=== PATIENT | male | born 1960 | race Caucasian/White ===

== ENCOUNTER 2016-11-08 22:25 | Inpatient (IN) | payer MEDICARE ==
[2016-11-08] MEDS ORDERED: ASPIRIN 81 MG CHEW PO STA (22:27)
[2016-11-08] MEDS ORDERED: SODIUM CHLORIDE 0.9% 1,000 ML IV STA ×2 (22:27)
--- NOTE | 2016-11-08 22:40 | ED ---
Syncope HPI - General Stated Complaint: Low Heart Rate Time Seen by Provider: 11/08/16 22:25 Source: patient, EMS, RN notes reviewed Mode of arrival: EMS - History of Present Illness Initial Comments: This is a 55-year-old male with a history of newly diagnosed diabetes history of COPD who still smokes also history of hypertension who had 2 brief syncopal episodes tonight prior to admission by EMS. He states it lasted no more than a minute each he was not really doing much at this time. He has had a recent cardiac workup at [facility]. He did not follow-up after this. He complains some chest tightness that he relates to his stress levels he is mother a lot recently did he was just diagnosed as being diabetic. He was brought in by EMS they did do 2 EKGs which did indicate third-degree heart block. He did attempt atropine which did not help the heart rate. Patient states she has of a history of alcoholic liver disease he has not drank in 5 years. MD Complaint: loss of consciousness - Related Data Home Medications Medication Instructions Recorded Confirmed ALPRAZolam [Xanax] 0.5 mg PO DAILY PRN 10/23/14 06/23/16 Bumetanide [BUMEX] 2 mg PO DAILY PRN 10/23/14 06/23/16 Ergocalciferol [Vitamin D2 50,000 unit PO QMONTH 10/23/14 06/23/16 (DRISDOL)] Gabapentin [Neurontin] 300 - 600 mg PO BID PRN 10/23/14 06/23/16 Lactulose 20 gm PO BID 10/23/14 06/23/16 Lisinopril-Hctz 10-12.5 mg 1 tab PO DAILY 10/23/14 06/23/16 [Zestoretic 10-12.5] Omeprazole [PriLOSEC] 20 mg PO AC-BRKFST 10/23/14 06/23/16 Potassium Chloride [Potassium 20 meq PO DAILY 10/23/14 06/23/16 Chloride ER] Promethazine [Phenergan] 25 mg PO DAILY PRN 10/23/14 06/23/16 Cetirizine HCl [Zyrtec] 10 mg PO DAILY 06/23/16 06/23/16 Dicyclomine [Bentyl] 10 mg PO DAILY 06/23/16 06/23/16 Meloxicam [Meloxicam] 15 mg PO DAILY 06/23/16 06/23/16 Multivitamins, Thera [Multivitamin] 1 tab PO DAILY 06/23/16 06/23/16 Simethicone [Gas-X] 125 mg PO DAILY 06/23/16 06/23/16 Thiamine [Vitamin B-1] 100 mg PO DAILY 06/23/16 06/23/16 Previous Rx's Medication Instructions Recorded Meclizine [Antivert] 25 mg PO TID #20 tab 06/23/16 Allergies Allergy/AdvReac Type Severity Reaction Status Date / Time No Known Allergies Allergy Verified 11/08/16 22:28 Review of Systems ROS Statement: Those systems with pertinent positive or pertinent negative responses have been documented in the HPI. ROS Other: All systems not noted in ROS Statement are negative. Past Medical History Past Medical History: COPD, GERD/Reflux, Hypertension Additional Past Medical History / Comment(s): Liver cirrhosis, IBS, Sciatica ddd neuropathy History of Any Multi-Drug Resistant Organisms: None Reported Past Surgical History: Orthopedic Surgery Additional Past Surgical History / Comment(s): left foot surgery Past Psychological History: No Psychological Hx Reported, Anxiety Smoking Status: Current every day smoker Past Alcohol Use History: Occasional Past Drug Use History: None Reported General Exam - General Exam Comments Initial Comments: This is a well-developed well-nourished awake alert oriented 3 male General appearance: alert, anxious Head exam: Present: atraumatic, normocephalic, normal inspection Eye exam: Present: normal appearance, PERRL, EOMI. Absent: scleral icterus, conjunctival injection, periorbital swelling ENT exam: Present: normal exam, mucous membranes moist Neck exam: Present: normal inspection. Absent: tenderness, meningismus, lymphadenopathy Respiratory exam: Present: normal lung sounds bilaterally. Absent: respiratory distress, wheezes, rales, rhonchi, stridor Cardiovascular Exam: Present: bradycardia. Absent: systolic murmur, diastolic murmur, rubs, gallop, clicks GI/Abdominal exam: Present: soft, normal bowel sounds. Absent: distended, tenderness, guarding, rebound, rigid Rectal exam: Present: deferred Extremities exam: Present: normal inspection, full ROM, normal capillary refill. Absent: tenderness, pedal edema, joint swelling, calf tenderness Back exam: Present: normal inspection Neurological exam: Present: alert, oriented X3, CN II-XII intact Psychiatric exam: Present: anxious Skin exam: Present: warm, dry, intact, normal color. Absent: rash Course Vital Signs 11/08/16 11/08/16 11/08/16 22:28 22:52 22:59 Temperature 97.2 F L Pulse Rate 26 L 28 L 35 L Respiratory 18 16 16 Rate Blood Pressure 124/59 116/58 O2 Sat by Pulse 100 94 L 94 L Oximetry - Reevaluation(s) Reevaluation #1: 11/08/16 22:40 I did discuss the case with Dr. Max from cardiology. Patient be started on dopamine the State Tested Nursing Assistant has been activated. Reevaluation #2: 11/08/16 23:12 Patient was started on dopamine minimal response to his heart rate. Reevaluation #3: 11/08/16 23:12 Dr. Stallings did come to the emergency department and did see the patient. Patient potassium was noted to be 4.3 is magnesium was 1.3 magnesium was ordered the State Tested Nursing Assistant is rated the patient will go to the State Tested Nursing Assistant. EKG Findings - EKG Results: EKG: interpreted by ERMD (Bradycardia with third-degree AV block rate was 31 QRS 192 QT/QTC of 620/445 evidence of septal infarct right bundle-branch block pattern.) Medical Decision Making - Medical Decision Making the patient will be transferred to the State Tested Nursing Assistant for pacemaker placement. I did discuss patient's stay with him as well as with his daughter who is a wheel blocker. - Lab Data Result diagrams: 11/08/16 22:33 11/08/16 22:33 Lab Results 11/08/16 11/08/16 11/08/16 Range/Units 22:33 22:33 22:33 WBC 10.0 (3.8-10.6) k/uL RBC 4.40 (4.30-5.90) m/uL Hgb 14.4 (13.0-17.5) gm/dL Hct 41.5 (39.0-53.0) % MCV 94.2 (80.0-100.0) fL MCH 32.7 (25.0-35.0) pg MCHC 34.8 (31.0-37.0) g/dL RDW 14.1 (11.5-15.5) % Plt Count 180 (150-450) k/uL Neutrophils % 67 % Lymphocytes % 21 % Monocytes % 6 % Eosinophils % 4 % Basophils % 1 % Neutrophils # 6.7 (1.3-7.7) k/uL Lymphocytes # 2.1 (1.0-4.8) k/uL Monocytes # 0.6 (0-1.0) k/uL Eosinophils # 0.4 (0-0.7) k/uL Basophils # 0.1 (0-0.2) k/uL PT (9.0-12.0) sec INR (<1.1) APTT (22.0-30.0) sec Sodium 141 (137-145) mmol/L Potassium 4.3 (3.5-5.1) mmol/L Chloride 104 (98-107) mmol/L Carbon Dioxide 26 (22-30) mmol/L Anion Gap 11 mmol/L BUN 17 (9-20) mg/dL Creatinine 1.27 H (0.66-1.25) mg/dL Est GFR (MDRD) Af Amer >60 (>60 ml/min/1.73 sqM) Est GFR (MDRD) Non-Af 59 (>60 ml/min/1.73 sqM) Glucose 145 H (74-99) mg/dL Calcium 9.1 (8.4-10.2) mg/dL Magnesium 1.3 L (1.6-2.3) mg/dL Total Bilirubin 0.9 (0.2-1.3) mg/dL AST 35 (17-59) U/L ALT 31 (21-72) U/L Alkaline Phosphatase 107 (38-126) U/L Total Creatine Kinase 65 (55-170) U/L CK-MB (CK-2) 0.6 (0.0-2.4) ng/mL CK-MB (CK-2) Rel Index 0.9 Troponin I 0.020 (0.000-0.034) ng/mL Total Protein 7.2 (6.3-8.2) g/dL Albumin 4.1 (3.5-5.0) g/dL 11/08/16 Range/Units 22:33 WBC (3.8-10.6) k/uL RBC (4.30-5.90) m/uL Hgb (13.0-17.5) gm/dL Hct (39.0-53.0) % MCV (80.0-100.0) fL MCH (25.0-35.0) pg MCHC (31.0-37.0) g/dL RDW (11.5-15.5) % Plt Count (150-450) k/uL Neutrophils % % Lymphocytes % % Monocytes % % Eosinophils % % Basophils % % Neutrophils # (1.3-7.7) k/uL Lymphocytes # (1.0-4.8) k/uL Monocytes # (0-1.0) k/uL Eosinophils # (0-0.7) k/uL Basophils # (0-0.2) k/uL PT 11.9 (9.0-12.0) sec INR 1.2 (<1.1) APTT 24.8 (22.0-30.0) sec Sodium (137-145) mmol/L Potassium (3.5-5.1) mmol/L Chloride (98-107) mmol/L Carbon Dioxide (22-30) mmol/L Anion Gap mmol/L BUN (9-20) mg/dL Creatinine (0.66-1.25) mg/dL Est GFR (MDRD) Af Amer (>60 ml/min/1.73 sqM) Est GFR (MDRD) Non-Af (>60 ml/min/1.73 sqM) Glucose (74-99) mg/dL Calcium (8.4-10.2) mg/dL Magnesium (1.6-2.3) mg/dL Total Bilirubin (0.2-1.3) mg/dL AST (17-59) U/L ALT (21-72) U/L Alkaline Phosphatase (38-126) U/L Total Creatine Kinase (55-170) U/L CK-MB (CK-2) (0.0-2.4) ng/mL CK-MB (CK-2) Rel Index Troponin I (0.000-0.034) ng/mL Total Protein (6.3-8.2) g/dL Albumin (3.5-5.0) g/dL - Radiology Data Radiology results: image reviewed Critical Care Time Critical Care Time: Yes Critical Care Time: 42 minutes of critical care time which includes monitoring the EMS run and review the transmitted EKGs. Discussed with paramedics. Discussed with the patient and family members. Multiple reevaluation of the patient response to therapy. Discussion with the roads and parking lots sweeper operator discuss with the admitting physician. Documentation of the above and admission orders initially. Disposition Clinical Impression: Third degree heart block, Syncope and collapse Disposition: ADMITTED IP TO THIS HOSP Condition: Serious
[2016-11-08 22:41] LABS: Basophils # (A) 0.1 k/uL (0-0.2); Basophils % (A) 1 %; CH 32.5; CHCM 34.8; Eosinophils # (A) 0.4 k/uL (0-0.7); Eosinophils % (A) 4 %; HCT 41.5 % (39.0-53.0); HDW 3.15; HGB 14.4 gm/dL (13.0-17.5); Luc # (Auto) 0.22; Luc % (Auto) 2; Lymphocytes # (A) 2.1 k/uL (1.0-4.8); Lymphocytes % (A) 21 %; MCH 32.7 pg (25.0-35.0); MCHC 34.8 g/dL (31.0-37.0); MCV 94.2 fL (80.0-100.0); Mean Platelet Volume 8.2; Monocytes # (A) 0.6 k/uL (0-1.0); Monocytes % (A) 6 %; Neutrophils # (A) 6.7 k/uL (1.3-7.7); Neutrophils % (A) 67 %; RDW 14.1 % (11.5-15.5); WBC (Perox) 9.35
[2016-11-08] MEDS ORDERED: DOPamine DRIP 800 MG in DEXTROSE/WATER 1 500ML.BAG IV ONE (22:41)
[2016-11-08 22:51] LABS: INR 1.2 (<1.1); Partial Thromboplastin Time 24.8 sec (22.0-30.0); Prothrombin Time 11.9 sec (9.0-12.0)
[2016-11-08 22:54] LABS: ALT 31 U/L (21-72); AST 35 U/L (17-59); Alkaline Phosphatase 107 U/L (38-126); Anion Gap 11 mmol/L; Blood Urea Nitrogen 17 mg/dL (9-20); Calcium 9.1 mg/dL (8.4-10.2); Carbon Dioxide 26 mmol/L (22-30); Chloride 104 mmol/L (98-107); Glucose 145 mg/dL (74-99); Magnesium 1.3 mg/dL (1.6-2.3); Non-African American GFR(MDRD) 59 (>60 ml/min/1.73 sqM); Potassium 4.3 mmol/L (3.5-5.1); Sodium 141 mmol/L (137-145); Total Bilirubin 0.9 mg/dL (0.2-1.3); Total Protein 7.2 g/dL (6.3-8.2)
[2016-11-08] MEDS ORDERED: MAGNESIUM SULFATE-D5W PMX 1 GM in DEXTROSE/WATER 1 100ML.BAG IVPB ONE (23:03)
[2016-11-08] MEDS ORDERED: ONDANSETRON 4 MG/2 ML VIAL IVP STA (23:06)
[2016-11-08 23:15] LABS: Creatine Kinase MB 0.6 ng/mL (0.0-2.4); Troponin I 0.02 ng/mL (0.000-0.034)
[2016-11-08] MEDS ORDERED: LIDOCAINE 2% INJ 20 MG/ML SQ ONE (23:27)
--- NOTE | 2016-11-08 23:30 | XR ---
EXAM: XR Chest, 1 View. CLINICAL HISTORY: Pain. TECHNIQUE: Frontal view of the chest. COMPARISON: CXR dated 10/23/2014. FINDINGS: Lungs: Probable basilar atelectasis. No evidence of focal consolidation. No pulmonary edema. Pleural space: No pleural effusion. No pneumothorax. Heart: Cardiac silhouette size within normal limits. Mediastinum: No definite mediastinal abnormality evident radiographically. Bones/joints: Osseous structures appear intact. IMPRESSION: 1. Probable mild basilar atelectasis. No focal consolidation or pulmonary edema. 2. No pleural effusion or pneumothorax. 3. Cardiac silhouette size within normal limits.
[2016-11-08] MEDS ORDERED: MIDAZOLAM 2 MG/2 ML VIAL ONE (23:33)
[2016-11-08] MEDS ORDERED: ONDANSETRON 4 MG/2 ML VIAL ONE (23:38)
[2016-11-08] MEDS ORDERED: MIDAZOLAM 2 MG/2 ML VIAL IV ONE (23:40)
[2016-11-08] MEDS ORDERED: ONDANSETRON 4 MG/2 ML VIAL IVP ONE (23:45)
[2016-11-08] MEDS ORDERED: IV FLUID CONTINUATION 1,000 ML IV ONE (23:50)
[2016-11-09 00:15] LABS: Glucose,Whole Blood 199 mg/dL (75-99)
[2016-11-09 01:18] VITALS: BMI 39.6
[2016-11-09] MEDS: SODIUM CHLORIDE 0.9% 1,000 ML IV SCH ×3 (03:49→10:04)
[2016-11-09 04:35] LABS: Basophils % (A) 0 %; CH 32.5; CHCM 34.5; Eosinophils # (A) 0.1 k/uL (0-0.7); Eosinophils % (A) 2 %; HCT 40.6 % (39.0-53.0); HDW 3.08; HGB 13.3 gm/dL (13.0-17.5); Luc # (Auto) 0.11; Luc % (Auto) 2; Lymphocytes # (A) 1.3 k/uL (1.0-4.8); Lymphocytes % (A) 19 %; MCH 31.1 pg (25.0-35.0); MCHC 32.8 g/dL (31.0-37.0); Mean Platelet Volume 7.7; Monocytes # (A) 0.4 k/uL (0-1.0); Monocytes % (A) 5 %; Neutrophils # (A) 4.9 k/uL (1.3-7.7); Neutrophils % (A) 72 %; RBC 4.27 m/uL (4.30-5.90); RDW 13.9 % (11.5-15.5); WBC 6.8 k/uL (3.8-10.6); WBC (Perox) 7.05
[2016-11-09 04:44] LABS: Magnesium 1.7 mg/dL (1.6-2.3); Phosphorous 3.7 mg/dL (2.5-4.5); Potassium 4.4 mmol/L (3.5-5.1)
[2016-11-09 07:26] LABS: Glucose,Whole Blood 112 mg/dL (75-99)
--- NOTE | 2016-11-09 07:30 | PCN ---
DATE OF PROCEDURE: PROCEDURE PERFORMED : A temporary transvenous pacemaker. INDICATION: Complete heart block. PROCEDURE NOTE: After obtaining informed consent, temporary transvenous pacemaker was placed via the right femoral vein. Femoral vein access was obtained using modified Seldinger technique. Temporary transvenous pacemaker wire was floated under fluoroscopic guidance all the way into the right ventricle and adequate pacing thresholds were obtained. Pacemaker was set at 80 beats per minute with 4 mV. He was pacing consistently and was pacing all the way down 0.75. He tolerated the procedure well without any obvious complications.
--- NOTE | 2016-11-09 07:34 | CONS ---
DATE OF CONSULTATION: INDICATIONS: Syncope 55-year-old gentleman who presented to hospital with complete heart block and he had 2 episodes of syncope that lasted for a few minutes each time. When he came to the ER he was found to be in complete heart block and I was consulted for the same. At the time of my evaluation, the patient was nauseous and was vomiting at times and had a heart rate in the 30s without any response to atropine and dopamine. His serum potassium was normal. He was advised to undergo emergent temporary transvenous pacemaker. He was explained of the risks, including the risk of infection, vascular injury bleeding and myocardial perforation with tamponade. Understanding all of the issues, she wishes to proceed with it and this will be done expeditiously. Past medical history is significant for COPD, hypertension, diabetes. Medications I do not have a list with me. ALLERGIES: He denies any. FAMILY HISTORY: Negative for premature coronary artery disease. SOCIAL HISTORY: Significant for smoking. There is no history of ETOH abuse, or drug abuse. REVIEW OF SYSTEMS: HEENT: Unremarkable. CARDIAC: As described above. RESPIRATORY: Negative. GASTROINTESTINAL: negative. GENITOURINARY: Negative. Allergy/immunology: Negative. SKIN: Negative. MUSCULOSKELETAL: Significant for arthritis. PSYCHOSOCIAL: Negative. Dermatology: Negative. CONSTITUTIONAL: Negative. Oncological: Negative. The rest of the system review is not relevant. On exam, heart rate is 54 beats per minute, blood pressure is 130/70, respiratory rate is 18 and there is no jugular venous distention. Chest exam reveals and good air entry bilaterally. Heart exam reveals first and second heart sounds. No gallop. No murmur, no rub. ABDOMEN: Soft. Exam of the extremities did not reveal any edema. Peripheral pulses are palpable. Labs have been reviewed. EKG has been reviewed. ASSESSMENT: Syncope secondary to complete heart block. PLAN: Patient will undergo temporary transvenous pacemaker.
[2016-11-09] MEDS ORDERED: ceFAZolin 2 GM in SODIUM CHLORIDE 0.9% 100 ML IVPB ONE (09:28)
[2016-11-09] MEDS ORDERED: ceFAZolin 1,000 MG in SODIUM CHLORIDE 0.9% IRRIGATIO 250 ML IRRIGATION ONE (09:28)
[2016-11-09] MEDS ORDERED: GABAPENTIN 300 MG CAP PO PRN (11:02)
[2016-11-09] MEDS ORDERED: ALBUTEROL NEBULIZED 2.5 MG/3 ML INHALATION PRN (11:02)
--- NOTE | 2016-11-09 12:17 | HP ---
DATE OF ADMISSION: 11/08/2016 Patient is a 55-year-old female with a history of COPD and morbidly obese, probably has sleep apnea, never tested for that. Came in with 2 episodes of syncope. Patient was found to be in third-degree heart block. Patient has multiple such episodes in the past, since last year on and off once every few months and patient is now found to be in third degree or complete heart block which did not respond to dopamine or atropine. Patient underwent transvenous pacemaker placement and patient is going for permanent pacemaker placement. There are no ST-T wave changes. Other significant labs are troponin is elevated to 0.6 and patient denied any fever, chills. Patient denied any nausea, vomiting, abdominal pain, dysuria. REVIEW OF SYSTEMS: CONSTITUTIONAL: No fever, no malaise, no fatigue. HEENT: No recent visual problems or hearing problems. Denied any sore throat. CARDIOVASCULAR: As described in HPI. PULMONARY: No shortness of breath, no cough, no hemoptysis. GASTROINTESTINAL: No diarrhea, no nausea, no vomiting, no abdominal pain. Normoactive bowel sounds. NEUROLOGICAL: No headaches, no weakness, no numbness. HEMATOLOGICAL: Denies any bleeding or petechiae. GENITOURINARY: Denies any burning micturition, frequency, or urgency. MUSCULOSKELETAL/RHEUMATOLOGICAL: Denies any joint pain, swelling, or any muscle pain. ENDOCRINE: Denies any polyuria or polydipsia. The rest of the 14 point review of systems is negative. Home medications include alprazolam, Bumex, ergocalciferol, gabapentin, lactulose, lisinopril hydrochlorothiazide, Zyrtec, omeprazole, potassium chloride, Phenergan, cetirizine, dicyclomine, meloxicam, multivitamin, ( ), thiamine and meclizine. ALLERGIES: No known drug allergies. PAST MEDICAL HISTORY: Significant for COPD, gastroesophageal reflux disease, hyperlipidemia, irritable bowel syndrome, morbid obesity. SOCIAL HISTORY: The patient does smoke a pack per day. Denied any alcohol abuse or any drug abuse. FAMILY HISTORY: Significant for hypertension. PHYSICAL EXAMINATION: Temperature 98.1, pulse of 80, respiratory rate of 14, blood pressure is 117/84, saturating at 95% on room air. GENERAL: Morbidly obese, alert and oriented x3. HEENT: Pupils are round and equally reacting to light. EOMI. No scleral icterus. No conjunctival pallor. Normocephalic, atraumatic. No pharyngeal erythema. No thyromegaly. CARDIOVASCULAR: S1 and S2 present. No murmurs, rubs, or gallops. PULMONARY: Chest is clear to auscultation, no wheezing or crackles. ABDOMEN: Soft, nontender, nondistended, normoactive bowel sounds. No palpable organomegaly. MUSCULOSKELETAL: No joint swelling or deformity. EXTREMITIES: No cyanosis, clubbing, or pedal edema. NEUROLOGICAL: Gross neurological examination did not reveal any focal deficits. SKIN: No rashes. LABORATORY DATA: CBC, CMP are abnormal for mildly elevated creatinine 1.27. I do not have the repeat creatinine today. Troponin first one is 0.020. The second one is 0.069. TSH is essentially within normal limits. ASSESSMENT AND PLAN: 1. Single episode secondary to third-degree heart block. Patient is going for a pacemaker replacement today. 2. Mildly elevated troponin, probably due to procedure, that is temporary transvenous pacemaker placement, further evaluation as per Cardiology. Further management as per Cardiology. EKG did not show any acute ST-T wave changes. Patient does not have any chest pain at this point of time. 3. Hypomagnesemia, which was replaced. 4. Morbid obesity. 5. Chronic obstructive pulmonary disease without any acute exacerbation. 6. Hypertension. We will hold off antihypertensives. Patient is hypotensive when he came in. 7. Diabetes mellitus, will use sliding scale insulin, hold off on metformin and because of his poor renal function, patient cannot use meloxicam either. 8. Gastroesophageal reflux disease. 9. Acute versus chronic kidney disease. I do not have any of his baseline creatinine here. Will hydrate him and see if his creatinine improves. Patient cannot use metformin because of the above disease and get permanent pacemaker placement because of which patient cannot use metformin. Will use sliding scale insulin. Patient's primary care physician is Dr. Brigido Guajardo.
[2016-11-09] MEDS ORDERED: Magnesium Replacement Protocol 1 EACH MISC MISCELLANE PRN (12:19)
[2016-11-09 12:24] LABS: Glucose,Whole Blood 117 mg/dL (75-99)
[2016-11-09] MEDS: INSULIN LISPRO (humaLOG) 300 UNIT/3 ML VIAL SQ SCH ×3 (12:30→20:18)
[2016-11-09] MEDS ORDERED: IV FLUID CONTINUATION 1,000 ML IV ONE (12:30)
[2016-11-09] MEDS ORDERED: SODIUM CHLORIDE 0.9% 250 ML IV ONE (12:30)
[2016-11-09] MEDS ORDERED: MIDAZOLAM 2 MG/2 ML VIAL ONE ×2 (12:50→13:22)
[2016-11-09] MEDS ORDERED: fentaNYL (PF) 50 MCG/ML 2 ML AMP ONE (12:50)
[2016-11-09] MEDS ORDERED: IODIXANOL 320 MG/ML 100 ML IV ONE (13:05)
[2016-11-09] MEDS ORDERED: MIDAZOLAM 2 MG/2 ML VIAL IV ONE ×2 (13:05→13:40)
[2016-11-09] MEDS ORDERED: fentaNYL (PF) 50 MCG/ML 2 ML AMP IV ONE (13:06)
[2016-11-09] MEDS ORDERED: HYDROmorphone 2 MG/ML 1 ML SYRINGE ONE (13:12)
[2016-11-09] MEDS: HYDROmorphone 2 MG/ML 1 ML SYRINGE IV ONE ×2 (13:15→14:03)
[2016-11-09] MEDS: MAGNESIUM SULFATE-D5W PMX 1 GM in DEXTROSE/WATER 1 100ML.BAG IVPB SCH ×2 (13:20→14:54)
[2016-11-09] MEDS ORDERED: ACETAMINOPHEN TAB 325 MG TAB PO PRN (14:12)
[2016-11-09] MEDS ORDERED: ceFAZolin 1,000 MG in DEXTROSE/WATER 1 50ML.BAG IVPB STA (14:23)
--- NOTE | 2016-11-09 14:23 | P.PCN ---
Date of Procedure: 11/09/16 Preoperative Diagnosis: Complete heart block bradycardia and syncope Postoperative Diagnosis: The same Procedure(s) Performed: Axillary venography and dual-chamber permanent pacemaker implantation Description of Procedure: HISTORY: This is a 51-year-old gentleman with history of diabetes and obesity with history of recurrent syncopes who came to the emergency room with a 2 syncope is yesterday. Patient was found to have complete AV dissociation with a right bundle branch block pattern. Patient had a temporary pacemaker done by Dr. Max. Patient is advised to have permanent pacemaker implantation. CONSENT:I have discussed the risks, benefits and alternative therapies for the above-mentioned procedure and for both sedation/analgesia as well as necessary blood product administration, if indicated, as they pertain to this patient. The patient has indicated understanding and acceptance of the risks and procedures discussed. CONSCIOUS SEDATION: Patient was given conscious sedation with combination of Versed 3 mg, 50 of fentanyl and 0.5 of Dilaudid. Total duration of the, sedation was one hour PROCEDURE: Patient was brought to the lab in a fasting state. Patient was prepped and draped in the usual fashion. Patient was given IV sedation with fentanyl and Versed. The skin below the left clavicle was infiltrated with lidocaine. An incision was made parallel to deltopectoral groove was deepened until the pectoral fascia was exposed. A pocket was created by blunt dissection and cautery. Axillary venography was performed to delineate the course of the axillary vein. 2 sticks were performed into extrathoracic portion of the axillary vein and 2 sheaths were advanced over the guidewires and left in subclavian vein. LEADS: ATRIAL: This is manufactured by [employer]. Model number is 7741. Serial number is [id number] VENTRICULAR: This is manufactured by [employer]. Model number is 7742 and the serial number is [id number]. THE DEVICE: This is manufactured by [employer]. Model number is L111 and the serial number is [id number]. The ventricular lead is maneuvered l with help of a straight and curved stylets into the left ventricle apical region. Satisfactory position was obtained and threshold measurements were made. The atrial lead was then maneuvered into the right atrial appendage. And thresholds were obtained. THRESHOLDS: ATRIUM: The minimum patient threshold is 0.6 V at pulse width of 0.5 ms. Impedance is 540 ohms. P-wave: Is 1.5 mV VENTRICLE the minimal patient threshold was 0.8 V at pulse width of 0.5 ms impedance was 8 and 64 ohms. R-wave: Could not be measured The leads and pulse generator remained in the pocket after it was washed with antibiotics. Pocket was closed in the usual fashion. The fascia was closed with 2-0 Prolene ,the subcutaneous tissue was closed with 3-0 Prolene and the skin was closed with 4-0 Prolene. PROGRAMMING: MODE: DDD RATE: 60 to 130 OUTPUT: Atrium Otilio 3.5 V at pulse width of 0.5 ms ventricle: 5 V at a pulse width of 0.5 ms FINAL IMPRESSION: #1. Axillary venography #2. Insertion of a dual-chamber permanent pacemaker . #3 removal of temporal pacemaker under fluoroscopy. COMPLICATIONS: Nil PLAN: Continue prophylactic antibiotics. Continue to monitor him on the telemetry unit. Chest x-ray in the morning. Further recommendations depend upon clinical course.
[2016-11-09 17:36] LABS: Glucose,Whole Blood 134 mg/dL (75-99)
[2016-11-09] MEDS: ceFAZolin 3 GM in SODIUM CHLORIDE 0.9% 100 ML IVPB SCH ×2 (18:19→23:36)
--- NOTE | 2016-11-09 19:40 | PN ---
This patient was admitted last night with history of syncope. Patient was found to be in complete heart block. The patient had a temporary pacemaker placed in. The patient is doing well. He is comfortable. Denies any chest pain or shortness of breath. The patient is pacing 100%. Patient has a past history of cirrhosis of the liver. He did have intermittent episodes of few episodes of syncope in the last few months. Patient's heart rate is 60 per minute. Blood pressure is 122/81 mmHg, first and second heart sounds are normal. Lungs are clinically clear to auscultation and percussion. Patient's blood pressure is at present being maintained at 100 systolic. Patient's electrolytes are normal. Chest x-ray does not show any evidence of failure. Patient was explained the procedure about the permanent pacemaker procedure and the risks were fully explained to the patient and he wants to proceed with it.
[2016-11-09 20:14] LABS: Glucose,Whole Blood 177 mg/dL (75-99)
[2016-11-09 20:30] LABS: Hemoglobin A1C 7.3 % (4.2-6.1)
[2016-11-09] MEDS: HYDROcodone/APAP 7.5-325MG 1 EACH TAB PO PRN (21:42)
[2016-11-10 05:00] LABS: Basophils # (A) 0.1 k/uL (0-0.2); Basophils % (A) 1 %; CH 32.2; CHCM 34.4; Eosinophils # (A) 0.2 k/uL (0-0.7); Eosinophils % (A) 5 %; HDW 3.12; HGB 12.7 gm/dL (13.0-17.5); Luc # (Auto) 0.09; Luc % (Auto) 2; Lymphocytes # (A) 1.3 k/uL (1.0-4.8); Lymphocytes % (A) 26 %; MCH 32.3 pg (25.0-35.0); MCHC 34.3 g/dL (31.0-37.0); MCV 94.3 fL (80.0-100.0); Mean Platelet Volume 7.9; Monocytes # (A) 0.3 k/uL (0-1.0); Monocytes % (A) 5 %; Neutrophils % (A) 61 %; RBC 3.93 m/uL (4.30-5.90); WBC 4.9 k/uL (3.8-10.6); WBC (Perox) 4.97
[2016-11-10 05:12] LABS: Anion Gap 8 mmol/L; Blood Urea Nitrogen 15 mg/dL (9-20); Calcium 8.2 mg/dL (8.4-10.2); Carbon Dioxide 28 mmol/L (22-30); Chloride 104 mmol/L (98-107); Glucose 102 mg/dL (74-99); Magnesium 1.9 mg/dL (1.6-2.3); Non-African American GFR(MDRD) >60 (>60 ml/min/1.73 sqM); Phosphorous 4.3 mg/dL (2.5-4.5); Potassium 4.1 mmol/L (3.5-5.1); Sodium 140 mmol/L (137-145)
[2016-11-10] MEDS: ceFAZolin 3 GM in SODIUM CHLORIDE 0.9% 100 ML IVPB SCH ×2 (06:35→12:36)
[2016-11-10 07:26] LABS: Glucose,Whole Blood 129 mg/dL (75-99)
[2016-11-10] MEDS: INSULIN LISPRO (humaLOG) 300 UNIT/3 ML VIAL SQ SCH ×4 (07:36→21:07)
[2016-11-10] MEDS: ATORVASTATIN 20 MG TAB PO SCH (07:48)
[2016-11-10] MEDS: HYDROcodone/APAP 7.5-325MG 1 EACH TAB PO PRN (07:48)
[2016-11-10] MEDS: PANTOPRAZOLE 40 MG TABLET PO SCH (07:48)
[2016-11-10] MEDS: SODIUM CHLORIDE 0.9% 1,000 ML IV SCH (09:03)
--- NOTE | 2016-11-10 09:20 | XR ---
EXAMINATION TYPE: XR chest 2V DATE OF EXAM: 11/10/2016 6:25 AM COMPARISON: 11/08/2016 TECHNIQUE: PA and lateral views submitted. HISTORY: Lead placement check FINDINGS: The lungs are clear and there is no pneumothorax, pleural effusion, or focal pneumonia. Double lead cardiac device seen with the proximal lead overlying the right atrium and distal lead ove rlying the right ventricle. Arthropathy of the shoulders noted. IMPRESSION: 1. Pacemaker noted with leads appearing to be in appropriate position.
[2016-11-10 11:56] LABS: Glucose,Whole Blood 133 mg/dL (75-99)
[2016-11-10] MEDS: LISINOPRIL 10 MG TAB PO SCH (14:42)
[2016-11-10] MEDS: LORATADINE 10 MG TAB PO SCH (14:42)
[2016-11-10] MEDS: amLODIPine 5 MG TAB PO SCH (14:42)
[2016-11-10] MEDS: MECLIZINE 25 MG TAB PO SCH ×2 (16:11→21:07)
--- NOTE | 2016-11-10 16:46 | PN ---
This patient came with dizzy spell and syncopal spell. Patient was in complete heart block. He underwent permanent pacemaker yesterday. Patient is doing well. Patient is 100% pacemaker-dependent and the pacemaker is working normally. However, patient feels that his head is stuffy and he feels dizzy when he turns his head. Patient had an evaluation as an outpatient and he was supposed to have an MRI done. Blood pressure is 180/80 mmHg. HEART: S1, S2 normal. Lungs are clinically clear to auscultation and percussion. PLAN: We will resume the patient's blood pressure medications. We will start the patient on Antivert 25 mg t.i.d. and get ENT evaluation.
[2016-11-10 17:16] LABS: Glucose,Whole Blood 130 mg/dL (75-99)
[2016-11-10 17:20] LABS: Appearance,Urine Clear (Clear); Bilirubin,Urine Negative (Negative); Glucose,Urine (UA) Negative (Negative); Ketones,Urine Negative (Negative); Leukocyte Esterase,Urine Negative (Negative); Nitrite,Urine Negative (Negative); PH, Urine 5.5 (5.0-8.0); Protein,Urine Negative (Negative); Specific Gravity,Urine 1.004 (1.001-1.035); UA Billing (MACRO vs. MICRO) CHEM; Urobilinogen,Urine <2.0 mg/dL (<2.0)
[2016-11-10 21:06] LABS: Glucose,Whole Blood 138 mg/dL (75-99)
--- NOTE | 2016-11-10 22:51 | CONS ---
DATE OF CONSULTATION: REASON FOR CONSULTATION: Dizziness. HISTORY: This is a 55-year-old white male whom I had seen in the office on September 22 for vertigo. He has had vertigo intermittently for about 10 months now, with the episodes typically lasting 5 seconds. He described this as a spinning type of vertigo with rapid head turning. He had been evaluated on 3 separate occasions in the emergency departments in January, March and May of last year for these episodes; at that time he was having some episodes lasting a few minutes but then being off balance for about an hour. In May last year he states he had a CT scan of the head which was negative and he was placed on Antivert. He also with his ER visits had EKGs and labs which were apparently negative. He was in the office in March; however, he had not been symptomatic since May. I recommended consideration of MRI and ENG, although he deferred these tests, as he was asymptomatic. He had bilateral ( ) hearing loss noted from noise exposure objectively in the office. He subsequently in October did have a brief episode of vertigo again and therefore called to schedule an ENG and MRI. These were upcoming this month. A few days ago, however, on November 08, he had not his typical vertigo, but felt a little off balance. But then he had a couple of fainting episodes/syncopal episodes and went to the [facility] ER, where he was noted to be in heart block. He was then transported here and has undergone a permanent pacemaker yesterday. He is pacing well now. He was doing well, but then today he felt a little bit of vertigo which was a mild spinning sensation; however, no nausea. He was restarted on Antivert today and feels that this is helping. He is having no headache, focal neurologic symptoms, visual changes. Past medical history is positive for: 1. Reflux. 2. Allergies. 3. Cataracts. 4. Depression. 5. Diabetes. 6. COPD. 7. Gout. 8. ( ) 9. Irritable bowel syndrome. 10. Obesity. PAST SURGICAL HISTORY: As above. ALLERGIES: NO KNOWN DRUG ALLERGIES. FAMILY HISTORY: Noncontributory. SOCIAL HISTORY: Did drink alcohol; does not now. Tobacco use current. REVIEW OF SYSTEMS: Noncontributory other than as above. PHYSICAL EXAMINATION: He is a well-developed obese white male in no acute distress. He is in the ICU in his bed. Conversant, awake, alert and oriented x3. HEENT: Head normocephalic, atraumatic. EARS: Bilateral canals are clear. Tympanic membranes are unremarkable and mobile. The nose shows no drainage or obstruction. Mouth and throat show no abnormal masses or lesions. NECK: Supple without adenopathy or tenderness. No nystagmus noted on visual exam. NEUROLOGIC: Cranial nerves II through XII are grossly intact. I did not check gait, as he is in his hospital on the monitors. ASSESSMENT: 1. Vertigo. 2. History of complete heart block with bradycardia and syncope. 3. Central hearing loss. PLAN: Suspect that some of the patient's symptoms at least have been cardiac in nature all along; just that they were not captured on previous testing. He certainly may have a secondary vestibular dysfunction; however, this priority is quite low compared to his current issues. Patient did have an MRI scheduled for later this week; however, generally speaking, the MRIs are contraindicated with a pacemaker, and therefore this could be changed to a CT scan of the head if the primary service wants to proceed with further workup while hospitalized. Would be sure he has carotid Doppler studies to be sure his vascular function is intact with good blood flow to the cranium. Antivert is fine symptomatically. He does have an ENG scheduled as an outpatient within the next few weeks in our office, and he can follow up with this still. If there are questions or concerns, please feel free to contact me.
--- NOTE | 2016-11-11 07:04 | DS ---
DATE OF ADMISSION: 11/08/2016 DATE OF DISCHARGE: Patient is admitted for third-degree heart block. The patient underwent permanent pacemaker placement. Patient is clinically doing well. Patient is wheezing quite a bit, but patient does not want to use any steroid inhaler. Anyways, patient will be given Symbicort prescription albuterol and patient says he is going to quit smoking. When he came in, he was hypotensive because of which I had discontinued hydrochlorothiazide. Patient can continue his lisinopril, Patient will not need a diuretic at this point of time. Diuretic was discontinued as well. If cleared by Cardiology, patient will be discharged today. The patient was seen and examined on the day of discharge. Vitals are stable. PHYSICAL EXAMINATION: GENERAL: The patient is alert and oriented x3, not in any acute distress. Well developed, well nourished. HEENT: Pupils are round and equally reacting to light. EOMI. No scleral icterus. No conjunctival pallor. Normocephalic, atraumatic. No pharyngeal erythema. No thyromegaly. CARDIOVASCULAR: S1 and S2 present. No murmurs, rubs, or gallops. PULMONARY: Chest is clear to auscultation, no wheezing or crackles. ABDOMEN: Soft, nontender, nondistended, normoactive bowel sounds. No palpable organomegaly. MUSCULOSKELETAL: No joint swelling or deformity. EXTREMITIES: No cyanosis, clubbing, or pedal edema. NEUROLOGICAL: Gross neurological examination did not reveal any focal deficits. SKIN: No rashes. ASSESSMENT AND PLAN: 1. Third-degree heart block. Patient is status post permanent pacemaker placement. 2. Elevated troponin, probably due to the procedure and Cardiology is following. 3. Hypomagnesemia, which was replaced. 4. Morbid obesity. 5. Chronic obstructive pulmonary disease with mild acute exacerbation management as mentioned above. 6. Hypertension. 7. Type 2 diabetes mellitus. 8. Gastroesophageal reflux disease. 9. Acute renal failure secondary to diuretic therapy. Diuretic therapy is being discontinued. Renal failure improved. Please refer to my depart summary for further details of discharge medications. Nicotine cessation counseling was provided. DISCHARGE DIET: Cardiac and ADA [address] Follow with Dr. Brigido Guajardo in 3 to 7 days and follow with Cardiology as scheduled. Patient can continue his metformin as his kidney function improved. Spent greater than 35 minutes in total discharge process.
[2016-11-11 07:40] LABS: Glucose,Whole Blood 123 mg/dL (75-99)
[2016-11-11] MEDS: LORATADINE 10 MG TAB PO SCH (08:08)
[2016-11-11] MEDS: ATORVASTATIN 20 MG TAB PO SCH (08:08)
[2016-11-11] MEDS: MECLIZINE 25 MG TAB PO SCH (08:08)
[2016-11-11] MEDS: amLODIPine 5 MG TAB PO SCH (08:08)
[2016-11-11] MEDS: PANTOPRAZOLE 40 MG TABLET PO SCH (08:08)
[2016-11-11] MEDS: LISINOPRIL 10 MG TAB PO SCH (08:08)
[2016-11-11 11:33] LABS: Glucose,Whole Blood 134 mg/dL (75-99)
[2016-11-11] MEDS ORDERED: predniSONE 20 MG TAB PO STA (13:17)
[2016-11-11 13:28] VITALS: RESP 20
[2016-11-11] MEDS: INSULIN LISPRO (humaLOG) 300 UNIT/3 ML VIAL SQ SCH ×2 (13:37→13:38)
[2016-11-11] MEDS ORDERED: IPRATROPIUM-ALBUTEROL 3 ML NEB INHALATION SCH (16:00)
[2016-11-11 16:33] VITALS: BP 146/93; PULSE 66; TEMP 99
--- NOTE | 2016-11-11 19:14 | PN ---
This patient came with a complete heart block. Patient has been feeling fairly well. Denies any chest pain or shortness of breath. Patient's dizziness has improved. Patient's incision looks good. Blood pressure is 146/93 mmHg. HEART: S1 and S2 normal. Lungs are clinically clear to auscultation and percussion. Patient is discharged home on his blood pressure medication as well as Antivert. He will be followed up by Dr. Max in the device clinic.
--- NOTE | 2016-11-12 08:38 | DS ---
DATE OF ADMISSION: 11/08/2016 DATE OF DISCHARGE: 11/11/2016 Patient is admitted with third-degree block. I discharged the patient yesterday, but cardiology wanted to keep him because of because of his vertigo, which is being evaluated as an outpatient. Dr. Mark was consulted. No further recommendations from Dr. Mark. Patient will continue his outpatient work-up for his vertiginous symptoms. Additionally patient is significantly wheezing because of which initially I started him on inhalational steroid, but patient is not willing to fill that medication, because of which I will start him on oral steroids and give him first dose of oral steroids. Patient is still wheezing. The patient was seen and examined on the day of discharge. Vital signs stable. PHYSICAL EXAMINATION: GENERAL: The patient is alert and oriented x3, not in any acute distress. Well developed, well nourished. HEENT: Pupils are round and equally reacting to light. EOMI. No scleral icterus. No conjunctival pallor. Normocephalic, atraumatic. No pharyngeal erythema. No thyromegaly. CARDIOVASCULAR: S1 and S2 present. No murmurs, rubs, or gallops. PULMONARY: Patient is wheezing, moderate respiratory wheezing, moderate expiratory wheezing on exam. ABDOMEN: Soft, nontender, nondistended, normoactive bowel sounds. No palpable organomegaly. MUSCULOSKELETAL: No joint swelling or deformity. EXTREMITIES: No cyanosis, clubbing, or pedal edema. NEUROLOGICAL: Gross neurological examination did not reveal any focal deficits. SKIN: No rashes. Please refer to my dictation of discharge summary from yesterday for further details. Please consider that discharge summary as progress note as patient ended up staying in the hospital yesterday.
== END 2016-11-11 18:50 | disposition home or self-care (01) | DRG 243 ==
LOC: EC 22:25 → 6ICU 23:06
PROVIDERS: ADMIT Internal Medicine; ATTEND Internal Medicine
PROC: 5A1223Z Performance of Cardiac Pacing, Continuous (ICD-10-PCS; 2016-11-08)
PROC: 02H63JZ Insertion of Pacemaker Lead into Right Atrium, Percutaneous Approach (ICD-10-PCS; 2016-11-09)
PROC: 02HK3JZ Insertion of Pacemaker Lead into Right Ventricle, Percutaneous Approach (ICD-10-PCS; 2016-11-09)
PROC: 0JH606Z Insertion of Pacemaker, Dual Chamber into Chest Subcutaneous Tissue and Fascia, Open Approach (ICD-10-PCS; principal; 2016-11-09 12:08)
DX: I44.2 Atrioventricular block, complete (principal); J44.1 Chronic obstructive pulmonary disease with (acute) exacerbation; N17.9 Acute kidney failure, unspecified; I95.9 Hypotension, unspecified; E11.40 Type 2 diabetes mellitus with diabetic neuropathy, unspecified; Z68.41 Body mass index [BMI] 40.0-44.9, adult; K74.60 Unspecified cirrhosis of liver; H90.5 Unspecified sensorineural hearing loss; E66.01 Morbid (severe) obesity due to excess calories; E83.42 Hypomagnesemia; K70.9 Alcoholic liver disease, unspecified; K21.9 Gastro-esophageal reflux disease without esophagitis; I10 Essential (primary) hypertension; I45.10 Unspecified right bundle-branch block; G47.30 Sleep apnea, unspecified; E78.5 Hyperlipidemia, unspecified; K58.9 Irritable bowel syndrome, unspecified; F17.200 Nicotine dependence, unspecified, uncomplicated; M10.9 Gout, unspecified; M54.30 Sciatica, unspecified side; T50.2X5A Adverse effect of carbonic-anhydrase inhibitors, benzothiadiazides and other diuretics, initial encounter; Z86.59 Personal history of other mental and behavioral disorders; Z79.84 Long term (current) use of oral hypoglycemic drugs; Z79.1 Long term (current) use of non-steroidal anti-inflammatories (NSAID); Z79.899 Other long term (current) drug therapy; Z82.49 Family history of ischemic heart disease and other diseases of the circulatory system
CPT/HCPCS: 33208; 33210; 36415; 71010; 71020; 80048; 80051; 80053; 81003; 82550; 82553; 83036; 83735; 84100; 84443; 84484; 85025; 85610; 85730; 93005; 94640; 99291

== ENCOUNTER 2017-01-20 16:21 | Emergency (ER) | payer MEDICARE ==
[2017-01-20 16:34] VITALS: BP 140/88; PULSE 85; RESP 20; TEMP 96.8
[2017-01-20] MEDS ORDERED: DIPH,PERTUS(ACELL)TETVAC-LF 0.5 ML VIAL IM ONE (16:37)
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
--- NOTE | 2017-01-20 17:01 | XR ---
EXAMINATION TYPE: XR foot complete bilateral DATE OF EXAM: 01/20/2017 4:57 PM CLINICAL HISTORY: pain TECHNIQUE: Frontal, lateral and oblique images of the right foot are obtained. COMPARISON: None. FINDINGS: Essentially Nondisplaced fracture involving the proximal phalanx right great toe with intra -articular extension. The joint spaces appear within normal limits. The overlying soft tissue appea rs mildly edematous. IMPRESSION: Virtually nondisplaced fracture proximal phalanx right great toe. ICD 10 closed FRACTURE, INITIAL EVALUATION EXAMINATION TYPE: XR foot complete bilateral DATE OF EXAM: 01/20/2017 4:57 PM CLINICAL HISTORY: pain TECHNIQUE: Frontal, lateral and oblique images of the left foot are obtained. COMPARISON: None. FINDINGS: There is no acute fracture/dislocation evident. The joint spaces appear within normal alberto its. The overlying soft tissue appears unremarkable. IMPRESSION: There is no acute fracture or dislocation. ICD 10 NO FRACTURE, INITIAL EVALUATION
== END 2017-01-20 17:21 | disposition home or self-care (01) ==
LOC: EC 16:21
DX: S90.31XA Contusion of right foot, initial encounter (principal); S90.32XA Contusion of left foot, initial encounter; E78.5 Hyperlipidemia, unspecified; E11.9 Type 2 diabetes mellitus without complications; K21.9 Gastro-esophageal reflux disease without esophagitis; F17.200 Nicotine dependence, unspecified, uncomplicated; Z23 Encounter for immunization; Z98.890 Other specified postprocedural states; Z79.899 Other long term (current) drug therapy
CPT/HCPCS: 90471; 90715; 99283

== ENCOUNTER 2017-01-23 20:12 | Emergency (ER) | payer MEDICARE ==
[2017-01-23] MEDS ORDERED: ASPIRIN 81 MG CHEW PO STA (20:35)
[2017-01-23 20:52] LABS: Basophils # (A) 0.1 k/uL (0-0.2); Basophils % (A) 1 %; CH 32.1; CHCM 34.8; Eosinophils # (A) 0.1 k/uL (0-0.7); Eosinophils % (A) 1 %; HCT 43.7 % (39.0-53.0); HDW 3.24; HGB 15.1 gm/dL (13.0-17.5); Luc # (Auto) 0.15; Luc % (Auto) 1; Lymphocytes # (A) 1.9 k/uL (1.0-4.8); Lymphocytes % (A) 13 %; MCHC 34.5 g/dL (31.0-37.0); MCV 92.8 fL (80.0-100.0); Mean Platelet Volume 6.9; Monocytes # (A) 0.7 k/uL (0-1.0); Monocytes % (A) 5 %; Neutrophils # (A) 11.7 k/uL (1.3-7.7); Neutrophils % (A) 80 %; RDW 15.2 % (11.5-15.5); WBC 14.6 k/uL (3.8-10.6); WBC (Perox) 13.35
--- NOTE | 2017-01-23 20:52 | ED ---
Syncope HPI - General Chief Complaint: Chest Pain Stated Complaint: CHEST PAIN Time Seen by Provider: 01/23/17 20:21 Source: patient, family Mode of arrival: ambulatory Limitations: no limitations - History of Present Illness Initial Comments: This patient is a 56-year-old man who presents to be evaluated for feeling of lightheadedness like he is going to pass out. This is been going on since the afternoon today. The patient states she had gone to the store and noted that when he got up he felt like he was going to pass out. He went and did his shopping and had a number of similar episodes. He states that prior to having his pacemaker implanted he was having similar symptoms, so the patient became concerned that the pacemaker was not working properly and comes to be evaluated. He did have another episode similar to what brought him here, while I was performing history and physical. This occurred when he sat up from being supine on the stretcher. The patient has not had any chest pain, dyspnea, palpitations, diaphoresis, nausea or vomiting. He has not fully passed out but again does feel very lightheaded. MD Complaint: almost passed out -: hour(s) Prodromal Symptoms: lightheaded -: second(s) Witnessed: yes - by bystander Injuries Sustained Associated with Event: None Current Symptoms: back to baseline Context: standing up Treatments Prior to Arrival: none - Related Data Home Medications Medication Instructions Recorded Confirmed ALPRAZolam [Xanax] 0.5 mg PO DAILY PRN 10/23/14 01/23/17 Ergocalciferol [Vitamin D2 50,000 unit PO QMONTH 10/23/14 01/23/17 (DRISDOL)] Omeprazole [PriLOSEC] 20 mg PO AC-BRKFST 10/23/14 01/23/17 Cetirizine HCl [Zyrtec] 10 mg PO DAILY 06/23/16 01/23/17 Dicyclomine [Bentyl] 10 mg PO DAILY 06/23/16 01/23/17 Multivitamins, Thera [Multivitamin] 1 tab PO DAILY 06/23/16 01/23/17 Simethicone [Gas-X] 125 mg PO DAILY 06/23/16 01/23/17 Thiamine [Vitamin B-1] 100 mg PO DAILY 06/23/16 01/23/17 Albuterol Nebulized [Ventolin 2.5 mg INHALATION RT-QID PRN 11/09/16 01/23/17 Nebulized] Atorvastatin [Lipitor] 20 mg PO DAILY 11/09/16 01/23/17 metFORMIN HCL [Glucophage] 500 mg PO BID 11/09/16 01/23/17 Amoxicillin/Potassium Clav 1 tab PO Q12HR 01/20/17 01/23/17 [Augmentin 875-125 Tablet] Budesonide-Formot 160-4.5 Mcg 2 puff INHALATION RT-BID PRN 01/23/17 01/23/17 [Symbicort 160-4.5 Mcg Inhaler] Sulfamethox-Tmp 800-160Mg [Bactrim 1 tab PO Q12HR 01/23/17 01/23/17 Ds] predniSONE 10 mg PO DAILY 01/23/17 01/23/17 Previous Rx's Medication Instructions Recorded Lisinopril [Prinivil] 10 mg PO DAILY #30 tab 11/10/16 amLODIPine BESYLATE [Norvasc] 5 mg PO DAILY #30 tablet 11/11/16 Allergies Allergy/AdvReac Type Severity Reaction Status Date / Time No Known Allergies Allergy Verified 01/23/17 21:07 Review of Systems ROS Statement: Those systems with pertinent positive or pertinent negative responses have been documented in the HPI. ROS Other: All systems not noted in ROS Statement are negative. Constitutional: Denies: fever, chills, weakness Eyes: Denies: vision change Respiratory: Denies: cough, dyspnea, wheezes Cardiovascular: Reports: as per HPI, syncope (Near syncope). Denies: chest pain , palpitations, edema Gastrointestinal: Denies: abdominal pain, vomiting, diarrhea, melena, hematochezia Genitourinary: Denies: dysuria Musculoskeletal: Denies: back pain Skin: Denies: rash Neurological: Denies: headache, weakness, numbness, paresthesias Past Medical History Past Medical History: COPD, Diabetes Mellitus, GERD/Reflux, Hyperlipidemia, Hypertension, Osteoarthritis (OA) Additional Past Medical History / Comment(s): Liver cirrhosis, IBS, Sciatica, ddd, neuropathy, History of Any Multi-Drug Resistant Organisms: None Reported Past Surgical History: Orthopedic Surgery, Pacemaker Additional Past Surgical History / Comment(s): left foot surgery Past Anesthesia/Blood Transfusion Reactions: No Reported Reaction Past Psychological History: Anxiety Smoking Status: Current every day smoker Past Alcohol Use History: Occasional Past Drug Use History: None Reported - Past Family History Father History Unknown: Yes Mother Family Medical History: No Reported History General Exam Limitations: no limitations General appearance: alert, in no apparent distress Head exam: Present: atraumatic, normocephalic Eye exam: Present: normal appearance, PERRL, EOMI. Absent: scleral icterus, conjunctival injection ENT exam: Present: mucous membranes dry Neck exam: Present: normal inspection Respiratory exam: Present: normal lung sounds bilaterally. Absent: respiratory distress, wheezes, rales, rhonchi, stridor Cardiovascular Exam: Present: regular rate, irregular rhythm, normal heart sounds. Absent: systolic murmur, diastolic murmur, rubs, gallop GI/Abdominal exam: Present: soft. Absent: tenderness, guarding, rebound, rigid , mass Extremities exam: Present: normal inspection, normal capillary refill. Absent: pedal edema, calf tenderness Back exam: Present: normal inspection. Absent: CVA tenderness (R), CVA tenderness (L) Neurological exam: Present: alert, oriented X3, CN II-XII intact. Absent: motor sensory deficit Skin exam: Present: warm, dry, intact, normal color. Absent: rash Course Vital Signs 01/23/17 01/23/17 01/23/17 20:16 21:55 22:54 Temperature 97.5 F L 97.4 F L Pulse Rate 78 67 63 Pulse Rate [ Sitting] Pulse Rate [ Standing] Pulse Rate [ Supine] Respiratory 18 20 Rate Blood Pressure 117/83 111/73 114/75 Blood Pressure [Sitting] Blood Pressure [Standing] Blood Pressure [Supine] O2 Sat by Pulse 97 97 97 Oximetry 01/23/17 23:06 Temperature 97.8 F Pulse Rate Pulse Rate [ 63 Sitting] Pulse Rate [ 79 Standing] Pulse Rate [ 63 Supine] Respiratory 20 Rate Blood Pressure Blood Pressure 114/79 [Sitting] Blood Pressure 107/73 [Standing] Blood Pressure 132/79 [Supine] O2 Sat by Pulse 96 Oximetry EKG Findings - EKG Comments: EKG Findings:: The patient's 12-lead EKG shows what appears to be an atrial sensed and ventricular paced rhythm. The rate is proximally 76 bpm. The SD interval 178 ms, QRS duration 184 ms, consistent with paced rhythm, the QTC 528 ms. - EKG Results: EKG: interpreted by [facility] Medical Decision Making - Medical Decision Making This patient is a 56-year-old man who presents to be evaluated for some symptoms that are strongly suggestive of orthostasis. When his vital signs are checked he does have some orthostatic changes. The medical workup is essentially unchanged from his previous. The patient is also feeling better here. I discussed further care and follow-up, and the patient does have mobile ui/ux designer appointment on Thursday. He would like to go home and keep that appointment and he seems stable for this. Discussed return parameters. - Lab Data Result diagrams: 01/23/17 20:30 01/23/17 20:30 Lab Results 01/23/17 01/23/17 01/23/17 Range/Units 20:30 20:30 20:30 WBC 14.6 H (3.8-10.6) k/uL RBC 4.70 (4.30-5.90) m/uL Hgb 15.1 (13.0-17.5) gm/dL Hct 43.7 (39.0-53.0) % MCV 92.8 (80.0-100.0) fL MCH 32.0 (25.0-35.0) pg MCHC 34.5 (31.0-37.0) g/dL RDW 15.2 (11.5-15.5) % Plt Count 237 (150-450) k/uL Neutrophils % 80 % Lymphocytes % 13 % Monocytes % 5 % Eosinophils % 1 % Basophils % 1 % Neutrophils # 11.7 H (1.3-7.7) k/uL Lymphocytes # 1.9 (1.0-4.8) k/uL Monocytes # 0.7 (0-1.0) k/uL Eosinophils # 0.1 (0-0.7) k/uL Basophils # 0.1 (0-0.2) k/uL PT (9.0-12.0) sec INR (<1.1) APTT (22.0-30.0) sec D-Dimer (<0.60) mg/L FEU Sodium 138 (137-145) mmol/L Potassium 3.7 (3.5-5.1) mmol/L Chloride 101 (98-107) mmol/L Carbon Dioxide 23 (22-30) mmol/L Anion Gap 14 mmol/L BUN 14 (9-20) mg/dL Creatinine 1.00 (0.66-1.25) mg/dL Est GFR (MDRD) Af Amer >60 (>60 ml/min/1.73 sqM) Est GFR (MDRD) Non-Af >60 (>60 ml/min/1.73 sqM) Glucose 122 H (74-99) mg/dL Calcium 9.2 (8.4-10.2) mg/dL Magnesium 1.7 (1.6-2.3) mg/dL Total Bilirubin 0.6 (0.2-1.3) mg/dL AST 38 (17-59) U/L ALT 66 (21-72) U/L Alkaline Phosphatase 111 (38-126) U/L Troponin I (0.000-0.034) ng/mL NT-Pro-B Natriuret Pep 764 pg/mL Total Protein 6.7 (6.3-8.2) g/dL Albumin 4.0 (3.5-5.0) g/dL Serum Alcohol mg/dL 01/23/17 01/23/17 01/23/17 Range/Units 20:30 20:30 22:07 WBC (3.8-10.6) k/uL RBC (4.30-5.90) m/uL Hgb (13.0-17.5) gm/dL Hct (39.0-53.0) % MCV (80.0-100.0) fL MCH (25.0-35.0) pg MCHC (31.0-37.0) g/dL RDW (11.5-15.5) % Plt Count (150-450) k/uL Neutrophils % % Lymphocytes % % Monocytes % % Eosinophils % % Basophils % % Neutrophils # (1.3-7.7) k/uL Lymphocytes # (1.0-4.8) k/uL Monocytes # (0-1.0) k/uL Eosinophils # (0-0.7) k/uL Basophils # (0-0.2) k/uL PT 11.4 (9.0-12.0) sec INR 1.1 (<1.1) APTT 23.8 (22.0-30.0) sec D-Dimer 0.62 H (<0.60) mg/L FEU Sodium (137-145) mmol/L Potassium (3.5-5.1) mmol/L Chloride (98-107) mmol/L Carbon Dioxide (22-30) mmol/L Anion Gap mmol/L BUN (9-20) mg/dL Creatinine (0.66-1.25) mg/dL Est GFR (MDRD) Af Amer (>60 ml/min/1.73 sqM) Est GFR (MDRD) Non-Af (>60 ml/min/1.73 sqM) Glucose (74-99) mg/dL Calcium (8.4-10.2) mg/dL Magnesium (1.6-2.3) mg/dL Total Bilirubin (0.2-1.3) mg/dL AST (17-59) U/L ALT (21-72) U/L Alkaline Phosphatase (38-126) U/L Troponin I <0.012 (0.000-0.034) ng/mL NT-Pro-B Natriuret Pep pg/mL Total Protein (6.3-8.2) g/dL Albumin (3.5-5.0) g/dL Serum Alcohol <10 mg/dL Disposition Clinical Impression: Orthostasis Disposition: HOME SELF-CARE Condition: Good Instructions: Hypotension (ED) Referrals: Brigido Guajardo DO [Primary Care Provider] - 1-2 days
[2017-01-23 21:06] LABS: ALT 66 U/L (21-72); AST 38 U/L (17-59); Alkaline Phosphatase 111 U/L (38-126); Anion Gap 14 mmol/L; Blood Urea Nitrogen 14 mg/dL (9-20); Calcium 9.2 mg/dL (8.4-10.2); Carbon Dioxide 23 mmol/L (22-30); Chloride 101 mmol/L (98-107); Glucose 122 mg/dL (74-99); Magnesium 1.7 mg/dL (1.6-2.3); Non-African American GFR(MDRD) >60 (>60 ml/min/1.73 sqM); Potassium 3.7 mmol/L (3.5-5.1); Sodium 138 mmol/L (137-145); Total Bilirubin 0.6 mg/dL (0.2-1.3); Total Protein 6.7 g/dL (6.3-8.2)
[2017-01-23 21:10] LABS: INR 1.1 (<1.1); Partial Thromboplastin Time 23.8 sec (22.0-30.0); Prothrombin Time 11.4 sec (9.0-12.0)
[2017-01-23] MEDS ORDERED: RX INFO: IV CONTRAST WAS GIVEN 1 EACH MISC MISCELLANE PRN (22:03)
--- NOTE | 2017-01-23 23:16 | CT ---
EXAM: CT Angiography Chest With Intravenous Contrast CLINICAL HISTORY: Reason: Pain TECHNIQUE: Axial computed tomographic angiography images of the chest with intravenous contrast using pulmonary embolism protocol. CTDI is 54.80 mGy and DLP is 562.50 mGy-cm. This CT exam was performed using one or more of the following dose reduction techniques: automated exposure control, adjustment of the mA and/or kV according to patient size, and/or use of iterative reconstruction technique. MIP reconstructed images were created and reviewed. COMPARISON: Current chest radiographs FINDINGS: Pulmonary arteries: Unremarkable. No pulmonary embolism. Aorta: No acute findings. No thoracic aortic aneurysm. Lungs: Unremarkable. No mass. No consolidation. Pleural space: Unremarkable. No significant effusion. No pneumothorax. Heart: Atherosclerotic disease includes multifocal coronary artery calcification. No significant pericardial effusion. No evidence of RV dysfunction. Bones/joints: Multilevel degenerative changes. Mild loss of height at T12 appears chronic. Old healed left anterior seventh rib fracture. Soft tissues: Unremarkable. Lymph nodes: Unremarkable. No enlarged lymph nodes. Liver: Diffuse lobulated hepatic contour suggestive of cirrhosis. Tubes, lines and devices: Left-sided 2-lead pacemaker. IMPRESSION: 1. No evidence of pulmonary embolism or acute process seen within the chest. 2. Additional findings include coronary artery calcifications and findings of cirrhosis.
[2017-01-23] MEDS ORDERED: SODIUM CHLORIDE 0.9% 500 ML IV STA (23:33)
[2017-01-24 00:25] VITALS: BP 120/83; PULSE 66; RESP 18; TEMP 97.4
--- NOTE | 2017-01-24 07:28 | XR ---
EXAMINATION TYPE: XR chest 2V DATE OF EXAM: 01/23/2017 9:18 PM COMPARISON: 11/10/2016 HISTORY: 56-year-old male with chest pain TECHNIQUE: Frontal and lateral views FINDINGS: The heart is upper limits of normal in size. Aorta and pulmonary vasculature within normal limits. Christianson zy peripheral lung densities related to overlying soft tissue. Left anterior chest wall pacemaker gen erator with right atrial and right ventricular leads. No consolidation or pleural effusion seen. IMPRESSION: Heart at the upper limits of normal in size. No acute process seen.
== END 2017-01-24 00:29 | disposition home or self-care (01) ==
LOC: EC 20:12
DX: I95.1 Orthostatic hypotension (principal); R07.9 Chest pain, unspecified; R42 Dizziness and giddiness; E11.9 Type 2 diabetes mellitus without complications; K21.9 Gastro-esophageal reflux disease without esophagitis; K58.9 Irritable bowel syndrome, unspecified; E78.5 Hyperlipidemia, unspecified; I10 Essential (primary) hypertension; F17.200 Nicotine dependence, unspecified, uncomplicated; Z79.84 Long term (current) use of oral hypoglycemic drugs; Z79.52 Long term (current) use of systemic steroids; Z79.899 Other long term (current) drug therapy; Z95.0 Presence of cardiac pacemaker
CPT/HCPCS: 36415; 93005; 85379; 83880; 80053; 83735; 84484; 85025; 85610; 85730; 80320; 71020; 71275; 99285; Q9967

== ENCOUNTER 2017-02-10 22:24 | Inpatient (IN) | payer MEDICARE ==
[2017-02-10] MEDS ORDERED: HYDROmorphone 1 MG/ML 1 ML SYRINGE IVP STA (23:10)
--- NOTE | 2017-02-10 23:30 | ED ---
Lower Extremity Injury HPI - General Chief Complaint: Extremity Injury, Lower Stated Complaint: R foot pain Time Seen by Provider: 02/10/17 22:50 Source: patient, RN notes reviewed Mode of arrival: ambulatory Limitations: no limitations - History of Present Illness Initial Comments: 56-year-old male presents to the emergency department with a chief complaint of right toe pain redness and swelling. Patient states noticed this today. Patient states he knows that it is very tender as well. Patient states that when he originally injured the foot he had a blood blister but that seems to have healed and was doing well until today. Patient denies any new falls traumas or injuries supple. Patient does admit to a history of diabetes. Patient denies any recent fever, chills, shortness of breath, chest pain, back pain, abdominal pain, nausea vomiting, numbness or tingling, dysuria or hematuria, constipation or diarrhea, headaches or visual changes, or any other current symptoms. - Related Data Home Medications Medication Instructions Recorded Confirmed ALPRAZolam [Xanax] 0.5 mg PO DAILY PRN 10/23/14 02/10/17 Ergocalciferol [Vitamin D2 50,000 unit PO QMONTH 10/23/14 02/10/17 (DRISDOL)] Omeprazole [PriLOSEC] 20 mg PO AC-BRKFST 10/23/14 02/10/17 Dicyclomine [Bentyl] 10 mg PO DAILY 06/23/16 02/10/17 Multivitamins, Thera [Multivitamin] 1 tab PO DAILY 06/23/16 02/10/17 Simethicone [Gas-X] 125 mg PO DAILY 06/23/16 02/10/17 Thiamine [Vitamin B-1] 100 mg PO DAILY 06/23/16 02/10/17 Albuterol Nebulized [Ventolin 2.5 mg INHALATION RT-QID PRN 11/09/16 02/10/17 Nebulized] Atorvastatin [Lipitor] 20 mg PO DAILY 11/09/16 02/10/17 metFORMIN HCL [Glucophage] 500 mg PO BID 11/09/16 02/10/17 Budesonide-Formot 160-4.5 Mcg 2 puff INHALATION RT-BID PRN 01/23/17 02/10/17 [Symbicort 160-4.5 Mcg Inhaler] Previous Rx's Medication Instructions Recorded Lisinopril [Prinivil] 10 mg PO DAILY #30 tab 11/10/16 amLODIPine BESYLATE [Norvasc] 5 mg PO DAILY #30 tablet 11/11/16 Allergies Allergy/AdvReac Type Severity Reaction Status Date / Time No Known Allergies Allergy Verified 02/10/17 23:37 Review of Systems ROS Statement: Those systems with pertinent positive or pertinent negative responses have been documented in the HPI. ROS Other: All systems not noted in ROS Statement are negative. Past Medical History Past Medical History: COPD, Diabetes Mellitus, GERD/Reflux, Hyperlipidemia, Hypertension Additional Past Medical History / Comment(s): Liver cirrhosis, IBS, Sciatica ddd neuropathy History of Any Multi-Drug Resistant Organisms: None Reported Past Surgical History: Orthopedic Surgery, Pacemaker Additional Past Surgical History / Comment(s): left foot surgery Past Anesthesia/Blood Transfusion Reactions: No Reported Reaction Past Psychological History: Anxiety Smoking Status: Current every day smoker Past Alcohol Use History: Occasional Past Drug Use History: None Reported - Past Family History Father History Unknown: Yes Mother Family Medical History: No Reported History General Exam - General Exam Comments Initial Comments: General: The patient is awake and alert, in no distress, and does not appear acutely ill. Neck: The neck is supple, there is no tenderness. Cardiovascular: There is a regular rate and rhythm. No murmur, rub or gallop is appreciated. Respiratory: Lungs are clear to auscultation, respirations are non-labored, breath sounds are equal. No wheezes, stridor, rales, or rhonchi. Musculoskeletal: Sensation intact with 2+ pulses throughout the reduction. Following reduction of right ankle and right foot. Patient does appear to have erythema and swelling to the right great toe. There is associated pain to palpation. No streaking noted. Neurological: CN II-XII intact, There are no obvious motor or sensory deficits. Coordination appears grossly intact. Speech is normal. Skin: Skin is warm and dry and no rashes or lesions are noted. Psychiatric: Normal mood and affect. Limitations: no limitations Course Vital Signs 02/10/17 02/10/17 22:27 23:59 Temperature 98.0 F 98.4 F Pulse Rate 75 80 Respiratory 18 16 Rate Blood Pressure 151/79 148/80 O2 Sat by Pulse 96 Oximetry Medical Decision Making - Medical Decision Making 56-year-old male presents for appears to be a right great toe cellulitis as well as right great toe fracture. This time we will start patient antibiotics and we will admit the patient. She has an elevated lactic And white count no fever. This time or suspicious that this lactic is not related to sepsis. We' ll repeat a lactic to see how the patient progresses however. We will start IV antibiotics at this time. Due to the localized cellulitis over this foot we will leave the foot as is and have orthopedic follow-up with the patient. Patient is in agreement the plan. - Lab Data Result diagrams: 02/10/17 23:25 02/10/17 23:25 Lab Results 02/10/17 02/10/17 02/10/17 Range/Units 23:25 23:25 23:25 WBC 7.7 (3.8-10.6) k/uL RBC 4.28 L (4.30-5.90) m/uL Hgb 14.0 (13.0-17.5) gm/dL Hct 40.0 (39.0-53.0) % MCV 93.4 (80.0-100.0) fL MCH 32.7 (25.0-35.0) pg MCHC 35.0 (31.0-37.0) g/dL RDW 15.3 (11.5-15.5) % Plt Count 146 L (150-450) k/uL Neutrophils % 65 % Lymphocytes % 24 % Monocytes % 5 % Eosinophils % 3 % Basophils % 0 % Neutrophils # 5.0 (1.3-7.7) k/uL Lymphocytes # 1.9 (1.0-4.8) k/uL Monocytes # 0.4 (0-1.0) k/uL Eosinophils # 0.2 (0-0.7) k/uL Basophils # 0.0 (0-0.2) k/uL PT (9.0-12.0) sec INR (<1.1) APTT (22.0-30.0) sec Sodium 135 L (137-145) mmol/L Potassium 3.5 (3.5-5.1) mmol/L Chloride 100 (98-107) mmol/L Carbon Dioxide 22 (22-30) mmol/L Anion Gap 13 mmol/L BUN 8 L (9-20) mg/dL Creatinine 0.90 (0.66-1.25) mg/dL Est GFR (MDRD) Af Amer >60 (>60 ml/min/1.73 sqM) Est GFR (MDRD) Non-Af >60 (>60 ml/min/1.73 sqM) Glucose 102 H (74-99) mg/dL Plasma Lactic Acid Hugo 2.5 H* (0.7-2.0) mmol/L Calcium 8.9 (8.4-10.2) mg/dL Total Bilirubin 0.4 (0.2-1.3) mg/dL AST 25 (17-59) U/L ALT 33 (21-72) U/L Alkaline Phosphatase 110 (38-126) U/L Total Protein 6.1 L (6.3-8.2) g/dL Albumin 3.7 (3.5-5.0) g/dL /02/21 Range/Units 23:25 WBC (3.8-10.6) k/uL RBC (4.30-5.90) m/uL Hgb (13.0-17.5) gm/dL Hct (39.0-53.0) % MCV (80.0-100.0) fL MCH (25.0-35.0) pg MCHC (31.0-37.0) g/dL RDW (11.5-15.5) % Plt Count (150-450) k/uL Neutrophils % % Lymphocytes % % Monocytes % % Eosinophils % % Basophils % % Neutrophils # (1.3-7.7) k/uL Lymphocytes # (1.0-4.8) k/uL Monocytes # (0-1.0) k/uL Eosinophils # (0-0.7) k/uL Basophils # (0-0.2) k/uL PT 10.7 (9.0-12.0) sec INR 1.1 (<1.1) APTT 26.0 (22.0-30.0) sec Sodium (137-145) mmol/L Potassium (3.5-5.1) mmol/L Chloride (98-107) mmol/L Carbon Dioxide (22-30) mmol/L Anion Gap mmol/L BUN (9-20) mg/dL Creatinine (0.66-1.25) mg/dL Est GFR (MDRD) Af Amer (>60 ml/min/1.73 sqM) Est GFR (MDRD) Non-Af (>60 ml/min/1.73 sqM) Glucose (74-99) mg/dL Plasma Lactic Acid Hugo (0.7-2.0) mmol/L Calcium (8.4-10.2) mg/dL Total Bilirubin (0.2-1.3) mg/dL AST (17-59) U/L ALT (21-72) U/L Alkaline Phosphatase (38-126) U/L Total Protein (6.3-8.2) g/dL Albumin (3.5-5.0) g/dL - EKG Data -: EKG Interpreted by Me 02/10/17 23:52 normal sinus rhythm 82 bpm, left axis deviation, no atopy, no S-T depressions or elevations, - Radiology Data Radiology results: report reviewed, image reviewed Disposition Clinical Impression: Toe fracture, right, Cellulitis of right toe, Elevated lactic acid level Disposition: ADMITTED IP TO THIS [facility] Condition: Stable Referrals: Brigido Guajardo DO [Primary Care Provider] - 1-2 days Time of Disposition: 00:53 Decision Date: 02/11/17 Decision Time: 00:53
[2017-02-10] MEDS: SODIUM CHLORIDE 0.9% 500 ML IV SCH (23:48)
[2017-02-10 23:56] LABS: Basophils % (A) 0 %; CH 32.5; Eosinophils # (A) 0.2 k/uL (0-0.7); Eosinophils % (A) 3 %; HDW 2.97; Luc # (Auto) 0.18; Luc % (Auto) 2; Lymphocytes # (A) 1.9 k/uL (1.0-4.8); Lymphocytes % (A) 24 %; MCH 32.7 pg (25.0-35.0); MCV 93.4 fL (80.0-100.0); Mean Platelet Volume 7.3; Monocytes # (A) 0.4 k/uL (0-1.0); Monocytes % (A) 5 %; Neutrophils % (A) 65 %; RBC 4.28 m/uL (4.30-5.90); RDW 15.3 % (11.5-15.5); WBC 7.7 k/uL (3.8-10.6); WBC (Perox) 7.63
[2017-02-11 00:06] LABS: INR 1.1 (<1.1); Prothrombin Time 10.7 sec (9.0-12.0)
[2017-02-11 00:07] LABS: ALT 33 U/L (21-72); AST 25 U/L (17-59); Alkaline Phosphatase 110 U/L (38-126); Anion Gap 13 mmol/L; Blood Urea Nitrogen 8 mg/dL (9-20); Calcium 8.9 mg/dL (8.4-10.2); Carbon Dioxide 22 mmol/L (22-30); Chloride 100 mmol/L (98-107); Glucose 102 mg/dL (74-99); Non-African American GFR(MDRD) >60 (>60 ml/min/1.73 sqM); Potassium 3.5 mmol/L (3.5-5.1); Sodium 135 mmol/L (137-145); Total Bilirubin 0.4 mg/dL (0.2-1.3); Total Protein 6.1 g/dL (6.3-8.2)
--- NOTE | 2017-02-11 00:37 | XR ---
EXAM: XR Right Foot Complete, 3 or More Views CLINICAL HISTORY: Reason: Pain TECHNIQUE: Frontal, lateral and oblique views of the right foot. COMPARISON: 01/20/2017 FINDINGS: Bones/joints: Transverse intra-articular fracture of the proximal phalanx of the great toe now appears minimally displaced. No acute fractures are identified. Soft tissues: Soft tissue edema is present in the great toe. No radiopaque foreign body. IMPRESSION: Transverse intra-articular fracture of the proximal phalanx of the great toe now appears minimally displaced.
[2017-02-11] MEDS ORDERED: NALOXONE 0.4 MG/ML 1 ML VIAL IV PRN (00:54)
[2017-02-11] MEDS ORDERED: ONDANSETRON 4 MG/2 ML VIAL IVP PRN (00:54)
[2017-02-11] MEDS ORDERED: IBUPROFEN 400 MG TAB PO PRN (00:54)
[2017-02-11] MEDS ORDERED: KETOROLAC 30 MG/ML 1 ML VIAL IVP PRN (00:54)
[2017-02-11] MEDS ORDERED: ACETAMINOPHEN TAB 325 MG TAB PO PRN (00:54)
[2017-02-11] MEDS ORDERED: ALPRAZolam 0.5 MG TAB PO PRN (00:56)
[2017-02-11] MEDS: SODIUM CHLORIDE 0.9% 500 ML IV SCH (01:12)
[2017-02-11] MEDS ORDERED: IV VANCOMYCIN PER PHARMACY 1 EACH MISC MISCELLANE PRN (01:22)
[2017-02-11 01:51] VITALS: BMI 36.3
[2017-02-11] MEDS: VANCOMYCIN 1,750 MG in SODIUM CHLORIDE 0.9% 250 ML IVPB SCH ×2 (03:43→18:01)
[2017-02-11] MEDS: SODIUM CHLORIDE 0.9% 1,000 ML IV SCH ×2 (03:46→11:32)
[2017-02-11 07:18] LABS: Glucose,Whole Blood 111 mg/dL (75-99)
[2017-02-11] MEDS: INSULIN LISPRO (humaLOG) 300 UNIT/3 ML VIAL SQ SCH ×4 (07:50→21:07)
[2017-02-11] MEDS: PANTOPRAZOLE 40 MG TABLET PO SCH (08:00)
[2017-02-11] MEDS: LISINOPRIL 10 MG TAB PO SCH (08:00)
[2017-02-11] MEDS: metFORMIN 500 MG TAB PO SCH ×2 (08:00→20:46)
[2017-02-11] MEDS: THIAMINE 100 MG TAB PO SCH (08:01)
[2017-02-11] MEDS: ATORVASTATIN 20 MG TAB PO SCH (08:01)
[2017-02-11] MEDS: SIMETHICONE 80 MG CHEWABLE PO SCH (08:01)
[2017-02-11] MEDS: MULTIVITAMINS, THERA 1 EACH TAB PO SCH (08:01)
[2017-02-11] MEDS: ALBUTEROL NEBULIZED 2.5 MG/3 ML INHALATION PRN ×2 (08:14→12:09)
[2017-02-11] MEDS: SYMBICORT 160-4.5 MCG INHALER INHALATION PRN ×2 (08:20→20:52)
[2017-02-11] MEDS: amLODIPine 5 MG TAB PO SCH (08:40)
[2017-02-11] MEDS: DICYCLOMINE 10 MG CAP PO SCH (08:40)
--- NOTE | 2017-02-11 08:51 | P.CNOR ---
History of Present Illness - HPI Consult date: 02/11/17 History of present illness: This is a 56-year-old male who is admitted for right great toe cellulitis and right great toe fracture. Orthopedics was consulted for further evaluation. Patient states about 4 weeks ago he had swelling and erythema to the right foot that occurred after he sat a box on his right foot. Patient states he had negative x-rays at the time of original injury. Patient states he was placed on antibiotics after this and noticed improvement in the swelling. Patient states about a week ago the swelling and erythema returned. Patient states last night he noticed increased pain to the right great toe. Patient states he has chronic neuropathy of bilateral feet and does not recall any subsequent injury of the right foot. Patient states he presented to the and was found to have a fracture of the right great toe. Patient states he has has noticed some improvement in the pain and swelling since been on IV antibiotics during this admission. Patient denies any fevers, weakness, nausea/vomiting. Review of Systems See HPI. Past Medical History Past Medical History: COPD, Diabetes Mellitus, GERD/Reflux, Hyperlipidemia, Hypertension Additional Past Medical History / Comment(s): Liver cirrhosis, IBS, Sciatica ddd neuropathy History of Any Multi-Drug Resistant Organisms: None Reported Past Surgical History: Orthopedic Surgery, Pacemaker Additional Past Surgical History / Comment(s): left foot surgery, pacemaker placed 11/09/2016 Past Anesthesia/Blood Transfusion Reactions: No Reported Reaction Type of Cardiac Device: Permanent Pacemaker Device Placement Date:: 11/08/2016 Past Psychological History: Anxiety Smoking Status: Current every day smoker Past Alcohol Use History: Occasional Past Drug Use History: None Reported - Past Family History Father History Unknown: Yes Family Medical History: No Reported History Mother History Unknown: Yes Family Medical History: Diabetes Mellitus Medications and Allergies Home Medications Medication Instructions Recorded Confirmed Type ALPRAZolam [Xanax] 0.5 mg PO DAILY PRN 10/23/14 02/10/17 History Ergocalciferol [Vitamin D2 50,000 unit PO QMONTH 10/23/14 02/10/17 History (DRISDOL)] Omeprazole [PriLOSEC] 20 mg PO AC-BRKFST 10/23/14 02/10/17 History Dicyclomine [Bentyl] 10 mg PO DAILY 06/23/16 02/10/17 History Multivitamins, Thera [Multivitamin] 1 tab PO DAILY 06/23/16 02/10/17 History Simethicone [Gas-X] 125 mg PO DAILY 06/23/16 02/10/17 History Thiamine [Vitamin B-1] 100 mg PO DAILY 06/23/16 02/10/17 History Albuterol Nebulized [Ventolin 2.5 mg INHALATION RT-QID PRN 11/09/16 02/10/17 History Nebulized] Atorvastatin [Lipitor] 20 mg PO DAILY 11/09/16 02/10/17 History metFORMIN HCL [Glucophage] 500 mg PO BID 11/09/16 02/10/17 History Budesonide-Formot 160-4.5 Mcg 2 puff INHALATION RT-BID PRN 01/23/17 02/10/17 History [Symbicort 160-4.5 Mcg Inhaler] Allergies Allergy/AdvReac Type Severity Reaction Status Date / Time No Known Allergies Allergy Verified 02/10/17 23:37 Physical Examination Patient is in no acute distress and is alert and oriented 3. There is swelling , erythema and warmth over the right great toe. Mild tenderness to palpation of the right great toe. Patient has normal range of motion of the foot and ankle. Neurovascular status is intact. Results X-rays of the right foot were reviewed showing transverse intra-articular fracture of proximal phalanx of the great toe now appears minimally displaced. Report by . - Labs Labs: Abnormal Lab Results - Last 24 Hours (Table) 02/10/17 02/10/17 02/10/17 Range/Units 23:25 23:25 23:25 RBC 4.28 L (4.30-5.90) m/uL Plt Count 146 L (150-450) k/uL Sodium 135 L (137-145) mmol/L BUN 8 L (9-20) mg/dL Glucose 102 H (74-99) mg/dL POC Glucose (mg/dL) (75-99) mg/dL Plasma Lactic Acid Hugo 2.5 H* (0.7-2.0) mmol/L Total Protein 6.1 L (6.3-8.2) g/dL 02/11/17 Range/Units 07:04 RBC (4.30-5.90) m/uL Plt Count (150-450) k/uL Sodium (137-145) mmol/L BUN (9-20) mg/dL Glucose (74-99) mg/dL POC Glucose (mg/dL) 111 H (75-99) mg/dL Plasma Lactic Acid Hugo (0.7-2.0) mmol/L Total Protein (6.3-8.2) g/dL H & H 02/10/17 Range/Units 23:25 Hgb 14.0 (13.0-17.5) gm/dL Hct 40.0 (39.0-53.0) % Coagulation 02/10/17 Range/Units 23:25 INR 1.1 (<1.1) Result Diagrams: 02/10/17 23:25 02/10/17 23:25 Assessment and Plan (1) Fracture of proximal phalanx of great toe Status: Acute (2) Toe fracture, right Status: Acute Plan: #1. Patient is to have postop shoe #2. Weightbearing as tolerated. #3. Appreciated input for medicine #4. Will follow the patient closely.
[2017-02-11 11:38] LABS: Hemoglobin A1C 5.8 % (4.2-6.1)
[2017-02-11 12:45] LABS: Glucose,Whole Blood 131 mg/dL (75-99)
[2017-02-11] MEDS ORDERED: HYDROcodone/APAP 5-325MG 1 EACH TAB PO PRN (17:01)
[2017-02-11] MEDS ORDERED: HYDROmorphone 1 MG/ML 1 ML SYRINGE IVP PRN (17:01)
[2017-02-11 17:45] LABS: Glucose,Whole Blood 125 mg/dL (75-99)
--- NOTE | 2017-02-11 18:47 | NM ---
EXAMINATION TYPE: NM bone 3 phase DATE OF EXAM: 02/11/2017 COMPARISON: NONE HISTORY: Right big toe infection Triple phase bone scintigraphy was performed following the injection of27.3 mCi Tc 99m MDP. Immediat e images and 3 hours post injection images acquired. FINDINGS: The flow study shows hyperemia of the big toe of the right foot. There is also mild hyperemia of the entire right foot compared to the left. Delayed images show increased uptake on both sides of the first MP joint of the right foot compared t o the left. There is significant asymmetric increased uptake in the proximal phalanx of the big toe r ight foot compared to the left. There is significant increased asymmetric uptake in the first metatar yudy head of the right foot compared to the left. IMPRESSION: Significant abnormal increased uptake on the delayed images on both sides of the first MP joint of th e right foot raises the possibility of osteomyelitis or septic arthritis. There is a fracture of the mid and distal portion of the proximal phalanx of the big toe right foot o n the foot x-ray of 02/11/2017. It is difficult to differentiate between infection and healing fracture /trauma on this exam.
[2017-02-11 20:41] LABS: Glucose,Whole Blood 117 mg/dL (75-99)
[2017-02-11] MEDS: DULoxetine HCL 60 MG CAPSULE.DR PO SCH (20:46)
[2017-02-11] MEDS: HEPARIN SODIUM,PORCINE 5,000 UNIT/ML 1 ML VIAL SQ SCH (21:07)
[2017-02-11] MEDS: TEMAZEPAM 15 MG CAP PO PRN (21:34)
--- NOTE | 2017-02-11 21:48 | HP ---
DATE OF SERVICE: 02/11/2017 CHIEF COMPLAINT: Pain and swelling of the right big toe. HISTORY OF PRESENT ILLNESS: This 56-year-old gentleman who was admitted with COPD as well as history of GERD, hypertension, hyperlipidemia, history of liver cirrhosis, history of irritable bowel syndrome history of, DJD, also had complete heart block. Recently patient had pacemaker implantation. Patient currently was admitted with pain and swelling of the right big toe. Apparently about 4 weeks ago, the patient and friends were lifting the base of a deck and the base actually fell on his right foot. Even though they were able to lift it up, the patient complains of pain and progressive swelling and blood blister initially and because of increasing pain and swelling, the patient came to [facility] and was admitted for further evaluation and treatment. There is no history of any fever, rigors, chills. No history of any headache, loss of consciousness, seizures. The patient also has diabetic peripheral neuropathy. The x-ray on admission showed transverse intra-articular fracture of the proximal phalanx of the right great toe. Patient was started on broad-spectrum IV antibiotics. Past medical history of COPD, diabetes mellitus, GERD, hypertension, hyperlipidemia, liver cirrhosis, IBS as well as pacemaker recently. MEDICATIONS: 1. Symbicort 160/4.5, 2 puffs b.i.d. 2. Lipitor 20 mg p.o. daily. 3. Ventolin 2.5 q.i.d. p.r.n. 4. Xanax 0.5 daily p.r.n. 5. Glucophage 500 mg p.o. b.i.d. 6. Norvasc 5 mg p.o. daily. 7. Vitamin B 100 mg p.o. daily. 8. Gas-X 120 mg p.o. daily. 9. Prilosec 20 mg a.c. breakfast. 10. Multivitamins 1 p.o. daily. 11. Prinivil 10 mg p.o. daily. 12. Drisdol 50,000 q.monthly. 13. Bentyl 10 mg p.o. daily. Allergies are none. FAMILY HISTORY: No history of heart disease or strokes in the family. SOCIAL HISTORY: History of smoking. History of occasional alcohol intake. REVIEW OF SYSTEMS: ENT: No diminishing hearing or diminished vision. CARDIOVASCULAR: As mentioned earlier. RESPIRATORY: As mentioned earlier. GI: No nausea, vomiting. : No dysuria. NERVOUS: No numbness, weakness. ALLERGY/IMMUNOLOGY: No asthma or hay fever. MUSCULOSKELETAL: As mentioned earlier. HEMATOLOGY/ONCOLOGY: No history of anemia. ENDOCRINE: As mentioned earlier. CONSTITUTIONAL: As mentioned earlier. DERMATOLOGY: Negative. RHEUMATOLOGY: Negative. PSYCHIATRY: As mentioned earlier. PHYSICAL EXAM: Patient alert and oriented x3. Pulse is 69, blood pressure is 113/63, respirations 20, temperature 90 degrees, pulse ox 94% on room air. HEENT: Conjunctivae normal. Oral mucosa moist. NECK: No jugular venous distention. No carotid bruits. No lymph node enlargement. No thyroid enlargement. CARDIOVASCULAR: S1 and S2 muffled. RESPIRATORY: Breath sounds diminished in the bases. A few rhonchi. No crackles. ABDOMEN: Soft, nontender. No mass palpable, obese. LEGS: The right foot is edematous. Significant swelling and tenderness and fluctuation present in the right big toe as well as adjacent area. Right ankle is also mild swollen. NERVOUS SYSTEM: Higher functions as mentioned. Moves all 4 limbs. Minimal sensory impairment of the legs present. LYMPHATIC: No lymphadenopathy in the neck, axillae or groins. SKIN: As mentioned earlier. LABS: WBC 7.7, platelets 740. Sodium 135. Plasma lactate is 2.5. ASSESSMENT: 1. Right big toe fracture, status post fall, rule out abscess and sepsis. 2. Chronic obstructive pulmonary disease. 3. Diabetes type 2. 4. History of gastroesophageal reflux disease. 5. Hypertension. 6. History of hyperlipidemia. 7. History of liver cirrhosis. 8. Irritable bowel syndrome. 9. History of sciatica. 10. History of diabetic peripheral neuropathy. 11. Pacemaker for complete heart block. 12. Left foot surgery. 13. History of degenerative joint disease. 14. Anxiety, not otherwise specified. 15. Ongoing nicotine dependence. 16. Severe pain. RECOMMENDATIONS AND DISCUSSION: In this 56-year-old gentleman who presented with multiple complex medical issues, we will monitor the patient closely, continue with the current medications and symptomatic treatment. Will initiate symptomatic treatment for pain, broad-spectrum IV antibiotics, Infectious Disease evaluation, cultures, bone scan. Follow closely with Orthopedic Surgery. is being planned at this time. Prognosis guarded because of multiple complex medical issues. Further recommendations to follow. A copy of this dictation will be forwarded to Dr. Guajardo, who is the primary physician. EDY
[2017-02-12] MEDS: VANCOMYCIN 1,750 MG in SODIUM CHLORIDE 0.9% 250 ML IVPB SCH ×2 (02:55→17:19)
[2017-02-12] MEDS: SODIUM CHLORIDE 0.9% 1,000 ML IV SCH ×2 (05:56→17:18)
[2017-02-12 07:09] LABS: Glucose,Whole Blood 108 mg/dL (75-99)
[2017-02-12] MEDS: INSULIN LISPRO (humaLOG) 300 UNIT/3 ML VIAL SQ SCH ×4 (07:59→20:38)
[2017-02-12] MEDS: PANTOPRAZOLE 40 MG TABLET PO SCH (08:00)
[2017-02-12] MEDS: SIMETHICONE 80 MG CHEWABLE PO SCH (08:00)
[2017-02-12] MEDS: ATORVASTATIN 20 MG TAB PO SCH (08:01)
[2017-02-12] MEDS: MULTIVITAMINS, THERA 1 EACH TAB PO SCH (08:01)
[2017-02-12] MEDS: metFORMIN 500 MG TAB PO SCH ×2 (08:01→20:39)
[2017-02-12] MEDS: DICYCLOMINE 10 MG CAP PO SCH (08:01)
[2017-02-12] MEDS: LISINOPRIL 10 MG TAB PO SCH (08:01)
[2017-02-12] MEDS: amLODIPine 5 MG TAB PO SCH (08:01)
[2017-02-12] MEDS: THIAMINE 100 MG TAB PO SCH (08:02)
[2017-02-12] MEDS: HEPARIN SODIUM,PORCINE 5,000 UNIT/ML 1 ML VIAL SQ SCH ×2 (08:02→20:39)
[2017-02-12 08:51] LABS: Basophils % (A) 1 %; CH 32.3; CHCM 33.4; Eosinophils # (A) 0.1 k/uL (0-0.7); Eosinophils % (A) 3 %; HGB 13.1 gm/dL (13.0-17.5); Luc # (Auto) 0.09; Luc % (Auto) 3; Lymphocytes # (A) 0.9 k/uL (1.0-4.8); Lymphocytes % (A) 25 %; MCHC 32.8 g/dL (31.0-37.0); MCV 97.5 fL (80.0-100.0); Macrocytosis Slight; Mean Platelet Volume 7.3; Monocytes # (A) 0.2 k/uL (0-1.0); Monocytes % (A) 6 %; Neutrophils # (A) 2.2 k/uL (1.3-7.7); Neutrophils % (A) 62 %; RBC 4.11 m/uL (4.30-5.90); RDW 15.6 % (11.5-15.5); WBC 3.6 k/uL (3.8-10.6); WBC (Perox) 3.86
[2017-02-12 09:14] LABS: Carbon Dioxide 28 mmol/L (22-30); Chloride 104 mmol/L (98-107); Glucose 105 mg/dL (74-99); Sodium 139 mmol/L (137-145)
[2017-02-12 09:15] LABS: ALT 27 U/L (21-72); AST 21 U/L (17-59); Alkaline Phosphatase 123 U/L (38-126); Anion Gap 7 mmol/L; Blood Urea Nitrogen 9 mg/dL (9-20); Calcium 8.5 mg/dL (8.4-10.2); Non-African American GFR(MDRD) >60 (>60 ml/min/1.73 sqM); Total Bilirubin 0.6 mg/dL (0.2-1.3); Total Protein 5.9 g/dL (6.3-8.2)
--- NOTE | 2017-02-12 10:39 | P.CONS ---
History of Present Illness - Reason for Consult Consult date: 02/12/17 Cellulitis - History of Present Illness Occasion male who gives history that 4 weeks ago he was working on a deck and he put some parts down on top of his toes and he developed a large blood blister on the right and the left one developed redness at the nail and he eventually loss the nail. He went to [facility] emergency center on January 20 and x-ray of the right foot showed a virtually nondisplaced fracture of the proximal phalanx right great toe. He was discharged home on Bactrim for 10 day course but patient states that he was also on antibiotics at that time for chronic bronchitis and a prednisone taper for which she completed the course. He states he was told by the ER physician that if he continued to have any problems with his right toe, start taking the second antibiotics for which the prescription for Bactrim was provided. Patient states that the blood blister popped and it seemed to heal on his right foot. Then he had sudden onset of increased swelling and pain to the right foot area he states he has chronic neuropathy in his pain is normally a #3 bilaterally but the right foot became a #9 out of 10. He also thinks he had a low-grade fever for 1-2 days prior to him coming in and also complaining of backache on the right side. Patient came into [facility] emergency center on February 10. X- ray showed a transverse intra-articular fracture the proximal phalanx of the great toe minimally displaced. He was started on vancomycin for cellulitis of the right foot and admitted to the [facility] floor. He has been seen by orthopedics with recommendations to weight bear as tolerated and postop shoe to be obtained. A bone scan was ordered which showed possible osteomyelitis or septic arthritis at the first MP joint on the right foot. Difficult to differentiate between infection and healing fracture or trauma. Patient does state that the redness and swelling to his right foot is much improved. Blood culture is no growth at 24 hour. He has been afebrile since admission and white count is 7.7. Initial lactic acid was 2.5 and repeat 1.3. Albumin 3.7. Regarding patient's diabetes, he states in October of this year his hemoglobin A1c was 6.7 and he was started on metformin. He quit drinking pop and juice and sugar and has lost 40 pounds in 2 months and his repeat hemoglobin A1c was 5.5. He also has history of alcohol abuse and was diagnosed with liver cirrhosis 6 years ago for which he has stopped drinking altogether with normalization of his liver function tests. Patient continues to smoke and was up to 3 packs per day and is currently down to less than 1 pack per day. He has been smoking for 40 years. Discussed need for him to stop smoking due to risk of peripheral vascular disease. Review of Systems All systems: negative Constitutional: Reports chills, Reports fatigue, Reports fever Eyes: denies blurred vision, denies pain Ears, nose, mouth and throat: Denies headache, Denies sore throat Cardiovascular: Denies chest pain, Denies shortness of breath Respiratory: Denies cough Gastrointestinal: Denies abdominal pain, Denies diarrhea, Denies nausea, Denies vomiting Musculoskeletal: Denies myalgias Integumentary: Reports darkening of skin, Reports wounds, Denies pruritus, Denies rash Neurological: Denies numbness, Denies weakness Psychiatric: Denies anxiety, Denies depression Endocrine: Denies fatigue, Denies weight change Past Medical History Past Medical History: COPD, Diabetes Mellitus, GERD/Reflux, Hyperlipidemia, Hypertension Additional Past Medical History / Comment(s): Liver cirrhosis, IBS, Sciatica ddd neuropathy, diabetic neuropathy History of Any Multi-Drug Resistant Organisms: None Reported Past Surgical History: Orthopedic Surgery, Pacemaker Additional Past Surgical History / Comment(s): left foot surgery, pacemaker placed 11/09/2016 Past Anesthesia/Blood Transfusion Reactions: No Reported Reaction Type of Cardiac Device: Permanent Pacemaker Device Placement Date:: 11/08/2016 Past Psychological History: Anxiety Smoking Status: Current every day smoker Past Alcohol Use History: Occasional Additional Past Alcohol Use History / Comment(s): Patient was a smoker of 3 packs per day and has been smoking for 40 years. He has been trying to quit smoking for the past 1 year and is currently down to less than a pack a day. Patient does roll his own cigarettes. He does have history of alcohol abuse and quit drinking 6 years ago due to diagnosis of liver cirrhosis. He lives at home with his . There are no pets in the home. No service. Patient is currently living in a camper in the [facility] with planned to camp in [place] during the summer and either [place] or [place] in in the rodriguez. Past Drug Use History: None Reported - Past Family History Father History Unknown: Yes Family Medical History: No Reported History Mother History Unknown: Yes Family Medical History: Diabetes Mellitus Medications and Allergies Home Medications Medication Instructions Recorded Confirmed Type ALPRAZolam [Xanax] 0.5 mg PO DAILY PRN 10/23/14 02/10/17 History Ergocalciferol [Vitamin D2 50,000 unit PO QMONTH 10/23/14 02/10/17 History (DRISDOL)] Omeprazole [PriLOSEC] 20 mg PO AC-BRKFST 10/23/14 02/10/17 History Dicyclomine [Bentyl] 10 mg PO DAILY 06/23/16 02/10/17 History Multivitamins, Thera [Multivitamin] 1 tab PO DAILY 06/23/16 02/10/17 History Simethicone [Gas-X] 125 mg PO DAILY 06/23/16 02/10/17 History Thiamine [Vitamin B-1] 100 mg PO DAILY 06/23/16 02/10/17 History Albuterol Nebulized [Ventolin 2.5 mg INHALATION RT-QID PRN 11/09/16 02/10/17 History Nebulized] Atorvastatin [Lipitor] 20 mg PO DAILY 11/09/16 02/10/17 History metFORMIN HCL [Glucophage] 500 mg PO BID 11/09/16 02/10/17 History Budesonide-Formot 160-4.5 Mcg 2 puff INHALATION RT-BID PRN 01/23/17 02/10/17 History [Symbicort 160-4.5 Mcg Inhaler] DULoxetine HCL [Cymbalta] 60 mg PO HS 02/11/17 02/11/17 History Allergies Allergy/AdvReac Type Severity Reaction Status Date / Time No Known Allergies Allergy Verified 02/10/17 23:37 Physical Exam Vitals: Vital Signs Temp Pulse Pulse Resp BP Pulse Ox 02/12/17 07:00 97.8 F 70 20 143/97 97 02/11/17 22:00 97.9 F 72 16 135/87 97 02/11/17 14:54 98.0 F 69 20 113/66 95 02/11/17 12:26 80 02/11/17 12:09 78 Intake and Output 02/11/17 02/12/17 02/12/17 22:59 06:59 14:59 Intake Total 150 Balance 150 Intake: Intake, IV Titration 150 Amount Sodium Chloride 0.9% 1, 150 000 ml @ 50 mls/hr IV . Q20H [facility] Rx#:[id number] Other: Voiding Method Toilet Toilet Toilet # Voids 1 Gen: This is a 56-year-old male. He is resting in bed appears to be in no acute distress. No respiratory distress noted. HEENT: Head is atraumatic, normocephalic. Pupils equal, round. Sclerae is anicteric. Dentition is in poor order. No thrush noted. NECK: Supple. No JVD. No lymphadenopathy. No thyromegaly. LUNGS: Scattered expiratory wheeze. No intercostal retractions. HEART: Regular rate and rhythm. No murmur. ABDOMEN: Soft. Bowel sounds are present. No masses. No tenderness. EXTREMITIES: No pedal edema. No calf tenderness. Mild erythema and edema to the right foot from the first digit extending to mid forefoot. Dorsalis pedis is +2 bilaterally. Toenail is nonexistent on the left great toe. NEUROLOGICAL: Patient is awake, alert and oriented x3. Cranial nerves 2 through 12 are grossly intact. Results Results: Laboratory Results WBC 3.6 k/uL (3.8-10.6) L 02/12/17 07:43 RBC 4.11 m/uL (4.30-5.90) L 02/12/17 07:43 Hgb 13.1 gm/dL (13.0-17.5) 02/12/17 07:43 Hct 40.0 % (39.0-53.0) 02/12/17 07:43 MCV 97.5 fL (80.0-100.0) 02/12/17 07:43 MCH 32.0 pg (25.0-35.0) 02/12/17 07:43 MCHC 32.8 g/dL (31.0-37.0) 02/12/17 07:43 RDW 15.6 % (11.5-15.5) H 02/12/17 07:43 Plt Count 113 k/uL (150-450) L 02/12/17 07:43 Neutrophils % 62 % 02/12/17 07:43 Lymphocytes % 25 % 02/12/17 07:43 Monocytes % 6 % 02/12/17 07:43 Eosinophils % 3 % 02/12/17 07:43 Basophils % 1 % 02/12/17 07:43 Neutrophils # 2.2 k/uL (1.3-7.7) 02/12/17 07:43 Lymphocytes # 0.9 k/uL (1.0-4.8) L 02/12/17 07:43 Monocytes # 0.2 k/uL (0-1.0) 02/12/17 07:43 Eosinophils # 0.1 k/uL (0-0.7) 02/12/17 07:43 Basophils # 0.0 k/uL (0-0.2) 02/12/17 07:43 Macrocytosis Slight 02/12/17 07:43 PT 10.7 sec (9.0-12.0) 02/10/17 23:25 INR 1.1 (<1.1) 02/10/17 23:25 APTT 26.0 sec (22.0-30.0) 02/10/17 23:25 Sodium 139 mmol/L (137-145) 02/12/17 07:43 Potassium 4.0 mmol/L (3.5-5.1) 02/12/17 07:43 Chloride 104 mmol/L (98-107) 02/12/17 07:43 Carbon Dioxide 28 mmol/L (22-30) 02/12/17 07:43 Anion Gap 7 mmol/L 02/12/17 07:43 BUN 9 mg/dL (9-20) 02/12/17 07:43 Creatinine 0.78 mg/dL (0.66-1.25) 02/12/17 07:43 Est GFR (MDRD) Af Amer >60 (>60 ml/min/1.73 sqM) 02/12/17 07:43 Est GFR (MDRD) Non-Af >60 (>60 ml/min/1.73 sqM) 02/12/17 07:43 Glucose 105 mg/dL (74-99) H 02/12/17 07:43 POC Glucose (mg/dL) 108 mg/dL (75-99) H 02/12/17 07:07 POC Glu Senior Biostatistician/Group Leader ID Lynne Khan 02/12/17 07:[address] Glu mg/dL 120 mg/dL 02/10/17 23:25 Hemoglobin A1c 5.8 % (4.2-6.1) 02/10/17 23:25 Plasma Lactic Acid Hugo 1.3 mmol/L (0.7-2.0) 02/11/17 03:21 Uric Acid 6.7 mg/dL (3.5-8.5) 02/10/17 23:25 Calcium 8.5 mg/dL (8.4-10.2) 02/12/17 07:43 Total Bilirubin 0.6 mg/dL (0.2-1.3) 02/12/17 07:43 AST 21 U/L (17-59) 02/12/17 07:43 ALT 27 U/L (21-72) 02/12/17 07:43 Alkaline Phosphatase 123 U/L (38-126) 02/12/17 07:43 Total Protein 5.9 g/dL (6.3-8.2) L 02/12/17 07:43 Albumin 3.2 g/dL (3.5-5.0) L 02/12/17 07:43 CBC & Chem 7: 02/12/17 07:43 02/12/17 07:43 Labs: Abnormal Lab Results - Last 24 Hours (Table) 02/11/17 02/11/17 02/11/17 Range/Units 12:42 17:42 20:39 WBC (3.8-10.6) k/uL RBC (4.30-5.90) m/uL RDW (11.5-15.5) % Plt Count (150-450) k/uL Lymphocytes # (1.0-4.8) k/uL Glucose (74-99) mg/dL POC Glucose (mg/dL) 131 H 125 H 117 H (75-99) mg/dL Total Protein (6.3-8.2) g/dL Albumin (3.5-5.0) g/dL 02/12/17 02/12/17 02/12/17 Range/Units 07:07 07:43 07:43 WBC 3.6 L (3.8-10.6) k/uL RBC 4.11 L (4.30-5.90) m/uL RDW 15.6 H (11.5-15.5) % Plt Count 113 L (150-450) k/uL Lymphocytes # 0.9 L (1.0-4.8) k/uL Glucose 105 H (74-99) mg/dL POC Glucose (mg/dL) 108 H (75-99) mg/dL Total Protein 5.9 L (6.3-8.2) g/dL Albumin 3.2 L (3.5-5.0) g/dL Microbiology - Last 24 Hours (Table) 02/10/17 23:25 Blood Culture - Preliminary Blood No Growth after 24 hours Assessment and Plan Plan: This is a 56-year-old male who presented to the hospital with cellulitis to the right foot with a transverse intra-articular fracture of the proximal phalanx which is minimally displaced. Bone scan was done which is questionable for osteomyelitis or septic arthritis however this is going to be positive with the recent trauma and fracture. He is on vancomycin with improvement of the cellulitis. Patient will be provided a prescription for Bactrim DS 3 times daily for 10 days. Continue supportive care. Further recommendations as patient progresses. The above dictated assessment and findings were discussed with Dr. Lyon. The impression and plan of care have been directed as dictated. Christina Wise nurse practitioner acting as scribe for Dr. Lyon.
--- NOTE | 2017-02-12 11:21 | P.PN ---
Subjective Principal diagnosis: Fracture of proximal phalanx of right great toe, Cellulitis This is a well appearing 56yo male who is admitted for fracture of the right great toe and cellulitis. Patient denies pain today. Patient states he has been up and walking but finds it difficult to walk with the post op shoe. Patient states he has noticed improvement in the redness surrounding his right great toe. Patient has no new complaints today. Objective - Vital Signs Vital signs: Vital Signs Temp 97.8 F 02/12/17 07:00 Pulse 70 02/12/17 07:00 Resp 20 02/12/17 07:00 BP 143/97 02/12/17 07:00 Pulse Ox 97 02/12/17 07:00 Intake & Output 02/11/17 02/12/17 02/12/17 18:59 06:59 18:59 Intake Total 600 150 Balance 600 150 Intake: Intake, IV Titration 150 Amount Sodium Chloride 0.9% 1, 150 000 ml @ 50 mls/hr IV . Q20H [facility] Rx#:[id number] Oral 600 Other: Voiding Method Toilet Toilet Toilet # Voids 1 1 - Exam Patient is in no acute distress and is alert and oriented x3. There is mild erythema and swelling surrounding the right great toe that has improved since yesterdays exam. There is no tenderness to palpation. Calf is soft and nontender. Neurovascular status is intact. Full foot and ankle motion. - Labs CBC & Chem 7: 02/12/17 07:43 02/12/17 07:43 Labs: Abnormal Lab Results - Last 24 Hours (Table) 02/11/17 02/11/17 02/11/17 Range/Units 12:42 17:42 20:39 WBC (3.8-10.6) k/uL RBC (4.30-5.90) m/uL RDW (11.5-15.5) % Plt Count (150-450) k/uL Lymphocytes # (1.0-4.8) k/uL Glucose (74-99) mg/dL POC Glucose (mg/dL) 131 H 125 H 117 H (75-99) mg/dL Total Protein (6.3-8.2) g/dL Albumin (3.5-5.0) g/dL 02/12/17 02/12/17 02/12/17 Range/Units 07:07 07:43 07:43 WBC 3.6 L (3.8-10.6) k/uL RBC 4.11 L (4.30-5.90) m/uL RDW 15.6 H (11.5-15.5) % Plt Count 113 L (150-450) k/uL Lymphocytes # 0.9 L (1.0-4.8) k/uL Glucose 105 H (74-99) mg/dL POC Glucose (mg/dL) 108 H (75-99) mg/dL Total Protein 5.9 L (6.3-8.2) g/dL Albumin 3.2 L (3.5-5.0) g/dL Microbiology - Last 24 Hours (Table) 02/10/17 23:25 Blood Culture - Preliminary Blood No Growth after 24 hours Assessment and Plan (1) Fracture of proximal phalanx of great toe Status: Acute (2) Toe fracture, right Status: Acute Plan: #1. Patient is to have walking boot, patient refuses post op shoe. #2. Weightbearing as tolerated. #3. Appreciate input from medicine #4. Will follow the patient closely.
[2017-02-12] MEDS: SYMBICORT 160-4.5 MCG INHALER INHALATION PRN (11:25)
[2017-02-12 11:56] LABS: Glucose,Whole Blood 122 mg/dL (75-99)
[2017-02-12 17:38] LABS: Glucose,Whole Blood 110 mg/dL (75-99)
[2017-02-12 20:03] LABS: Glucose,Whole Blood 121 mg/dL (75-99)
[2017-02-12] MEDS: DULoxetine HCL 60 MG CAPSULE.DR PO SCH (20:39)
--- NOTE | 2017-02-12 21:07 | P.CON ---
Consult Note - . Consult date: 02/12/17 Assessment/Plan:: Occasion male who gives history that 4 weeks ago he was working on a deck and he put some parts down on top of his toes and he developed a large blood blister on the right and the left one developed redness at the nail and he eventually loss the nail. He went to [facility] emergency center on January 20 and x-ray of the right foot showed a virtually nondisplaced fracture of the proximal phalanx right great toe. He was discharged home on Bactrim for 10 day course but patient states that he was also on antibiotics at that time for chronic bronchitis and a prednisone taper for which she completed the course. He states he was told by the ER physician that if he continued to have any problems with his right toe, start taking the second antibiotics for which the prescription for Bactrim was provided. Patient states that the blood blister popped and it seemed to heal on his right foot. Then he had sudden onset of increased swelling and pain to the right foot area he states he has chronic neuropathy in his pain is normally a #3 bilaterally but the right foot became a #9 out of 10. He also thinks he had a low-grade fever for 1-2 days prior to him coming in and also complaining of backache on the right side. Patient came into [facility] emergency center on February 10. X- ray showed a transverse intra-articular fracture the proximal phalanx of the great toe minimally displaced. He was started on vancomycin for cellulitis of the right foot and admitted to the [facility] floor. He has been seen by orthopedics with recommendations to weight bear as tolerated and postop shoe to be obtained. A bone scan was ordered which showed possible osteomyelitis or septic arthritis at the first MP joint on the right foot. Difficult to differentiate between infection and healing fracture or trauma. Patient does state that the redness and swelling to his right foot is much improved. Blood culture is no growth at 24 hour. He has been afebrile since admission and white count is 7.7. Initial lactic acid was 2.5 and repeat 1.3. Albumin 3.7. Regarding patient's diabetes, he states in October of this year his hemoglobin A1c was 6.7 and he was started on metformin. He quit drinking pop and juice and sugar and has lost 40 pounds in 2 months and his repeat hemoglobin A1c was 5.5. He also has history of alcohol abuse and was diagnosed with liver cirrhosis 6 years ago for which he has stopped drinking altogether with normalization of his liver function tests. Patient continues to smoke and was up to 3 packs per day and is currently down to less than 1 pack per day. He has been smoking for 40 years. Discussed need for him to stop smoking due to risk of peripheral vascular disease. Please see the consult note is dictated by nurse practitioner Mrs. Christina Wise. Pleasant gentleman who had trauma to his feet with resulting fracture to the right great toe. Developed a significant secondary cellulitis. Is now had marked improvement with elevation, antibiotics and immobilization. Bone scan was positive but expected with the known fracture at the site. With the fracture has a poor predictive value of possible underlying infection. With a marked clinical improvement it is unlikely that he has a deep infection at that site. The plan and conversion to oral antibiotic therapy with Bactrim 1 double strength 3 times per day giving his size. Follow up with his primary care physician shortly after discharge and follow in the office if there is any further needs. I agree with evaluation, assessment and plan as dictated by nurse practitioner Mrs. Christina Wise.
[2017-02-12] MEDS: TEMAZEPAM 15 MG CAP PO PRN (23:12)
[2017-02-13] MEDS ORDERED: VANCOMYCIN TROUGH DUE 1 EACH MISC MISCELLANE ONE (02:00)
[2017-02-13 02:33] LABS: Basophils % (A) 1 %; CH 32.3; CHCM 33.6; Eosinophils # (A) 0.2 k/uL (0-0.7); Eosinophils % (A) 4 %; HCT 40.7 % (39.0-53.0); HDW 2.79; HGB 13.4 gm/dL (13.0-17.5); Luc # (Auto) 0.12; Luc % (Auto) 3; Lymphocytes # (A) 0.9 k/uL (1.0-4.8); Lymphocytes % (A) 23 %; MCH 31.9 pg (25.0-35.0); MCV 96.7 fL (80.0-100.0); Mean Platelet Volume 7.7; Monocytes # (A) 0.2 k/uL (0-1.0); Monocytes % (A) 6 %; Neutrophils # (A) 2.5 k/uL (1.3-7.7); Neutrophils % (A) 64 %; RDW 15.6 % (11.5-15.5); WBC (Perox) 4.15
[2017-02-13 02:55] LABS: Anion Gap 8 mmol/L; Blood Urea Nitrogen 13 mg/dL (9-20); Carbon Dioxide 27 mmol/L (22-30); Chloride 103 mmol/L (98-107); Glucose 124 mg/dL (74-99); Non-African American GFR(MDRD) >60 (>60 ml/min/1.73 sqM); Potassium 3.7 mmol/L (3.5-5.1); Sodium 138 mmol/L (137-145)
[2017-02-13] MEDS: VANCOMYCIN 1,750 MG in SODIUM CHLORIDE 0.9% 250 ML IVPB SCH (04:04)
--- NOTE | 2017-02-13 06:39 | PN ---
DATE OF SERVICE: 02/12/2017 This 56-year-old gentleman who was admitted with significant pain and swelling of the right big toe also had intra-articular fracture of the proximal phalanx of the right big toe. The patient also has cellulitis. The patient is on IV antibiotics. Cultures are negative at this time. Multiple consultants, orthopedics and Infectious Disease following the patient closely. White count is 3.6 and platelets 113. Bone scan is indeterminate. Orthopedics is planning a walking boot. The seems like lax at this time. Otherwise, patient will be closely monitored. PAST MEDICAL HISTORY: Reviewed. REVIEW OF SYSTEMS: CARDIOVASCULAR: No angina. RESPIRATORY: As mentioned earlier. GI: As mentioned earlier. : No dysuria. NERVOUS SYSTEM: No numbness or weakness. Current medications are reviewed and include: 1. Tylenol 650 q.6 p.r.n. 2. [place] 5 mg q.6 p.r.n. 3. Ventolin 2.5 q.i.d. 4. Xanax 0.5 daily. 5. Norvasc 5 mg daily. 6. Lipitor 20 mg daily. 7. Symbicort 160/4.5 two puffs b.i.d. p.r.n. 8. Bentyl 10 mg p.o. daily. 9. Cymbalta 60 mg q.h.s. 10. Vitamin D2. 11. Heparin 5000 subcu b.i.d. 12. Dilaudid 0.5 mg q.6 p.r.n. 13. Motrin 400 mg q.6 p.r.n. 14. Toradol 30 mg IV q.6. 15. Zestril 10 mg daily. 16. Glucophage. 17. Multivitamin. 18. Narcan. 19. Zofran. 20. Protonix. 21. Mylicon. 22. Restoril. 23. Vitamin B1. 24. Vancomycin mg. PHYSICAL EXAMINATION: The patient is alert and oriented x3. Pulse is 71, blood pressure 129/90, respirations 20, temperature 8 degrees, pulse ox 95% on room air. HEENT: Conjunctivae normal. Oral mucosa moist. NECK: No jugular venous distention. No carotid bruit. No lymph node enlargement. CARDIOVASCULAR: S1 and S2, muffled. No S3, no S4. RESPIRATORY: Breath sounds diminished at the bases. No rhonchi, no crackles. ABDOMEN: Soft, obese, nontender. No mass palpable. No hepatosplenomegaly. LEGS: Right leg swelling and tenderness and significant erythema of the right big toe also present. Movement extremely painful. NERVOUS SYSTEM: Higher function as mentioned. Moves all 4 limbs. No focal motor deficit. LYMPHATICS: No lymphadenopathy of neck, axillae or groin. SKIN: No ulcers, rashes or bleeding. Labs are at this time show WBC 3.6, hemoglobin 13.1, platelets 113. Glucose 105. ASSESSMENT: 1. Right big toe proximal phalanx intra-articular fracture, status post fall with overlying significant cellulitis and severe pain. 2. Gait dysfunction secondary to #1. 3. Chronic obstructive pulmonary disease. 4. Diabetes mellitus type 2. 5. History of gastroesophageal reflux disease. 6. Hypertension, essential. 7. Hyperlipidemia. 8. History of liver cirrhosis. 9. History of irritable bowel syndrome. 10. History of sciatica. 11. History of diabetic peripheral neuropathy. 12. History of pacemaker for complete heart block. 13. Left foot surgery. 14. History of degenerative joint disease. 15. Anxiety, not otherwise specified. 16. Ongoing nicotine dependence. 17. FULL CODE. RECOMMENDATIONS AND DISCUSSION: This 56-year-old gentleman who presented with the multiple complex medical issues, we will monitor the patient closely. Continue the current medications. Continue symptomatic treatment. Otherwise, at this time I would recommend pain medications, antibiotics are being instituted. There is no suspicion of osteomyelitis. Patient might require only p.o. antibiotics. Otherwise, osteomyelitis suspicion will constitute inserting PICC line and continue IV antibiotics also. The prognosis is guarded. The patient has multiple complex medical issues as discussed above. Boot has been adjusted by orthopedic surgery. Further recommendations to follow. Prognosis guarded. Patient understands and agrees. [facility]
[2017-02-13] MEDS: SYMBICORT 160-4.5 MCG INHALER INHALATION PRN (07:15)
[2017-02-13 07:38] LABS: Glucose,Whole Blood 115 mg/dL (75-99)
--- NOTE | 2017-02-13 08:21 | P.PN ---
Subjective Principal diagnosis: Fracture of proximal phalanx of right great toe, Cellulitis This is a well appearing 56yo male who is admitted for fracture of the right great toe and cellulitis. Patient denies any pain today. Patient states he has been up and walking with the boot and this is much easier than the postop shoe. Patient has no new complaints today. Objective - Vital Signs Vital signs: Vital Signs Temp 99.8 F H 02/12/17 23:00 Pulse 83 02/12/17 23:00 Resp 16 02/12/17 23:00 BP 126/92 02/12/17 23:00 Pulse Ox 95 02/12/17 23:00 Intake & Output 02/12/17 02/13/17 02/13/17 18:59 06:59 18:59 Intake Total 990 Balance 990 Intake: IV 400 Sodium Chloride 0.9% 1, 400 000 ml @ 50 mls/hr IV . Q20H [facility] Rx#:[id number] Oral 590 Other: Voiding Method Toilet Toilet # Voids 2 2 - Exam Patient is in no acute distress and is alert and oriented x3. There is mild erythema and swelling surrounding the right great toe. There is no tenderness to palpation. Calf is soft and nontender. Neurovascular status is intact. Full foot and ankle motion. - Labs CBC & Chem 7: 02/13/17 02:24 02/13/17 02:24 Labs: Abnormal Lab Results - Last 24 Hours (Table) 02/12/17 02/12/17 02/12/17 Range/Units 07:43 07:43 11:50 WBC 3.6 L (3.8-10.6) k/uL RBC 4.11 L (4.30-5.90) m/uL RDW 15.6 H (11.5-15.5) % Plt Count 113 L (150-450) k/uL Lymphocytes # 0.9 L (1.0-4.8) k/uL Glucose 105 H (74-99) mg/dL POC Glucose (mg/dL) 122 H (75-99) mg/dL Total Protein 5.9 L (6.3-8.2) g/dL Albumin 3.2 L (3.5-5.0) g/dL 02/12/17 02/12/17 02/13/17 Range/Units 17:35 20:01 02:24 WBC (3.8-10.6) k/uL RBC 4.20 L (4.30-5.90) m/uL RDW 15.6 H (11.5-15.5) % Plt Count 117 L (150-450) k/uL Lymphocytes # 0.9 L (1.0-4.8) k/uL Glucose (74-99) mg/dL POC Glucose (mg/dL) 110 H 121 H (75-99) mg/dL Total Protein (6.3-8.2) g/dL Albumin (3.5-5.0) g/dL 02/13/17 02/13/17 Range/Units 02:24 07:19 WBC (3.8-10.6) k/uL RBC (4.30-5.90) m/uL RDW (11.5-15.5) % Plt Count (150-450) k/uL Lymphocytes # (1.0-4.8) k/uL Glucose 124 H (74-99) mg/dL POC Glucose (mg/dL) 115 H (75-99) mg/dL Total Protein (6.3-8.2) g/dL Albumin (3.5-5.0) g/dL Microbiology - Last 24 Hours (Table) 02/10/17 23:25 Blood Culture - Preliminary Blood No Growth after 48 hours Assessment and Plan (1) Fracture of proximal phalanx of great toe Status: Acute (2) Toe fracture, right Status: Acute Plan: #1. Continue equalizer boot. #2. Weightbearing as tolerated with equalizer boot. #3. Appreciate input from medicine #4. Patient should follow-up in one week with Dr. Brigido Sen.
[2017-02-13 08:33] VITALS: BP 136/98; PULSE 70; RESP 20; TEMP 97.5
[2017-02-13] MEDS: INSULIN LISPRO (humaLOG) 300 UNIT/3 ML VIAL SQ SCH (08:36)
[2017-02-13] MEDS: ATORVASTATIN 20 MG TAB PO SCH (09:42)
[2017-02-13] MEDS: PANTOPRAZOLE 40 MG TABLET PO SCH (09:42)
[2017-02-13] MEDS: THIAMINE 100 MG TAB PO SCH (09:42)
[2017-02-13] MEDS: amLODIPine 5 MG TAB PO SCH (09:42)
[2017-02-13] MEDS: DICYCLOMINE 10 MG CAP PO SCH (09:42)
[2017-02-13] MEDS: metFORMIN 500 MG TAB PO SCH (09:42)
[2017-02-13] MEDS: MULTIVITAMINS, THERA 1 EACH TAB PO SCH (09:42)
[2017-02-13] MEDS: LISINOPRIL 10 MG TAB PO SCH (09:42)
[2017-02-13] MEDS: SIMETHICONE 80 MG CHEWABLE PO SCH (09:42)
[2017-02-13 11:32] LABS: Glucose,Whole Blood 123 mg/dL (75-99)
[2017-02-13] MEDS: HEPARIN SODIUM,PORCINE 5,000 UNIT/ML 1 ML VIAL SQ SCH (12:10)
--- NOTE | 2017-02-13 13:03 | P.PN ---
Subjective Principal diagnosis: Cellulitis right great toe Occasion male who gives history that 4 weeks ago he was working on a deck and he put some parts down on top of his toes and he developed a large blood blister on the right and the left one developed redness at the nail and he eventually loss the nail. He went to [facility] emergency center on January 20 and x-ray of the right foot showed a virtually nondisplaced fracture of the proximal phalanx right great toe. He was discharged home on Bactrim for 10 day course but patient states that he was also on antibiotics at that time for chronic bronchitis and a prednisone taper for which she completed the course. He states he was told by the ER physician that if he continued to have any problems with his right toe, start taking the second antibiotics for which the prescription for Bactrim was provided. Patient states that the blood blister popped and it seemed to heal on his right foot. Then he had sudden onset of increased swelling and pain to the right foot area he states he has chronic neuropathy in his pain is normally a #3 bilaterally but the right foot became a #9 out of 10. He also thinks he had a low-grade fever for 1-2 days prior to him coming in and also complaining of backache on the right side. Patient came into [facility] emergency center on February 10. X- ray showed a transverse intra-articular fracture the proximal phalanx of the great toe minimally displaced. He was started on vancomycin for cellulitis of the right foot and admitted to the [facility] floor. He has been seen by orthopedics with recommendations to weight bear as tolerated and postop shoe to be obtained. A bone scan was ordered which showed possible osteomyelitis or septic arthritis at the first MP joint on the right foot. Difficult to differentiate between infection and healing fracture or trauma. Patient does state that the redness and swelling to his right foot is much improved. Blood culture is no growth at 24 hour. He has been afebrile since admission and white count is 7.7. Initial lactic acid was 2.5 and repeat 1.3. Albumin 3.7. Regarding patient's diabetes, he states in October of this year his hemoglobin A1c was 6.7 and he was started on metformin. He quit drinking pop and juice and sugar and has lost 40 pounds in 2 months and his repeat hemoglobin A1c was 5.5. He also has history of alcohol abuse and was diagnosed with liver cirrhosis 6 years ago for which he has stopped drinking altogether with normalization of his liver function tests. Patient continues to smoke and was up to 3 packs per day and is currently down to less than 1 pack per day. He has been smoking for 40 years. Discussed need for him to stop smoking due to risk of peripheral vascular disease. Patient feeling better today. Pain is down to about his baseline. No fever chills rigors or sweats. No other new complaints. Objective - Vital Signs Vital signs: Vital Signs Temp 97.5 F L 02/13/17 07:00 Pulse 70 02/13/17 08:00 Resp 20 02/13/17 08:00 BP 136/98 02/13/17 07:00 Pulse Ox 96 02/13/17 07:00 Intake & Output 02/12/17 02/13/17 02/13/17 18:59 06:59 18:59 Intake Total 990 Balance 990 Intake: IV 400 Sodium Chloride 0.9% 1, 400 000 ml @ 50 mls/hr IV . Q20H LYDIA Rx#:[id number] Oral 590 Other: Voiding Method Toilet Toilet Toilet # Voids 2 2 - Exam Gen: This is a 56-year-old male. He is resting in bed appears to be in no acute distress. No respiratory distress noted. HEENT: Head is atraumatic, normocephalic. Pupils equal, round. Sclerae is anicteric. Dentition is in poor order. No thrush noted. NECK: Supple. No JVD. No lymphadenopathy. No thyromegaly. LUNGS: Scattered expiratory wheeze. No intercostal retractions. HEART: Regular rate and rhythm. No murmur. ABDOMEN: Soft. Bowel sounds are present. No masses. No tenderness. EXTREMITIES: No pedal edema. No calf tenderness. Mild erythema and edema to the right foot from the first digit extending to mid forefoot. Dorsalis pedis is +2 bilaterally. Toenail is nonexistent on the left great toe. NEUROLOGICAL: Patient is awake, alert and oriented x3. - Labs CBC & Chem 7: 02/13/17 02:24 02/13/17 02:24 Labs: Abnormal Lab Results - Last 24 Hours (Table) 06/04/2302/12/17 02/13/17 Range/Units 17:35 20:01 02:24 RBC 4.20 L (4.30-5.90) m/uL RDW 15.6 H (11.5-15.5) % Plt Count 117 L (150-450) k/uL Lymphocytes # 0.9 L (1.0-4.8) k/uL Glucose (74-99) mg/dL POC Glucose (mg/dL) 110 H 121 H (75-99) mg/dL 02/13/17 02/13/17 02/13/17 Range/Units 02:24 07:19 11:28 RBC (4.30-5.90) m/uL RDW (11.5-15.5) % Plt Count (150-450) k/uL Lymphocytes # (1.0-4.8) k/uL Glucose 124 H (74-99) mg/dL POC Glucose (mg/dL) 115 H 123 H (75-99) mg/dL Microbiology - Last 24 Hours (Table) 02/10/17 23:25 Blood Culture - Preliminary Blood No Growth after 48 hours Laboratory Results WBC 4.0 k/uL (3.8-10.6) 02/13/17 02:24 RBC 4.20 m/uL (4.30-5.90) L 02/13/17 02:24 Hgb 13.4 gm/dL (13.0-17.5) 02/13/17 02:24 Hct 40.7 % (39.0-53.0) 02/13/17 02:24 MCV 96.7 fL (80.0-100.0) 02/13/17 02:24 MCH 31.9 pg (25.0-35.0) 02/13/17 02:24 MCHC 33.0 g/dL (31.0-37.0) 02/13/17 02:24 RDW 15.6 % (11.5-15.5) H 02/13/17 02:24 Plt Count 117 k/uL (150-450) L 02/13/17 02:24 Neutrophils % 64 % 02/13/17 02:24 Lymphocytes % 23 % 02/13/17 02:24 Monocytes % 6 % 02/13/17 02:24 Eosinophils % 4 % 02/13/17 02:24 Basophils % 1 % 02/13/17 02:24 Neutrophils # 2.5 k/uL (1.3-7.7) 02/13/17 02:24 Lymphocytes # 0.9 k/uL (1.0-4.8) L 02/13/17 02:24 Monocytes # 0.2 k/uL (0-1.0) 02/13/17 02:24 Eosinophils # 0.2 k/uL (0-0.7) 02/13/17 02:24 Basophils # 0.0 k/uL (0-0.2) 02/13/17 02:24 Macrocytosis Slight 02/12/17 07:43 PT 10.7 sec (9.0-12.0) 02/10/17 23:25 INR 1.1 (<1.1) 02/10/17 23:25 APTT 26.0 sec (22.0-30.0) 02/10/17 23:25 Sodium 138 mmol/L (137-145) 02/13/17 02:24 Potassium 3.7 mmol/L (3.5-5.1) 02/13/17 02:24 Chloride 103 mmol/L (98-107) 02/13/17 02:24 Carbon Dioxide 27 mmol/L (22-30) 02/13/17 02:24 Anion Gap 8 mmol/L 02/13/17 02:24 BUN 13 mg/dL (9-20) 02/13/17 02:24 Creatinine 0.90 mg/dL (0.66-1.25) 02/13/17 02:24 Est GFR (MDRD) Af Amer >60 (>60 ml/min/1.73 sqM) 02/13/17 02:24 Est GFR (MDRD) Non-Af >60 (>60 ml/min/1.73 sqM) 02/13/17 02:24 Glucose 124 mg/dL (74-99) H 02/13/17 02:24 POC Glucose (mg/dL) 123 mg/dL (75-99) H 02/13/17 11:28 POC Glu Outreach Representative ID Lynne Khan 02/13/17 11:[address] Glu mg/dL 120 mg/dL 02/10/17 23:25 Hemoglobin A1c 5.8 % (4.2-6.1) 02/10/17 23:25 Plasma Lactic Acid Hugo 1.3 mmol/L (0.7-2.0) 02/11/17 03:21 Uric Acid 6.7 mg/dL (3.5-8.5) 02/10/17 23:25 Calcium 9.0 mg/dL (8.4-10.2) 02/13/17 02:24 Total Bilirubin 0.6 mg/dL (0.2-1.3) 02/12/17 07:43 AST 21 U/L (17-59) 02/12/17 07:43 ALT 27 U/L (21-72) 02/12/17 07:43 Alkaline Phosphatase 123 U/L (38-126) 02/12/17 07:43 Total Protein 5.9 g/dL (6.3-8.2) L 02/12/17 07:43 Albumin 3.2 g/dL (3.5-5.0) L 02/12/17 07:43 Vancomycin Trough 19.1 ug/mL 02/13/17 02:24 Microbiology 02/10/17 23:25 Blood Blood Culture - Preliminary No Growth after 48 hours Assessment and Plan (1) Toe fracture, right Status: Acute (2) Cellulitis of right toe Narrative/Plan: Pleasant 56-year-old male presents to Hospital significant swelling to his right foot. Was also having some increasing muscle pain. He relates to the trauma to his foot. Is evidence of the minimally displaced fracture of the right hallux. He now has a specialty boot. The significant cellulitis that he was suffering from is now showing marked improvement. Refer discharge home. Oral antibiotic therapy with Bactrim double strength one 3 times per day has been suggested. Local wound care as offloading with the specialty boot from orthopedics. Elevate the foot at rest He reports he has much improved at this point in time. The bone scan is positive is on the basis of the fracture. Status: Acute
--- NOTE | 2017-02-14 16:08 | DS ---
DATE OF ADMISSION: 02/11/2017 DATE OF DISCHARGE: 02/13/2017 DATE OF SERVICE: 02/13/2017 FINAL DIAGNOSES: 1. Right big toe proximal phalanx intra-articular fracture, status post fall, with overlying significant cellulitis and severe pain with no evidence of osteomyelitis currently. 2. Gait dysfunction secondary to #1. 3. Chronic obstructive pulmonary disease. 4. Diabetes mellitus, type 2. 5. History of gastroesophageal reflux disease. 6. Hypertension, essential. 7. Hyperlipidemia. 8. History of liver cirrhosis. 9. History of irritable bowel syndrome. 10. History of sciatica. 11. History of diabetic peripheral neuropathy. 12. History of pacemaker for complete heart block. 13. Left foot surgery. 14. History of degenerative joint disease. 15. Anxiety not otherwise specified. 16. Ongoing nicotine dependence. 17. FULL CODE. DISCHARGE DISPOSITION: Patient will be discharged in stable condition with guarded prognosis. Total time taken 35 minutes. HISTORY OF PRESENT ILLNESS: This 56-year-old gentleman with a past medical history of multiple medical problems, as mentioned earlier, presented after accidentally dropping a heavy object on the right big toe with subsequent pain and swelling. The patient was found to have proximal intra-articular phalanx fracture. The possibility of osteomyelitis was suspected, but bone scan possibly suggested more of a healing fracture than osteomyelitis. Overlying cellulitis was treated with antibiotics and improved significantly. On exam, vitals are stable. CARDIOVASCULAR SYSTEM: S1, S2 muffled. ABDOMEN: Soft. NERVOUS SYSTEM: No focal deficit. EXAMINATION OF THE RIGHT BIG TOE: Still swollen. Much better. Much improved. The labs showed WBC 4, hemoglobin 13.4. Cultures are negative. The patient was seen by Orthopedic Surgery as well as Infectious Disease. Patient will be discharged in stable condition with guarded prognosis with the following advice and medications: 1. Diet is cardiac. 2. Activity limited until followup. 3. Follow up with Dr. Guajardo in 2 to 3 days. 4. Follow up with Dr. Sen as advised. 5. Albuterol 2.5 q.i.d. and p.r.n. 6. Xanax 0.5 p.o. daily p.r.n. 7. Norvasc 5 mg p.o. daily. 8. Lipitor 20 mg p.o. daily. 9. Symbicort 160/4.5 two puffs b.i.d. 10. Bentyl 10 mg p.o. daily. 11. Cymbalta 60 mg at bedtime. 12. Vitamin D2 50,000 daily. 13. Cary 5 mg q.6 p.r.n. 14. Prinivil 10 mg p.o. daily. 15. Glucophage 500 mg p.o. b.i.d. 16. Multivitamins 1 p.o. daily. 17. Prilosec 20 mg daily. 18. Gas-X 125 mg p.o. daily. 19. Bactrim DS one p.o. t.i.d. for 10 days. 20. Thiamine 100 mg p.o. daily. 21. Follow-up labs CBC, BMP with Dr. Guajardo. Once again, the patient will be discharged in stable condition with guarded prognosis.
[2017-02-15] MEDS ORDERED: ERGOCALCIFEROL 50,000 UNIT CAP PO SCH (09:00)
== END 2017-02-13 12:50 | disposition home or self-care (01) | DRG 603 ==
LOC: EC 22:24 → 5MS5E 02-11 01:20
PROVIDERS: ADMIT Hospitalist; ATTEND Hospitalist
PROC: 2W3SXYZ Immobilization of Right Foot using Other Device (ICD-10-PCS; principal; 2017-02-11)
DX: L03.115 Cellulitis of right lower limb (principal); I44.2 Atrioventricular block, complete; E11.42 Type 2 diabetes mellitus with diabetic polyneuropathy; E11.51 Type 2 diabetes mellitus with diabetic peripheral angiopathy without gangrene; S92.411A Displaced fracture of proximal phalanx of right great toe, initial encounter for closed fracture; I10 Essential (primary) hypertension; K74.60 Unspecified cirrhosis of liver; D72.829 Elevated white blood cell count, unspecified; L03.031 Cellulitis of right toe; J44.9 Chronic obstructive pulmonary disease, unspecified; K21.9 Gastro-esophageal reflux disease without esophagitis; E78.5 Hyperlipidemia, unspecified; R74.0 Nonspecific elevation of levels of transaminase and lactic acid dehydrogenase [LDH]; K58.9 Irritable bowel syndrome, unspecified; F17.210 Nicotine dependence, cigarettes, uncomplicated; M54.30 Sciatica, unspecified side; R26.9 Unspecified abnormalities of gait and mobility; M54.9 Dorsalgia, unspecified; F41.9 Anxiety disorder, unspecified; M19.90 Unspecified osteoarthritis, unspecified site; R50.9 Fever, unspecified; Z95.0 Presence of cardiac pacemaker; Z79.84 Long term (current) use of oral hypoglycemic drugs; Z71.6 Tobacco abuse counseling; Z79.899 Other long term (current) drug therapy; Z79.51 Long term (current) use of inhaled steroids; Z83.3 Family history of diabetes mellitus; W20.1XXA Struck by object due to collapse of building, initial encounter
CPT/HCPCS: 36415; 78315; 80048; 80053; 80202; 83036; 83605; 84550; 85025; 85610; 85730; 87040; 93005; 94640

== ENCOUNTER 2017-07-18 22:20 | Observation (INO) | payer MEDICARE ==
[2017-07-18] MEDS ORDERED: SODIUM CHLORIDE 0.9% 1,000 ML IV STA (22:32)
--- NOTE | 2017-07-18 22:39 | ED ---
General Adult HPI - General Chief complaint: Chest Pain Stated complaint: Palpitations Time Seen by Provider: 07/18/17 22:32 Source: patient, RN notes reviewed, old records reviewed Mode of arrival: wheelchair Limitations: no limitations - History of Present Illness Initial comments: This is a 56-year-old male to the ER for evaluation. Patient presents today for evaluation regards to lightheadedness dizziness and not feeling well. Patient has complex recent medical history including heart block with pacemaker and recent diagnosis of PE. Patient denies fevers chest pain or shortness of breath. Patient is complaining of significant lightheadedness over the last 2 days. That has progressed. No nausea vomiting palpitations taking all medications as prescribed. - Related Data Home Medications Medication Instructions Recorded Confirmed ALPRAZolam [Xanax] 0.5 mg PO BID PRN 10/23/14 07/18/17 Omeprazole [PriLOSEC] 20 mg PO AC-BRKFST 10/23/14 07/18/17 Dicyclomine [Bentyl] 10 mg PO DAILY 06/23/16 07/18/17 Multivitamins, Thera [Multivitamin 1 tab PO DAILY 06/23/16 07/18/17 (formulary)] Simethicone [Gas-X] 125 mg PO DAILY PRN 06/23/16 07/18/17 Atorvastatin [Lipitor] 20 mg PO HS 11/09/16 07/18/17 metFORMIN HCL [Glucophage] 500 mg PO BID 11/09/16 07/18/17 Budesonide-Formot 160-4.5 Mcg 2 puff INHALATION RT-BID PRN 01/23/17 07/18/17 [Symbicort 160-4.5 Mcg Inhaler] DULoxetine HCL [Cymbalta] 60 mg PO HS 02/11/17 07/18/17 Albuterol Sulfate [Proair Hfa] 1 - 2 puff INHALATION RT-QID PRN 06/25/17 Promethazine [Phenergan] 25 mg PO DAILY PRN 06/25/17 07/18/17 Metoprolol Succinate (ER) [Toprol 1 tab PO DAILY 07/18/17 07/18/17 XL] Previous Rx's Medication Instructions Recorded Lisinopril [Prinivil] 10 mg PO DAILY #30 tab 11/10/16 amLODIPine BESYLATE [Norvasc] 5 mg PO DAILY #30 tablet 11/11/16 Albuterol Nebulized [Ventolin 2.5 mg INHALATION RT-QID PRN #0 02/13/17 Nebulized] Rivaroxaban [Xarelto Starter Pack] 1 each PO DIRECTED #1 packet 06/27/17 Allergies Allergy/AdvReac Type Severity Reaction Status Date / Time No Known Allergies Allergy Verified 06/26/17 02:40 Review of Systems ROS Statement: Those systems with pertinent positive or pertinent negative responses have been documented in the HPI. ROS Other: All systems not noted in ROS Statement are negative. Past Medical History Past Medical History: COPD, Diabetes Mellitus, GERD/Reflux, Hyperlipidemia, Hypertension Additional Past Medical History / Comment(s): Liver cirrhosis, IBS, Sciatica ddd neuropathy, diabetic neuropathy. third degree heart block. History of Any Multi-Drug Resistant Organisms: None Reported Past Surgical History: Orthopedic Surgery, Pacemaker Additional Past Surgical History / Comment(s): left foot surgery, pacemaker placed 11/09/2016 Past Anesthesia/Blood Transfusion Reactions: No Reported Reaction Type of Cardiac Device: Permanent Pacemaker Device Placement Date:: 11/08/2016 Past Psychological History: Anxiety Smoking Status: Current every day smoker Past Alcohol Use History: Occasional Past Drug Use History: None Reported - Past Family History Father History Unknown: Yes Family Medical History: No Reported History Mother History Unknown: Yes Family Medical History: Diabetes Mellitus General Exam Limitations: no limitations General appearance: alert, in no apparent distress Head exam: Present: atraumatic, normocephalic, normal inspection Eye exam: Present: normal appearance, PERRL, EOMI. Absent: scleral icterus, conjunctival injection, periorbital swelling ENT exam: Present: normal exam, mucous membranes moist Neck exam: Present: normal inspection. Absent: tenderness, meningismus, lymphadenopathy Respiratory exam: Present: normal lung sounds bilaterally. Absent: respiratory distress, wheezes, rales, rhonchi, stridor Cardiovascular Exam: Present: regular rate, normal rhythm, normal heart sounds. Absent: systolic murmur, diastolic murmur, rubs, gallop, clicks GI/Abdominal exam: Present: soft, normal bowel sounds. Absent: distended, tenderness, guarding, rebound, rigid Extremities exam: Present: normal inspection, full ROM, normal capillary refill. Absent: tenderness, pedal edema, joint swelling, calf tenderness Back exam: Present: normal inspection Neurological exam: Present: alert, oriented X3, CN II-XII intact Psychiatric exam: Present: normal affect, normal mood Skin exam: Present: warm, dry, intact, normal color. Absent: rash Course Vital Signs 07/18/17 07/18/17 07/18/17 22:24 22:47 22:50 Temperature 98 F Pulse Rate 68 Pulse Rate [ 70 Stand In ] Respiratory 18 22 Rate Blood Pressure 150/88 O2 Sat by Pulse 97 Oximetry 07/18/17 23:26 Temperature Pulse Rate 65 Pulse Rate [ Stand In ] Respiratory 18 Rate Blood Pressure 137/88 O2 Sat by Pulse 100 Oximetry - Reevaluation(s) Reevaluation #1: 07/18/17 22:38 Patient has paced rhythm, still feels lightheaded EKG Findings - EKG Comments: EKG Findings:: EKG shows sinus rhythm rate of 65, pO2 12, QRS 188, QTc 505 Medical Decision Making - Medical Decision Making 56 male the ER with near syncope, near syncopal event arrhythmia, patient is recent diagnosis of PE and still can complains of feeling lightheaded dizzy and regular pass out. Patient will be admitted for further evaluation by cardiology - Lab Data Result diagrams: 07/18/17 22:44 07/18/17 22:44 Lab Results 07/18/17 07/18/17 07/18/17 Range/Units 22:44 22:44 22:44 WBC 8.5 (3.8-10.6) k/uL RBC 4.58 (4.30-5.90) m/uL Hgb 14.2 (13.0-17.5) gm/dL Hct 44.5 (39.0-53.0) % MCV 97.3 (80.0-100.0) fL MCH 31.1 (25.0-35.0) pg MCHC 32.0 (31.0-37.0) g/dL RDW 15.2 (11.5-15.5) % Plt Count 158 (150-450) k/uL Neutrophils % 64 % Lymphocytes % 22 % Monocytes % 6 % Eosinophils % 6 % Basophils % 1 % Neutrophils # 5.5 (1.3-7.7) k/uL Lymphocytes # 1.9 (1.0-4.8) k/uL Monocytes # 0.5 (0-1.0) k/uL Eosinophils # 0.5 (0-0.7) k/uL Basophils # 0.1 (0-0.2) k/uL PT (9.0-12.0) sec INR (<1.2) APTT (22.0-30.0) sec Sodium 136 L (137-145) mmol/L Potassium 3.8 (3.5-5.1) mmol/L Chloride 101 (98-107) mmol/L Carbon Dioxide 24 (22-30) mmol/L Anion Gap 11 mmol/L BUN 9 (9-20) mg/dL Creatinine 1.00 (0.66-1.25) mg/dL Est GFR (MDRD) Af Amer >60 (>60 ml/min/1.73 sqM) Est GFR (MDRD) Non-Af >60 (>60 ml/min/1.73 sqM) Glucose 85 (74-99) mg/dL Calcium 9.0 (8.4-10.2) mg/dL Magnesium 1.3 L (1.6-2.3) mg/dL Total Bilirubin 0.5 (0.2-1.3) mg/dL AST 25 (17-59) U/L ALT 38 (21-72) U/L Alkaline Phosphatase 96 (38-126) U/L Total Creatine Kinase 83 (55-170) U/L CK-MB (CK-2) 1.4 (0.0-2.4) ng/mL CK-MB (CK-2) Rel Index 1.7 Troponin I <0.012 (0.000-0.034) ng/mL NT-Pro-B Natriuret Pep pg/mL Total Protein 6.6 (6.3-8.2) g/dL Albumin 3.8 (3.5-5.0) g/dL Lipase 68 (23-300) U/L 07/18/17 07/18/17 Range/Units 22:44 22:44 WBC (3.8-10.6) k/uL RBC (4.30-5.90) m/uL Hgb (13.0-17.5) gm/dL Hct (39.0-53.0) % MCV (80.0-100.0) fL MCH (25.0-35.0) pg MCHC (31.0-37.0) g/dL RDW (11.5-15.5) % Plt Count (150-450) k/uL Neutrophils % % Lymphocytes % % Monocytes % % Eosinophils % % Basophils % % Neutrophils # (1.3-7.7) k/uL Lymphocytes # (1.0-4.8) k/uL Monocytes # (0-1.0) k/uL Eosinophils # (0-0.7) k/uL Basophils # (0-0.2) k/uL PT 12.9 H (9.0-12.0) sec INR 1.3 H (<1.2) APTT 32.1 H (22.0-30.0) sec Sodium (137-145) mmol/L Potassium (3.5-5.1) mmol/L Chloride (98-107) mmol/L Carbon Dioxide (22-30) mmol/L Anion Gap mmol/L BUN (9-20) mg/dL Creatinine (0.66-1.25) mg/dL Est GFR (MDRD) Af Amer (>60 ml/min/1.73 sqM) Est GFR (MDRD) Non-Af (>60 ml/min/1.73 sqM) Glucose (74-99) mg/dL Calcium (8.4-10.2) mg/dL Magnesium (1.6-2.3) mg/dL Total Bilirubin (0.2-1.3) mg/dL AST (17-59) U/L ALT (21-72) U/L Alkaline Phosphatase (38-126) U/L Total Creatine Kinase (55-170) U/L CK-MB (CK-2) (0.0-2.4) ng/mL CK-MB (CK-2) Rel Index Troponin I (0.000-0.034) ng/mL NT-Pro-B Natriuret Pep 828 pg/mL Total Protein (6.3-8.2) g/dL Albumin (3.5-5.0) g/dL Lipase (23-300) U/L Disposition Clinical Impression: Dizziness, Near syncope, Pulmonary embolism, Arrhythmia Disposition: ADMITTED IP TO THIS [facility] Condition: Fair Referrals: McPhilimy,Brigido, DO [Primary Care Provider] - 1-2 days
[2017-07-18 22:52] LABS: Basophils # (A) 0.1 k/uL (0-0.2); Basophils % (A) 1 %; CHCM 33.2; Eosinophils # (A) 0.5 k/uL (0-0.7); Eosinophils % (A) 6 %; HCT 44.5 % (39.0-53.0); HDW 2.52; HGB 14.2 gm/dL (13.0-17.5); Luc # (Auto) 0.14; Luc % (Auto) 2; Lymphocytes # (A) 1.9 k/uL (1.0-4.8); Lymphocytes % (A) 22 %; MCH 31.1 pg (25.0-35.0); MCV 97.3 fL (80.0-100.0); Mean Platelet Volume 7.9; Monocytes # (A) 0.5 k/uL (0-1.0); Monocytes % (A) 6 %; Neutrophils # (A) 5.5 k/uL (1.3-7.7); Neutrophils % (A) 64 %; RBC 4.58 m/uL (4.30-5.90); RDW 15.2 % (11.5-15.5); WBC 8.5 k/uL (3.8-10.6); WBC (Perox) 8.57
[2017-07-18 23:05] LABS: INR 1.3 (<1.2); Partial Thromboplastin Time 32.1 sec (22.0-30.0); Prothrombin Time 12.9 sec (9.0-12.0)
[2017-07-18 23:08] LABS: ALT 38 U/L (21-72); AST 25 U/L (17-59); Alkaline Phosphatase 96 U/L (38-126); Anion Gap 11 mmol/L; Blood Urea Nitrogen 9 mg/dL (9-20); Carbon Dioxide 24 mmol/L (22-30); Chloride 101 mmol/L (98-107); Glucose 85 mg/dL (74-99); Magnesium 1.3 mg/dL (1.6-2.3); Non-African American GFR(MDRD) >60 (>60 ml/min/1.73 sqM); Potassium 3.8 mmol/L (3.5-5.1); Sodium 136 mmol/L (137-145); Total Bilirubin 0.5 mg/dL (0.2-1.3); Total Protein 6.6 g/dL (6.3-8.2)
[2017-07-18 23:12] LABS: Creatine Kinase 83 U/L (55-170)
[2017-07-18 23:25] LABS: Creatine Kinase MB 1.4 ng/mL (0.0-2.4); Troponin I <0.012 ng/mL (0.000-0.034)
[2017-07-18] MEDS ORDERED: SODIUM CHLORIDE 0.9% 1,000 ML IV SCH (23:45)
[2017-07-18] MEDS ORDERED: NITROGLYCERIN SL TABS 0.4 MG TAB SUBLINGUAL PRN (23:50)
[2017-07-19 05:07] LABS: Cholesterol 109 mg/dL (<200); HDL Cholesterol 33 mg/dL (40-60)
[2017-07-19 05:21] LABS: Creatine Kinase 63 U/L (55-170)
[2017-07-19 05:34] LABS: Creatine Kinase MB 1.3 ng/mL (0.0-2.4); Troponin I <0.012 ng/mL (0.000-0.034)
[2017-07-19 05:54] VITALS: BMI 36.3
[2017-07-19 07:17] LABS: Glucose,Whole Blood 122 mg/dL (75-99)
[2017-07-19] MEDS ORDERED: PROMETHAZINE 25 MG TAB PO PRN (08:38)
[2017-07-19] MEDS ORDERED: ALBUTEROL NEBULIZED 2.5 MG/3 ML INHALATION PRN (08:38)
[2017-07-19] MEDS ORDERED: SIMETHICONE 80 MG CHEWABLE PO PRN (08:38)
[2017-07-19] MEDS ORDERED: ALPRAZolam 0.5 MG TAB PO PRN (08:38)
[2017-07-19] MEDS ORDERED: RIVAROXABAN PO SCH (08:45)
[2017-07-19] MEDS ORDERED: ASPIRIN 325 MG TAB PO SCH (09:00)
[2017-07-19] MEDS ORDERED: LISINOPRIL 10 MG TAB PO SCH (09:00)
[2017-07-19] MEDS: metFORMIN 500 MG TAB PO SCH ×2 (09:29→18:30)
[2017-07-19] MEDS: METOPROLOL SUCCINATE (ER) 25 MG TAB.ER.24H PO SCH (09:29)
[2017-07-19] MEDS: amLODIPine 5 MG TAB PO SCH (09:29)
[2017-07-19] MEDS: MULTIVITAMINS, THERA 1 EACH TAB PO SCH (09:29)
[2017-07-19] MEDS: PANTOPRAZOLE 40 MG TABLET PO SCH (09:29)
[2017-07-19] MEDS: DICYCLOMINE 10 MG CAP PO SCH (09:30)
[2017-07-19] MEDS: LISINOPRIL 20 MG TAB PO SCH (10:25)
--- NOTE | 2017-07-19 10:32 | CONS ---
CONSULTATION Mr. Valero is a 56-year-old gentleman with a known history of high-grade AV block requiring a permanent pacemaker following a temporary pacemaker in November of this year. He also has hypertension, hypercholesterolemia and on June 25, he presented with what seems to be a pulmonary embolism and was placed on Xarelto and discharged. He comes back into the office after having had a stress test and a pacemaker check. Apparently, he had some ventricular ectopy and a beta-scott was added to his regimen last week. He had a stress test. The results of which are not available at this time, but I do not believe there was any significant abnormality. I will verify this. The patient had this stress test and was started on a beta scott last week in our office. Since then, he has easy feels and dizzy and lightheaded without actually passing out and he comes into the hospital. This morning his orthostatic changes are unremarkable. His blood pressure is 148/83. He is in a sinus rhythm with atrial sensed and ventricular paced rhythm. He denies any dizziness at the time of my evaluation. He is resting comfortably. His D-dimer was normal. Two sets of troponins are unremarkable. PAST MEDICAL HISTORY: 1. High-grade AV block with a pacemaker. 2. Hypertension. 3. Hypercholesterolemia. 4. History of a permanent pacemaker. 5. Recent episode of pulmonary embolism for which he has been placed on rivaroxaban. MEDICATIONS: At home included atorvastatin, metoprolol succinate 25 mg daily, and omeprazole and lisinopril 10 mg daily. He was started on amlodipine after his arrival. He also has a type 2 diabetes mellitus and he does take metformin. He does use some inhaler. ALLERGIES: None. He has been compliant with Xarelto. Finished 3 weeks of 50 mg b.i.d. and started 20 mg daily. On examination, 148/80, pulse rate is 70 per minute, regular. HEENT: Unremarkable. Fundus was not examined by me. Neck is supple. No JVD. I do not hear a carotid bruit. Heart exam reveals S1, S2 heard normally, but heart sounds are heard distantly. No significant murmur is detected. Lungs are clear. Abdomen is soft. Lower extremities reveal diminished pulses. Central nervous system grossly within normal limits. EKG revealed atrial sensed ventricular paced rhythm. IMPRESSION: 1. Near syncopal sensation with dizziness. No orthostatic changes. So far no arrhythmia of significance were detected. 2. Hypertension. 3. Hyperlipidemia. 4. Type 2 diabetes mellitus. 5. History of permanent pacemaker which is functioning well. 6. Recent pulmonary embolism on Xarelto with a normal D-dimer on this admission and unremarkable troponins. RECOMMENDATION: I would recommend that we discontinue IV. Increase oral fluids. Increase activity and observe him for 24 hours and if he has no further arrhythmia, he can be discharged and I will check the stress test results as well. I discussed my thoughts in detail with the patient. Thank you very much for the consult. WILI / KAYLI: [id number] /
[2017-07-19 11:04] LABS: Creatine Kinase 59 U/L (55-170)
[2017-07-19 11:18] LABS: Creatine Kinase MB 1.2 ng/mL (0.0-2.4); Troponin I <0.012 ng/mL (0.000-0.034)
[2017-07-19 11:58] LABS: Glucose,Whole Blood 122 mg/dL (75-99)
[2017-07-19] MEDS: INSULIN ASPART 100 UNIT/ML 1 ML 10 ML VIAL SQ SCH ×3 (12:19→21:03)
[2017-07-19] MEDS: MAGNESIUM SULFATE-D5W PMX 1 GM in DEXTROSE/WATER 1 100ML.BAG IVPB SCH ×2 (13:19→14:25)
[2017-07-19] MEDS ORDERED: IPRATROPIUM-ALBUTEROL 3 ML NEB INHALATION PRN (16:00)
--- NOTE | 2017-07-19 16:02 | P.HPIM ---
History of Present Illness H&P Date: 07/19/17 Chief Complaint: Dizziness Patient is a 55-year-old male with a known history of COPD, Diabetes Mellitus, GERD/Reflux, Hyperlipidemia, Hypertension, Liver cirrhosis, IBS, Sciatica ddd neuropathy, diabetic neuropathy. third degree heart block status post pacemaker presents today for evaluation regards to lightheadedness dizziness and not feeling well for the past 2 days. Patient says that dizziness is coming on and off and which she felt like when he had a pacemaker. Patient was diagnosed recently with PE and is currently on Xarelto. Patient was recently seen at Dr. Rousseau's office and was found to have ventricular ectopy and was added beta blockers at the time. Patient denied any nausea vomiting or abdominal pain. No palpitations. No diarrhea. Patient has been taking his medications at home. EKG showed first-degree AV block Magnesium 1.3 Past Medical History Past Medical History: COPD, Diabetes Mellitus, GERD/Reflux, Hyperlipidemia, Hypertension Additional Past Medical History / Comment(s): Liver cirrhosis, IBS, Sciatica ddd neuropathy, diabetic neuropathy. third degree heart block. History of Any Multi-Drug Resistant Organisms: None Reported Past Surgical History: Orthopedic Surgery, Pacemaker Additional Past Surgical History / Comment(s): left foot surgery, pacemaker placed 11/09/2016 Past Anesthesia/Blood Transfusion Reactions: No Reported Reaction Type of Cardiac Device: Permanent Pacemaker Device Placement Date:: 11/08/2016 Past Psychological History: Anxiety Smoking Status: Current every day smoker Past Alcohol Use History: Occasional Additional Past Alcohol Use History / Comment(s): Patient was a smoker of 3 packs per day and has been smoking for 40 years. He has been trying to quit smoking for the past 1 year and is currently down to less than a pack a day. Patient does roll his own cigarettes. He does have history of alcohol abuse and quit drinking 6 years ago due to diagnosis of liver cirrhosis. He lives at home with his . There are no pets in the home. No service. Patient is currently living in a camper in the [facility] with planned to camp in [place] during the summer and either [place] or [place] in in the [place]. Past Drug Use History: None Reported - Past Family History Father History Unknown: Yes Family Medical History: No Reported History Mother History Unknown: Yes Family Medical History: Diabetes Mellitus Medications and Allergies Home Medications Medication Instructions Recorded Confirmed Type ALPRAZolam [Xanax] 0.5 mg PO BID PRN 10/23/14 07/19/17 History Omeprazole [PriLOSEC] 20 mg PO AC-BRKFST 10/23/14 07/19/17 History Dicyclomine [Bentyl] 10 mg PO DAILY 06/23/16 07/19/17 History Multivitamins, Thera [Multivitamin 1 tab PO DAILY 06/23/16 07/19/17 History (formulary)] Simethicone [Gas-X] 125 mg PO DAILY PRN 06/23/16 07/19/17 History Atorvastatin [Lipitor] 20 mg PO HS 11/09/16 07/19/17 History metFORMIN HCL [Glucophage] 500 mg PO BID 11/09/16 07/19/17 History Lisinopril [Prinivil] 10 mg PO DAILY #30 tab 11/10/16 07/19/17 Rx DULoxetine HCL [Cymbalta] 60 mg PO HS 02/11/17 07/19/17 History Promethazine [Phenergan] 25 mg PO DAILY PRN 06/25/17 07/19/17 History Metoprolol Succinate (ER) [Toprol 25 mg PO DAILY 07/18/17 07/19/17 History XL] Albuterol Inhaler [Ventolin Hfa 2 puff INHALATION RT-QID 07/19/17 07/19/17 History Inhaler] Rivaroxaban [Xarelto Starter Pack] See Taper PO DIRECTED 07/19/17 07/19/17 History traMADol HCL [Ultram] 50 mg PO BID PRN 07/19/17 07/19/17 History Allergies Allergy/AdvReac Type Severity Reaction Status Date / Time No Known Allergies Allergy Verified 07/19/17 10:36 Physical Exam Vitals: Vital Signs Temp Pulse Pulse Pulse Pulse Pulse Resp 07/19/17 12:00 97.4 F L 61 80 64 16 07/19/17 09:00 80 64 07/19/17 08:00 97.9 F 72 80 64 18 07/19/17 06:16 18 07/19/17 04:25 98.2 F 72 18 07/19/17 01:00 18 07/19/17 00:33 96.9 F L 67 18 07/18/17 23:26 65 18 07/18/17 22:50 22 07/18/17 22:47 70 07/18/17 22:24 98 F 68 18 BP BP BP BP Pulse Ox 07/19/17 12:00 145/83 94 L 07/19/17 09:00 148/93 143/83 07/19/17 08:00 155/102 93 L 07/19/17 06:16 07/19/17 04:25 170/97 94 L 07/19/17 01:00 07/19/17 00:33 157/95 96 07/18/17 23:26 137/88 100 07/18/17 22:50 07/18/17 22:47 07/18/17 22:24 150/88 97 Intake and Output 07/18/17 07/19/17 07/19/17 22:59 06:59 14:59 Other: Voiding Method Toilet # Voids 1 Weight 121.563 kg 121.563 kg PHYSICAL EXAMINATION: Patient is lying in the bed comfortably, no acute distress, awake alert and oriented.. HEENT: Normocephalic. Neck is supple. Pupils reactive. Nostrils clear. Oral cavity is moist. Ears reveal no drainage. Neck reveals no JVD, carotid bruits, or thyromegaly. CHEST EXAMINATION: Trachea is central. Symmetrical expansion. Bilateral minimal diffuse wheezing.. CARDIAC: Normal S1, S2 with no gallops. No murmurs ABDOMEN: Soft. Bowel sounds normal. No organomegaly. No abdominal bruits. Extremities: reveal no edema. No clubbing or cyanosis Neurologically awake, alert, oriented x3 with well-coordinated movements. No focal deficits noted Skin: No rash or skin lesions. Psychiatric: Cooperative. Nonsuicidal Musculoskeletal: No joint swelling or deformity. Normal range of motion. Results CBC & Chem 7: 07/18/17 22:44 07/18/17 22:44 Labs: Abnormal Lab Results - Last 24 Hours (Table) 07/18/17 07/18/17 07/19/17 Range/Units 22:44 22:44 04:47 PT 12.9 H (9.0-12.0) sec INR 1.3 H (<1.2) APTT 32.1 H (22.0-30.0) sec Sodium 136 L (137-145) mmol/L POC Glucose (mg/dL) (75-99) mg/dL Magnesium 1.3 L (1.6-2.3) mg/dL HDL Cholesterol 33 L (40-60) mg/dL 07/19/17 07/19/17 Range/Units 07:14 11:52 PT (9.0-12.0) sec INR (<1.2) APTT (22.0-30.0) sec Sodium (137-145) mmol/L POC Glucose (mg/dL) 122 H 122 H (75-99) mg/dL Magnesium (1.6-2.3) mg/dL HDL Cholesterol (40-60) mg/dL Thrombosis Risk Factor Assmnt - Choose All That Apply Each Factor Represents 1 point: Abnormal pulmonary function (COPD), Age 41-60 years, Obesity (BMI >25) Thrombosis Risk Factor Assessment Total Risk Factor Score: 3 Thrombosis Risk Factor Assessment Level: Moderate Risk Assessment and Plan Assessment: #1 near syncope. Orthostatics negative. We will rule out arrhythmias. #2 recent diagnosis of PE about 2 weeks ago. currently on anticoagulation #3 hypertension, #4 hyperlipidemia #5 COPD stable #6 diabetic neuropathy #7 diabetes type 2 #8 history of pacemaker placement for third-degree heart block. #9 hypomagnesemia #10 alcoholic liver cirrhosis quit alcohol 6 years ago #11 nicotine addiction . counseled. Plan: Patient will be continued on telemetry monitoring. Serial EKGs and troponins. Pacemaker is working appropriately as per cardiology. Will follow up stress test report done at [facility] office last week. Will continue anticoagulation. We'll replace magnesium. Encourage activity and oral diet. Continue with home medications and follow CBG. Time with Patient: Greater than 30
[2017-07-19 16:24] VITALS: RESP 18
[2017-07-19 16:52] LABS: Glucose,Whole Blood 106 mg/dL (75-99)
[2017-07-19] MEDS: RIVAROXABAN 10 MG TAB PO SCH (18:30)
[2017-07-19 20:34] LABS: Glucose,Whole Blood 119 mg/dL (75-99)
[2017-07-19] MEDS: ALBUTEROL NEBULIZED 2.5 MG/3 ML INHALATION PRN (20:41)
[2017-07-19] MEDS: SYMBICORT 160-4.5 MCG INHALER INHALATION PRN (20:41)
[2017-07-19] MEDS ORDERED: ATORVASTATIN 20 MG TAB PO SCH (21:00)
[2017-07-19] MEDS ORDERED: DULoxetine HCL 60 MG CAPSULE.DR PO SCH (21:00)
[2017-07-20 06:59] LABS: Glucose,Whole Blood 109 mg/dL (75-99)
[2017-07-20] MEDS: INSULIN ASPART 100 UNIT/ML 1 ML 10 ML VIAL SQ SCH ×3 (08:41→17:18)
[2017-07-20] MEDS: PANTOPRAZOLE 40 MG TABLET PO SCH (08:43)
[2017-07-20] MEDS: DICYCLOMINE 10 MG CAP PO SCH (08:43)
[2017-07-20] MEDS: SYMBICORT 160-4.5 MCG INHALER INHALATION PRN (09:02)
[2017-07-20] MEDS: ALBUTEROL NEBULIZED 2.5 MG/3 ML INHALATION PRN ×2 (09:02→16:30)
[2017-07-20] MEDS: amLODIPine 5 MG TAB PO SCH (10:39)
[2017-07-20] MEDS: metFORMIN 500 MG TAB PO SCH ×2 (10:39→17:18)
[2017-07-20] MEDS: MULTIVITAMINS, THERA 1 EACH TAB PO SCH (10:40)
[2017-07-20] MEDS: LISINOPRIL 20 MG TAB PO SCH (10:40)
--- NOTE | 2017-07-20 11:17 | ECHOF ---
Referral Reason:heart function MEASUREMENTS -------- HEIGHT: 182.9 cm WEIGHT: 121.6 kg BP: 155/89 RVIDd: 3.6 cm (< 3.3) IVSd: 1.9 cm (0.6 - 1.1) LVIDd: 4.0 cm (3.9 - 5.3) LVPWd: 1.9 cm (0.6 - 1.1) IVSs: 2.0 cm LVIDs: 3.0 cm LVPWs: 2.0 cm LA Diam: 4.0 cm (2.7 - 3.8) LAESV Index (A-L): 22.03 ml/m Ao Diam: 4.0 cm (2.0 - 3.7) AV Cusp: 2.4 cm (1.5 - 2.6) MV EXCURSION: 17.180 mm (> 18.000) MV EF SLOPE: 62 mm/s (70 - 150) EPSS: 0.9 cm MV E Al: 0.62 m/s MV DecT: 335 ms MV A Al: 0.78 m/s MV E/A Ratio: 0.80 RAP: 5.00 mmHg RVSP: 18.11 mmHg FINDINGS -------- Sinus rhythm. This was a technically adequate study. The left ventricular size is normal. There is severe concentric left ventricular hypertrophy. Ove rall left ventricular systolic function is low-normal with, an EF between 50 - 55 %. Apical septum LV wall motion is hypokinetic. The right ventricle is mildly enlarged. Normal LA size by volume 22+/-6 ml/m2. The right atrium is normal in size. There is mild aortic valve sclerosis. Mild mitral annular calcification present. Mild tricuspid regurgitation present. Right ventricular systolic pressure is normal at < 35 mmHg. The pulmonic valve was not well visualized. The aortic root is dilated measuring 4.0cm. The inferior vena cava is mildly dilated. The pericardium is normal. CONCLUSIONS -------- 1. Sinus rhythm. 2. This was a technically adequate study. 3. The left ventricular size is normal. 4. There is severe concentric left ventricular hypertrophy. 5. Overall left ventricular systolic function is low-normal with, an EF between 50 - 55 %. 6. Apical septum LV wall motion is hypokinetic. 7. The right ventricle is mildly enlarged. 8. Normal LA size by volume 22+/-6 ml/m2. 9. The right atrium is normal in size. 10. There is mild aortic valve sclerosis. 11. Mild mitral annular calcification present. 12. Mild tricuspid regurgitation present. 13. Right ventricular systolic pressure is normal at < 35 mmHg. 14. The pulmonic valve was not well visualized. 15. The aortic root is dilated measuring 4.0cm. 16. The inferior vena cava is mildly dilated. 17. The pericardium is normal. THEORETICAL PHYSICS TEACHER: Landy Harry RDCS
[2017-07-20 11:48] LABS: Glucose,Whole Blood 160 mg/dL (75-99)
[2017-07-20] MEDS: METOPROLOL SUCCINATE (ER) 25 MG TAB.ER.24H PO SCH (13:13)
--- NOTE | 2017-07-20 13:20 | P.PN ---
Subjective Progress Note Date: 07/20/17 Mr. Valero is a 56-year-old male with past medical history significant for complete heart block with permanent pacemaker implantation, recent history of PE still on oral anticoagulation, hypertension, hyperlipidemia, COPD, liver cirrhosis and gastroesophageal reflux disease. He follows with Dr. Max as an outpatient. We are seeing him today in follow up from initial consultation for near syncope. He has been 100% paced on telemetry with no ectopy. He saw Dr. Max in June and underwent a Lexiscan and pacemaker interrogation. Lexiscan revealed fixed inferior wall defect secondary to soft-tissue attenuation. Pacemaker interrogation revealed an episode of non-sustained ventricular tachycardia. He was placed on toprol 25 mg at that time with was 07/03/2017. He says his dizziness has improved since admission but he does still feel mildly dizzy when he gets up and ambulates. He denies chest pain, shortness of breath, palpitations, diaphoresis, nausea or vomiting. Orthostatics were negative. Echocardiogram reveals preserved LV function with low-normal EF 50-55%; apical- septal wall motion hypokinesis; severe LVH; mild TR and mildly enlarged RV. Blood pressure 148/93 with heart rate 64. Cardiac enzymes negative x3 . Objective - Vital Signs Vital signs: Vital Signs Temp 97.3 F L 07/20/17 11:28 Pulse 61 07/20/17 11:28 Resp 18 07/20/17 11:28 BP 167/93 07/20/17 11:28 Pulse Ox 94 L 07/20/17 11:28 Intake & Output 07/19/17 07/20/17 07/20/17 18:59 06:59 18:59 Intake Total 1800 Balance 1800 Intake: Oral 1800 Other: Voiding Method Toilet Toilet Toilet # Voids 2 - Exam GENERAL: Well-appearing, well-nourished and in no acute distress. NECK: Supple without JVD or thyromegaly. LUNGS: Breath sounds clear to auscultation bilaterally. Respiration equal and unlabored. No wheezes, rales or rhonchi. HEART: Regular rate and rhythm without murmurs, rubs or gallops. S1 and S2 heard. EXTREMITIES: Normal range of motion, no edema. No clubbing or cyanosis. Peripheral pulses intact and strong. - Labs CBC & Chem 7: 07/18/17 22:44 07/18/17 22:44 Labs: Abnormal Lab Results - Last 24 Hours (Table) 07/19/17 07/19/17 07/20/17 Range/Units 16:50 20:29 06:58 POC Glucose (mg/dL) 106 H 119 H 109 H (75-99) mg/dL 07/20/17 Range/Units 11:46 POC Glucose (mg/dL) 160 H (75-99) mg/dL Assessment and Plan Assessment: ASSESSMENT 1. Near syncope with dizziness. No orthostatic changes. No arrhythmia noted on telemetry. 2. History of non-sustained ventricular tachycardia 05/2017 3. Hypertension 4. Hyperlipidemia 5. Recent PE, on xarelto 6. Complete heart block with permanent pacemaker implantation. 7. Diabetes mellitus 8. COPD 9. Former tobacco abuse. PLAN From cardiac perspective we recommend he undergo a tilt table test to evaluate for vasodepressor syncope. This can be done as an outpatient. Echocardiogram reveals severe left ventricular hypertrophy, should consider ischemic cardiomyopathy. This as well can be evaluated per Dr. Max as an outpatient. Toprol has been discontinued. He should be seen in the office in 1-2 weeks. Nurse Practitioner note has been reviewed, I agree with a documented findings and plan of care. Patient was seen and examined.
[2017-07-20 15:58] VITALS: BP 135/83; TEMP 98.5
[2017-07-20 16:41] VITALS: PULSE 68
[2017-07-20 17:09] LABS: Glucose,Whole Blood 110 mg/dL (75-99)
[2017-07-20] MEDS: RIVAROXABAN 10 MG TAB PO SCH (17:18)
--- NOTE | 2017-07-20 23:43 | P.DS ---
Providers Date of admission: 07/18/17 23:49 Expected date of discharge: 07/20/17 Attending physician: Tiffanie Hector Consults: 07/18/17 23:50 Consult Physician Urgent Consulting Provider: Dago Stern Consult Reason/Comments: nearSyncope Do you want consulting provider notified?: Yes Primary care physician: [facility] Course: Discharge diagnosis #1 near syncope. Orthostatics negative. No arrhythmias arrhythmias noted overnight. We did hold metoprolol which was recently started.. #2 recent diagnosis of PE about 2 weeks ago. currently on anticoagulation #3 hypertension, #4 hyperlipidemia #5 COPD stable #6 diabetic neuropathy #7 diabetes type 2 #8 history of pacemaker placement for third-degree heart block. #9 hypomagnesemia #10 alcoholic liver cirrhosis quit alcohol 6 years ago #11 nicotine addiction . counseled. Patient is a 55-year-old male with a known history of COPD, Diabetes Mellitus, GERD/Reflux, Hyperlipidemia, Hypertension, Liver cirrhosis, IBS, Sciatica ddd neuropathy, diabetic neuropathy. third degree heart block status post pacemaker presents today for evaluation regards to lightheadedness dizziness and not feeling well for the past 2 days. Patient says that dizziness is coming on and off and which she felt like when he had a pacemaker. Patient was diagnosed recently with PE and is currently on Xarelto. Patient was recently seen at Dr. Rousseau's office and was found to have ventricular ectopy and was added beta blockers at the time. Patient denied any nausea vomiting or abdominal pain. No palpitations. No diarrhea. Patient has been taking his medications at home. EKG showed first-degree AV block Magnesium 1.3 Patient was continued on telemetry monitoring. Serial EKGs and troponins negative. Pacemaker is working appropriately as per cardiology. Recent stress test was reviewed by cardiology which was essentially negative. 2-D echo showed normal ejection fraction. continued anticoagulation. replaced magnesium. Patient currently denied any dizziness or lightheadedness. Metoprolol has been discontinued which was recently started. Patient was advised to follow with primary care physician and cardiology clinic for tilt table test. Otherwise patient is stable to be discharged home. Discharge physical examination was done. Patient Condition at Discharge: Fair Plan - Discharge Summary New Discharge Prescriptions: Continue Omeprazole [PriLOSEC] 20 mg PO AC-BRKFST ALPRAZolam [Xanax] 0.5 mg PO BID PRN PRN Reason: Anxiety Multivitamins, Thera [Multivitamin (formulary)] 1 tab PO DAILY Dicyclomine [Bentyl] 10 mg PO DAILY Simethicone [Gas-X] 125 mg PO DAILY PRN PRN Reason: Indigestion metFORMIN HCL [Glucophage] 500 mg PO BID Atorvastatin [Lipitor] 20 mg PO HS Lisinopril [Prinivil] 10 mg PO DAILY #30 tab DULoxetine HCL [Cymbalta] 60 mg PO HS Promethazine [Phenergan] 25 mg PO DAILY PRN PRN Reason: Nausea And Vomiting traMADol HCL [Ultram] 50 mg PO BID PRN PRN Reason: Pain Rivaroxaban [Xarelto Starter Pack] See Taper PO DIRECTED Albuterol Inhaler [Ventolin Hfa Inhaler] 2 puff INHALATION RT-QID Discontinued Metoprolol Succinate (ER) [Toprol XL] 25 mg PO DAILY Discharge Medication List ALPRAZolam [Xanax] 0.5 mg PO BID PRN 10/23/14 [History] Omeprazole [PriLOSEC] 20 mg PO AC-BRKFST 10/23/14 [History] Dicyclomine [Bentyl] 10 mg PO DAILY 06/23/16 [History] Multivitamins, Thera [Multivitamin (formulary)] 1 tab PO DAILY 06/23/16 [History ] Simethicone [Gas-X] 125 mg PO DAILY PRN 06/23/16 [History] Atorvastatin [Lipitor] 20 mg PO HS 11/09/16 [History] metFORMIN HCL [Glucophage] 500 mg PO BID 11/09/16 [History] Lisinopril [Prinivil] 10 mg PO DAILY #30 tab 11/10/16 [Rx] DULoxetine HCL [Cymbalta] 60 mg PO HS 02/11/17 [History] Promethazine [Phenergan] 25 mg PO DAILY PRN 06/25/17 [History] Albuterol Inhaler [Ventolin Hfa Inhaler] 2 puff INHALATION RT-QID 07/19/17 [ History] Rivaroxaban [Xarelto Starter Pack] See Taper PO DIRECTED 07/19/17 [History] traMADol HCL [Ultram] 50 mg PO BID PRN 07/19/17 [History] Follow up Appointment(s)/Referral(s): Brigido Guajardo DO [Primary Care Provider] - 1-2 days Adam Max MD [STAFF PHYSICIAN] - 2 Weeks (Appointment made for Tilt Table test on Jul.28, office to call on Thursday with time.) Patient Instructions/Handouts: Syncope (GEN) Discharge Disposition: HOME SELF-CARE
== END 2017-07-20 17:46 | disposition home or self-care (01) ==
LOC: EC 22:20 → 3SUR 23:49 → 3OBS 07-19 06:59
PROVIDERS: ADMIT Hospitalist; ATTEND Hospitalist
DX: R55 Syncope and collapse (principal); R42 Dizziness and giddiness; I26.99 Other pulmonary embolism without acute cor pulmonale; Z79.01 Long term (current) use of anticoagulants; J44.9 Chronic obstructive pulmonary disease, unspecified; E11.40 Type 2 diabetes mellitus with diabetic neuropathy, unspecified; Z95.0 Presence of cardiac pacemaker; K70.30 Alcoholic cirrhosis of liver without ascites; E83.42 Hypomagnesemia; K21.9 Gastro-esophageal reflux disease without esophagitis; K58.9 Irritable bowel syndrome, unspecified; M54.30 Sciatica, unspecified side; E66.9 Obesity, unspecified; Z68.36 Body mass index [BMI] 36.0-36.9, adult; Z79.84 Long term (current) use of oral hypoglycemic drugs; Z79.899 Other long term (current) drug therapy; F17.210 Nicotine dependence, cigarettes, uncomplicated; F41.9 Anxiety disorder, unspecified; E78.00 Pure hypercholesterolemia, unspecified; I11.9 Hypertensive heart disease without heart failure
CPT/HCPCS: 96361 ×2; 93005 ×2; 96365; 96366; 99285; 36415; 94640 ×4; 94760; 93306; 85379; 83880; 80061; 80053; 82550 ×2; 82553 ×2; 83690; 83735; 84484 ×2; 85025; 85610; 85730; 83036; G0378 ×4; J3475

== ENCOUNTER 2017-12-05 21:14 | Inpatient (IN) | payer MEDICARE ==
[2017-12-05] MEDS ORDERED: IPRATROPIUM 0.5 MG/2.5 ML NEBU INHALATION STA (21:52)
[2017-12-05] MEDS ORDERED: ALBUTEROL NEBULIZED 2.5 MG/3 ML INHALATION STA (21:52)
[2017-12-05] MEDS ORDERED: AZITHROMYCIN 500 MG in SODIUM CHLORIDE 0.9% 250 ML IVPB STA (21:52)
[2017-12-05] MEDS ORDERED: methylPREDNISolone SOD SUCCI 125 MG/2 ML VIAL IV STA (21:52)
[2017-12-05 22:16] LABS: Basophils % (A) 1 %; Eosinophils # (A) 0.2 k/uL (0-0.7); Eosinophils % (A) 2 %; HCT 43.6 % (39.0-53.0); HGB 14.8 gm/dL (13.0-17.5); Lymphocytes % (A) 13 %; MCH 31.6 pg (25.0-35.0); MCV 92.9 fL (80.0-100.0); Mean Platelet Volume 7.3; Monocytes # (A) 0.6 k/uL (0-1.0); Monocytes % (A) 8 %; Neutrophils # (A) 5.3 k/uL (1.3-7.7); Neutrophils % (A) 73 %; Platelet Count 130 k/uL (150-450); RBC 4.69 m/uL (4.30-5.90); RDW 14.7 % (11.5-15.5); WBC 7.3 k/uL (3.8-10.6)
[2017-12-05 22:29] LABS: INR 1.2 (<1.2); Partial Thromboplastin Time 28.9 sec (22.0-30.0); Prothrombin Time 11.6 sec (9.0-12.0)
[2017-12-05 22:33] LABS: ALT 26 U/L (21-72); AST 28 U/L (17-59); Albumin 3.8 g/dL (3.5-5.0); Alkaline Phosphatase 139 U/L (38-126); Anion Gap 13 mmol/L; Blood Urea Nitrogen 9 mg/dL (9-20); Calcium 9.1 mg/dL (8.4-10.2); Carbon Dioxide 24 mmol/L (22-30); Chloride 100 mmol/L (98-107); Glucose 140 mg/dL (74-99); Magnesium 1.5 mg/dL (1.6-2.3); Potassium 3.7 mmol/L (3.5-5.1); Sodium 137 mmol/L (137-145); Total Bilirubin 0.7 mg/dL (0.2-1.3); Total Protein 6.7 g/dL (6.3-8.2)
--- NOTE | 2017-12-05 22:43 | XR ---
EXAMINATION TYPE: XR chest 2V DATE OF EXAM: 12/05/2017 COMPARISON: 06/25/2017 HISTORY: Difficulty breathing TECHNIQUE: Frontal and lateral views of the chest are obtained. FINDINGS: Heart and mediastinum are normal. Lungs are clear of infiltrate. There is no heart failure . There is a left x-ray pacemaker with the lead tips in the right ventricle. There are chest leads. IMPRESSION: No active cardiopulmonary disease. No change.
[2017-12-05] MEDS ORDERED: MAGNESIUM SULFATE-D5W PMX 1 GM in DEXTROSE/WATER 1 100ML.BAG IVPB ONE (22:53)
[2017-12-05] MEDS ORDERED: SODIUM CHLORIDE 0.9% 500 ML IV ONE (22:53)
[2017-12-05 22:55] LABS: Creatine Kinase MB 2.4 ng/mL (0.0-2.4); Troponin I 0.015 ng/mL (0.000-0.034)
--- NOTE | 2017-12-05 23:06 | ED ---
General Adult HPI - General Chief complaint: Shortness of Breath Stated complaint: SOB Time Seen by Provider: 12/05/17 21:35 Source: patient, RN notes reviewed, old records reviewed Mode of arrival: wheelchair Limitations: no limitations - History of Present Illness Initial comments: 57 yo male presenting with worsening cough and dyspnea. Patient states he was evaluated by his primary care physician approximately one week ago, started on antibiotics and steroids. He has completed this treatment and has failed to significantly improve. Patient does report fever and chills. Is also had some URI symptoms including rhinorrhea. Cough is dry and nonproductive. Denies any central chest pain. He does have some chest tightness, worse with cough. No abdominal pain nausea vomiting or diaphoresis. - Related Data Home Medications Medication Instructions Recorded Confirmed ALPRAZolam [Xanax] 0.5 mg PO BID PRN 10/23/14 08/04/17 Omeprazole [PriLOSEC] 20 mg PO AC-BRKFST 10/23/14 08/04/17 Dicyclomine [Bentyl] 10 mg PO DAILY 06/23/16 08/04/17 Multivitamins, Thera [Multivitamin 1 tab PO DAILY 06/23/16 08/04/17 (formulary)] Atorvastatin [Lipitor] 20 mg PO HS 11/09/16 08/04/17 metFORMIN HCL [Glucophage] 500 mg PO BID 11/09/16 08/04/17 DULoxetine HCL [Cymbalta] 60 mg PO HS PRN 02/11/17 08/04/17 Promethazine [Phenergan] 25 mg PO DAILY PRN 06/25/17 08/04/17 traMADol HCL [Ultram] 50 mg PO BID PRN 07/19/17 08/04/17 Thiamine [Vitamin B-1] 100 mg PO DAILY 07/24/17 08/04/17 Rivaroxaban [Xarelto] 20 mg PO DAILY 08/04/17 08/04/17 Previous Rx's Medication Instructions Recorded Lisinopril [Prinivil] 10 mg PO DAILY #30 tab 11/10/16 Albuterol Inhaler [Ventolin Hfa 1 puff INHALATION Q6HR PRN #1 08/07/17 Inhaler] inhaler Budesonide-Formot 160-4.5 Mcg 2 puff INHALATION BID #1 inhaler 08/07/17 [Symbicort 160-4.5 Mcg Inhaler] Doxycycline [Vibramycin] 100 mg PO Q12HR 10 Days #20 capsule 08/07/17 predniSONE 10 mg PO DIRECTED 12 Days #24 08/07/17 tab Allergies Allergy/AdvReac Type Severity Reaction Status Date / Time No Known Allergies Allergy Verified 12/05/17 21:22 Review of Systems ROS Statement: Those systems with pertinent positive or pertinent negative responses have been documented in the HPI. ROS Other: All systems not noted in ROS Statement are negative. Past Medical History Past Medical History: COPD, Diabetes Mellitus, GERD/Reflux, Hyperlipidemia, Hypertension, Pulmonary Embolus (PE) Additional Past Medical History / Comment(s): Liver cirrhosis, IBS, Sciatica ddd neuropathy, diabetic neuropathy. third degree heart block. History of Any Multi-Drug Resistant Organisms: None Reported Past Surgical History: Orthopedic Surgery, Pacemaker Additional Past Surgical History / Comment(s): left foot surgery, pacemaker placed 11/09/2016 Past Anesthesia/Blood Transfusion Reactions: No Reported Reaction Type of Cardiac Device: Permanent Pacemaker Device Placement Date:: 11/08/2016 Past Psychological History: Anxiety Smoking Status: Former smoker Past Alcohol Use History: Occasional Past Drug Use History: None Reported - Past Family History Father History Unknown: Yes Family Medical History: No Reported History Mother History Unknown: Yes Family Medical History: Diabetes Mellitus General Exam Limitations: no limitations General appearance: alert, in distress Head exam: Present: atraumatic, normocephalic Eye exam: Present: normal appearance, PERRL ENT exam: Present: mucous membranes dry Neck exam: Present: normal inspection. Absent: tenderness, meningismus Respiratory exam: Present: respiratory distress, wheezes, rhonchi, decreased breath sounds, prolonged expiratory Cardiovascular Exam: Present: regular rate, normal rhythm GI/Abdominal exam: Present: soft. Absent: distended, tenderness, guarding Extremities exam: Present: normal inspection, full ROM. Absent: normal capillary refill, pedal edema Back exam: Present: normal inspection, full ROM Neurological exam: Present: alert, oriented X3, CN II-XII intact. Absent: motor sensory deficit Psychiatric exam: Present: normal affect, normal mood Skin exam: Present: warm, dry, intact. Absent: cyanosis, diaphoretic Course Vital Signs 12/05/17 12/05/17 12/05/17 21:20 21:41 22:12 Temperature 98.6 F Pulse Rate 90 85 Respiratory 26 H 24 16 Rate Blood Pressure 136/87 O2 Sat by Pulse 96 Oximetry 12/05/17 12/05/17 12/05/17 22:22 22:35 22:45 Temperature Pulse Rate 85 84 88 Respiratory 16 16 16 Rate Blood Pressure O2 Sat by Pulse Oximetry 12/05/17 12/05/17 22:54 22:55 Temperature 100.4 F H 100.4 F H Pulse Rate Respiratory Rate Blood Pressure O2 Sat by Pulse Oximetry EKG Findings - EKG Comments: EKG Findings:: EKG: Atrial sensed ventricular paced rhythm, ventricular rate 82 , IA interval 168, QRS duration 186, QTC 509 Medical Decision Making - Medical Decision Making 51 sexual male COPD presenting with cough and dyspnea. Patient is wheezing throughout, decreased air entry bilaterally. Chest x-ray negative for focal pneumonia. Laboratory studies obtained, white blood cell count 7.3, hemoglobin 14.8, R normal, mild lactic acidosis 2.3. Magnesium 1.5 which is replaced. Influenza is negative. After continuous nebulized of-year-old, patient has only significant improved air entry. Remains dyspneic. He will be admitted for treatment of COPD exacerbation. - Lab Data Result diagrams: 12/05/17 20:22 12/05/17 20:22 Lab Results 12/05/17 12/05/17 12/05/17 Range/Units 20:22 20:22 20:22 WBC 7.3 (3.8-10.6) k/uL RBC 4.69 (4.30-5.90) m/uL Hgb 14.8 (13.0-17.5) gm/dL Hct 43.6 (39.0-53.0) % MCV 92.9 (80.0-100.0) fL MCH 31.6 (25.0-35.0) pg MCHC 34.0 (31.0-37.0) g/dL RDW 14.7 (11.5-15.5) % Plt Count 130 L (150-450) k/uL Neutrophils % 73 % Lymphocytes % 13 % Monocytes % 8 % Eosinophils % 2 % Basophils % 1 % Neutrophils # 5.3 (1.3-7.7) k/uL Lymphocytes # 1.0 (1.0-4.8) k/uL Monocytes # 0.6 (0-1.0) k/uL Eosinophils # 0.2 (0-0.7) k/uL Basophils # 0.0 (0-0.2) k/uL PT (9.0-12.0) sec INR (<1.2) APTT (22.0-30.0) sec Sodium 137 (137-145) mmol/L Potassium 3.7 (3.5-5.1) mmol/L Chloride 100 (98-107) mmol/L Carbon Dioxide 24 (22-30) mmol/L Anion Gap 13 mmol/L BUN 9 (9-20) mg/dL Creatinine 0.90 (0.66-1.25) mg/dL Est GFR (CKD-EPI)AfAm >90 (>60 ml/min/1.73 sqM) Est GFR (CKD-EPI)NonAf >90 (>60 ml/min/1.73 sqM) Glucose 140 H (74-99) mg/dL Plasma Lactic Acid Hugo (0.7-2.0) mmol/L Calcium 9.1 (8.4-10.2) mg/dL Magnesium 1.5 L (1.6-2.3) mg/dL Total Bilirubin 0.7 (0.2-1.3) mg/dL AST 28 (17-59) U/L ALT 26 (21-72) U/L Alkaline Phosphatase 139 H (38-126) U/L Total Creatine Kinase 132 (55-170) U/L CK-MB (CK-2) 2.4 (0.0-2.4) ng/mL CK-MB (CK-2) Rel Index 1.8 Troponin I 0.015 (0.000-0.034) ng/mL NT-Pro-B Natriuret Pep pg/mL Total Protein 6.7 (6.3-8.2) g/dL Albumin 3.8 (3.5-5.0) g/dL Influenza Type A RNA (Not Detectd) Influenza Type B (PCR) (Not Detectd) 12/05/17 12/05/17 12/05/17 Range/Units 20:22 20:22 20:22 WBC (3.8-10.6) k/uL RBC (4.30-5.90) m/uL Hgb (13.0-17.5) gm/dL Hct (39.0-53.0) % MCV (80.0-100.0) fL MCH (25.0-35.0) pg MCHC (31.0-37.0) g/dL RDW (11.5-15.5) % Plt Count (150-450) k/uL Neutrophils % % Lymphocytes % % Monocytes % % Eosinophils % % Basophils % % Neutrophils # (1.3-7.7) k/uL Lymphocytes # (1.0-4.8) k/uL Monocytes # (0-1.0) k/uL Eosinophils # (0-0.7) k/uL Basophils # (0-0.2) k/uL PT 11.6 (9.0-12.0) sec INR 1.2 H (<1.2) APTT 28.9 (22.0-30.0) sec Sodium (137-145) mmol/L Potassium (3.5-5.1) mmol/L Chloride (98-107) mmol/L Carbon Dioxide (22-30) mmol/L Anion Gap mmol/L BUN (9-20) mg/dL Creatinine (0.66-1.25) mg/dL Est GFR (CKD-EPI)AfAm (>60 ml/min/1.73 sqM) Est GFR (CKD-EPI)NonAf (>60 ml/min/1.73 sqM) Glucose (74-99) mg/dL Plasma Lactic Acid Hugo 2.3 H* (0.7-2.0) mmol/L Calcium (8.4-10.2) mg/dL Magnesium (1.6-2.3) mg/dL Total Bilirubin (0.2-1.3) mg/dL AST (17-59) U/L ALT (21-72) U/L Alkaline Phosphatase (38-126) U/L Total Creatine Kinase (55-170) U/L CK-MB (CK-2) (0.0-2.4) ng/mL CK-MB (CK-2) Rel Index Troponin I (0.000-0.034) ng/mL NT-Pro-B Natriuret Pep 1000 pg/mL Total Protein (6.3-8.2) g/dL Albumin (3.5-5.0) g/dL Influenza Type A RNA (Not Detectd) Influenza Type B (PCR) (Not Detectd) 12/05/17 Range/Units 22:19 WBC (3.8-10.6) k/uL RBC (4.30-5.90) m/uL Hgb (13.0-17.5) gm/dL Hct (39.0-53.0) % MCV (80.0-100.0) fL MCH (25.0-35.0) pg MCHC (31.0-37.0) g/dL RDW (11.5-15.5) % Plt Count (150-450) k/uL Neutrophils % % Lymphocytes % % Monocytes % % Eosinophils % % Basophils % % Neutrophils # (1.3-7.7) k/uL Lymphocytes # (1.0-4.8) k/uL Monocytes # (0-1.0) k/uL Eosinophils # (0-0.7) k/uL Basophils # (0-0.2) k/uL PT (9.0-12.0) sec INR (<1.2) APTT (22.0-30.0) sec Sodium (137-145) mmol/L Potassium (3.5-5.1) mmol/L Chloride (98-107) mmol/L Carbon Dioxide (22-30) mmol/L Anion Gap mmol/L BUN (9-20) mg/dL Creatinine (0.66-1.25) mg/dL Est GFR (CKD-EPI)AfAm (>60 ml/min/1.73 sqM) Est GFR (CKD-EPI)NonAf (>60 ml/min/1.73 sqM) Glucose (74-99) mg/dL Plasma Lactic Acid Hugo (0.7-2.0) mmol/L Calcium (8.4-10.2) mg/dL Magnesium (1.6-2.3) mg/dL Total Bilirubin (0.2-1.3) mg/dL AST (17-59) U/L ALT (21-72) U/L Alkaline Phosphatase (38-126) U/L Total Creatine Kinase (55-170) U/L CK-MB (CK-2) (0.0-2.4) ng/mL CK-MB (CK-2) Rel Index Troponin I (0.000-0.034) ng/mL NT-Pro-B Natriuret Pep pg/mL Total Protein (6.3-8.2) g/dL Albumin (3.5-5.0) g/dL Influenza Type A RNA Not Detected (Not Detectd) Influenza Type B (PCR) Not Detected (Not Detectd) Critical Care Time Critical Care Time: Yes Total Critical Care Time: 35 Disposition Clinical Impression: Acute exacerbation of chronic obstructive airways disease Disposition: ADMITTED IP TO THIS [facility] Condition: Stable Referrals: Brigido Guajardo DO [Primary Care Provider] - 1-2 days Decision to Admit Reason: Admit from EC Decision Date: 12/05/17 Decision Time: 23:13
[2017-12-05] MEDS ORDERED: IPRATROPIUM-ALBUTEROL 3 ML NEB INHALATION PRN (23:13)
[2017-12-05] MEDS ORDERED: ALBUTEROL NEBULIZED 2.5 MG/3 ML INHALATION PRN (23:15)
[2017-12-05] MEDS ORDERED: KETOROLAC 30 MG/ML 1 ML VIAL IVP STA (23:22)
[2017-12-06] MEDS: methylPREDNISolone SOD SUCCI 125 MG/2 ML VIAL IV SCH ×4 (01:04→17:36)
[2017-12-06 02:03] LABS: Glucose,Whole Blood 222 mg/dL (75-99)
[2017-12-06] MEDS: IPRATROPIUM-ALBUTEROL 3 ML NEB INHALATION SCH ×4 (08:01→18:45)
[2017-12-06] MEDS: LEVOFLOXACIN 500 MG TAB PO SCH (09:14)
[2017-12-06] MEDS: LISINOPRIL 10 MG TAB PO SCH (09:14)
[2017-12-06] MEDS: RIVAROXABAN 20 MG TAB PO SCH (09:15)
[2017-12-06] MEDS: traMADol 50 MG TAB PO PRN (09:19)
[2017-12-06] MEDS: ALPRAZolam 0.5 MG TAB PO PRN ×2 (10:37→21:53)
[2017-12-06 10:47] LABS: Glucose,Whole Blood 228 mg/dL (75-99)
[2017-12-06 11:42] LABS: Glucose,Whole Blood 223 mg/dL (75-99)
[2017-12-06] MEDS ORDERED: SODIUM CHLORIDE 0.65% NASAL SPRAY 44 ML BTL NASAL PRN (12:09)
[2017-12-06] MEDS ORDERED: LIDOCAINE 2% GEL 5 ML TUBE TOPICAL ONE (12:11)
[2017-12-06] MEDS: INSULIN ASPART 100 UNIT/ML 1 ML 10 ML VIAL SQ SCH ×3 (13:39→20:12)
--- NOTE | 2017-12-06 15:13 | P.HPIM ---
History of Present Illness H&P Date: 12/06/17 Chief Complaint: Shortness of breath Patient is a 57-year-old male with a known history of COPD, hypertension, hyperlipidemia, diabetes type 2, alcoholic LIVER cirrhosis and history of third- degree heart block status post pacemaker placement and recent history of pulmonary embolism diagnosed in June 2017 came to the hospital with complaints of worsening shortness of breath and cough. Patient was seen by his PCP recently and was on antibiotics and steroids which he completed cover days back. Patient is not back to his baseline in terms of shortness of breath which made him come to the hospital. Patient otherwise denied any chest pain. Patient does have subjective fever and chills at home. Patient was also having cough without much sputum production. Patient was having chest tightness and cough and lower chest and abdominal pain with coughing. Denied any nausea vomiting. Denied any recent travel or sick contacts at home. Patient is currently taking anticoagulation in the form of xarelto at home. Patient is also complaining of sore throat EKG showed atrial sensor ventricular pacer rhythm Chest x-ray showed no acute cardio pulmonary process. Lactic acidosis 2.3 on admission. Review of Systems Constitutional: Patient does have subjective fever and chills. No generalized weakness or weight loss. Abdomen: Patient denied nausea vomiting and diarrhea and abdominal pain. Cardiovascular: Patient denies any chest pain or short of breath no palpitations. Respiratory: Cough without sputum production and shortness of breath. Neurologic: Patient denied any numbness or tingling headache. Musculoskeletal: Patient denies any complaints of joint swelling or deformity. Skin: Negative Psychiatric: Anxious Endocrine: No heat or cold intolerance. No recent weight gain. Genitourinary: No dysuria or hematuria. All other 14 point ROS negative except the above Past Medical History Past Medical History: COPD, Diabetes Mellitus, GERD/Reflux, Hyperlipidemia, Hypertension, Pulmonary Embolus (PE) Additional Past Medical History / Comment(s): Liver cirrhosis, IBS, Sciatica ddd neuropathy, diabetic neuropathy. third degree heart block. History of Any Multi-Drug Resistant Organisms: None Reported Past Surgical History: Orthopedic Surgery, Pacemaker Additional Past Surgical History / Comment(s): left foot surgery, pacemaker placed 11/09/2016 Past Anesthesia/Blood Transfusion Reactions: No Reported Reaction Type of Cardiac Device: Permanent Pacemaker Device Placement Date:: 11/08/2016 Past Psychological History: Anxiety Smoking Status: Former smoker Past Alcohol Use History: Occasional Additional Past Alcohol Use History / Comment(s): PT STATES HE DRINKS AROUND 14 DRINKS A WEEK. PT STATES HE QUIT smoking a few months ago, smokes e ciggarette but still has a cigarette once in a while. Past Drug Use History: None Reported - Past Family History Father History Unknown: Yes Family Medical History: No Reported History Mother History Unknown: Yes Family Medical History: Diabetes Mellitus Medications and Allergies Home Medications Medication Instructions Recorded Confirmed Type ALPRAZolam [Xanax] 0.5 mg PO BID PRN 10/23/14 12/06/17 History Omeprazole [PriLOSEC] 20 mg PO AC-BRKFST 10/23/14 12/06/17 History Dicyclomine [Bentyl] 10 mg PO DAILY 06/23/16 12/06/17 History Multivitamins, Thera [Multivitamin 1 tab PO DAILY 06/23/16 12/06/17 History (formulary)] Atorvastatin [Lipitor] 20 mg PO HS 11/09/16 12/06/17 History metFORMIN HCL [Glucophage] 500 mg PO BID 11/09/16 12/06/17 History Lisinopril [Prinivil] 10 mg PO DAILY #30 tab 11/10/16 12/06/17 Rx DULoxetine HCL [Cymbalta] 60 mg PO HS 02/11/17 12/06/17 History Promethazine [Phenergan] 25 mg PO DAILY PRN 06/25/17 12/06/17 History traMADol HCL [Ultram] 50 mg PO BID PRN 07/19/17 12/06/17 History Thiamine [Vitamin B-1] 100 mg PO DAILY 07/24/17 12/06/17 History Albuterol Inhaler [Ventolin Hfa 1 puff INHALATION Q6HR PRN #1 08/07/17 12/06/17 Rx Inhaler] inhaler Albuterol Nebulized [Ventolin 2.5 mg INHALATION RT-Q4H PRN 12/06/17 12/06/17 History Nebulized] Budesonide-Formot 160-4.5 Mcg 2 puff INHALATION RT-BID 12/06/17 12/06/17 History [Symbicort 160-4.5 Mcg Inhaler] Ipratropium Nebulized [Atrovent 0.5 mg INHALATION RT-QID 12/06/17 12/06/17 History Nebulized] Rivaroxaban [Xarelto] 15 mg PO DAILY 12/06/17 12/06/17 History Simethicone [Gas-X] 125 mg PO DAILY 12/06/17 12/06/17 History Allergies Allergy/AdvReac Type Severity Reaction Status Date / Time No Known Allergies Allergy Verified 12/06/17 08:21 Physical Exam Vitals: Vital Signs Temp Pulse Pulse Resp BP BP Pulse Ox 12/06/17 10:46 88 12/06/17 10:38 88 12/06/17 08:18 84 12/06/17 08:02 80 12/06/17 07:00 97.7 F 73 16 146/89 94 L 12/06/17 01:08 98.6 F 79 20 136/71 93 L 12/05/17 23:29 100.3 F H 12/05/17 23:19 91 22 142/88 94 L 12/05/17 22:55 100.4 F H 12/05/17 22:54 100.4 F H 12/05/17 22:45 88 16 12/05/17 22:35 84 16 12/05/17 22:22 85 16 12/05/17 22:12 85 16 12/05/17 21:41 24 12/05/17 21:20 98.6 F 90 26 H 136/87 96 Intake and Output 12/05/17 12/06/17 12/06/17 22:59 06:59 14:59 Output Total 200 Balance -200 Output: Urine 200 Other: Weight 121.563 kg PHYSICAL EXAMINATION: Patient is lying in the bed comfortably, no acute distress, awake alert and oriented. Seems very anxious. HEENT: Normocephalic. Neck is supple. Pupils reactive. Nostrils clear. Oral cavity is moist. Ears reveal no drainage. Neck reveals no JVD, carotid bruits, or thyromegaly. CHEST EXAMINATION: Trachea is central. Symmetrical expansion. Bilateral decreased air entry and expiratory wheezing. CARDIAC: Normal S1, S2 with no gallops. No murmurs ABDOMEN: Soft. Bowel sounds normal. No organomegaly. No abdominal bruits. Extremities: reveal no edema. No clubbing or cyanosis Neurologically awake, alert, oriented x3 with well-coordinated movements. No focal deficits noted Skin: No rash or skin lesions. Psychiatric: Cooperative. Nonsuicidal Musculoskeletal: No joint swelling or deformity. Normal range of motion. Results CBC & Chem 7: 12/05/17 20:22 12/05/17 20:22 Labs: Abnormal Lab Results - Last 24 Hours (Table) 12/05/17 12/05/17 12/05/17 Range/Units 20:22 20:22 20:22 Plt Count 130 L (150-450) k/uL INR 1.2 H (<1.2) Glucose 140 H (74-99) mg/dL POC Glucose (mg/dL) (75-99) mg/dL Plasma Lactic Acid Hugo (0.7-2.0) mmol/L Magnesium 1.5 L (1.6-2.3) mg/dL Alkaline Phosphatase 139 H (38-126) U/L 12/05/17 12/06/17 12/06/17 Range/Units 20:22 01:42 10:34 Plt Count (150-450) k/uL INR (<1.2) Glucose (74-99) mg/dL POC Glucose (mg/dL) 222 H 228 H (75-99) mg/dL Plasma Lactic Acid Hugo 2.3 H* (0.7-2.0) mmol/L Magnesium (1.6-2.3) mg/dL Alkaline Phosphatase (38-126) U/L 12/06/17 Range/Units 11:28 Plt Count (150-450) k/uL INR (<1.2) Glucose (74-99) mg/dL POC Glucose (mg/dL) 223 H (75-99) mg/dL Plasma Lactic Acid Hugo (0.7-2.0) mmol/L Magnesium (1.6-2.3) mg/dL Alkaline Phosphatase (38-126) U/L Thrombosis Risk Factor Assmnt - Choose All That Apply Any of the Below Risk Factors Present?: Yes Each Factor Represents 1 point: Abnormal pulmonary function (COPD), Age 41-60 years, Obesity (BMI >25), Sepsis (< 1month) Other Risk Factors: Yes Each Risk Factor Represents 3 Points: Family history of DVT/PE Thrombosis Risk Factor Assessment Total Risk Factor Score: 7 Thrombosis Risk Factor Assessment Level: High Risk Assessment and Plan Assessment: #1 Acute COPD exacerbation. Failed outpatient therapy #2 hypertension #3 hyperlipidemia #4 anxiety #5 alcohol at liver disease/cirrhosis. Patient quit alcohol 6 years ago #6 third-degree AV block status post permanent pacemaker placement #7 history of PE diagnosed in June 2017 Plan: Patient will be continued on IV steroids, breathing treatments and antibiotics in the form of Levaquin. Continue with home medications and in management. Continue with xarelto. Further recommendations based on the clinical course. Time with Patient: Greater than 30
[2017-12-06] MEDS ORDERED: ONDANSETRON 4 MG/2 ML VIAL IVP PRN (15:54)
[2017-12-06 17:00] LABS: Glucose,Whole Blood 215 mg/dL (75-99)
[2017-12-06] MEDS ORDERED: INSULIN ASPART 100 UNIT/ML 1 ML 10 ML VIAL SQ SCH (17:30)
[2017-12-06] MEDS: SIMETHICONE 80 MG CHEWABLE PO SCH (17:36)
[2017-12-06] MEDS: SYMBICORT 160-4.5 MCG INHALER INHALATION SCH (18:45)
[2017-12-06 19:42] LABS: Hemoglobin A1C 5.7 % (4.0-6.0)
[2017-12-06 20:03] LABS: Glucose,Whole Blood 208 mg/dL (75-99)
[2017-12-06] MEDS: ATORVASTATIN 20 MG TAB PO SCH (20:12)
[2017-12-06] MEDS: DULoxetine HCL 60 MG CAPSULE.DR PO SCH (20:12)
[2017-12-06] MEDS: guaiFENesin-DM 100-10MG/5ML 10 ML CUP PO PRN (21:53)
[2017-12-07] MEDS: methylPREDNISolone SOD SUCCI 125 MG/2 ML VIAL IV SCH ×2 (00:51→05:55)
[2017-12-07] MEDS: traMADol 50 MG TAB PO PRN ×2 (00:54→23:15)
[2017-12-07] MEDS: guaiFENesin-DM 100-10MG/5ML 10 ML CUP PO PRN (04:14)
[2017-12-07 07:03] LABS: Glucose,Whole Blood 175 mg/dL (75-99)
[2017-12-07] MEDS: RIVAROXABAN 20 MG TAB PO SCH (07:27)
[2017-12-07] MEDS: LEVOFLOXACIN 500 MG TAB PO SCH (07:27)
[2017-12-07] MEDS: INSULIN ASPART 100 UNIT/ML 1 ML 10 ML VIAL SQ SCH ×4 (07:27→20:43)
[2017-12-07] MEDS: LISINOPRIL 10 MG TAB PO SCH (07:27)
[2017-12-07] MEDS: PANTOPRAZOLE 40 MG TABLET PO SCH (07:27)
[2017-12-07] MEDS: SIMETHICONE 80 MG CHEWABLE PO SCH (07:51)
[2017-12-07] MEDS: SYMBICORT 160-4.5 MCG INHALER INHALATION SCH ×2 (07:54→20:19)
[2017-12-07] MEDS: IPRATROPIUM-ALBUTEROL 3 ML NEB INHALATION SCH ×4 (07:54→20:20)
[2017-12-07] MEDS: ALPRAZolam 0.5 MG TAB PO PRN ×2 (10:48→21:30)
[2017-12-07 11:52] LABS: Glucose,Whole Blood 176 mg/dL (75-99)
[2017-12-07] MEDS: THIAMINE 100 MG TAB PO SCH (12:27)
[2017-12-07] MEDS: MULTIVITAMINS, THERA 1 EACH TAB PO SCH (12:27)
[2017-12-07] MEDS: guaiFENesin-DM 600/30MG 1 EACH TAB.ER.12H PO PRN (14:10)
--- NOTE | 2017-12-07 14:23 | P.PN ---
Subjective 57-year-old admitted for COPD exacerbation, feels much better but may need 1 more day of hospitalization get short of breath upon minimal ambulation. Patient is coughing but unable to bring up anything is requesting Mucinex which was ordered Constitutional: Denied any fatigue denied any fever. Cardio vascular: denied any chest pain, palpitations Gastrointestinal denied any nausea vomiting Pulmonary: As mentioned in HPI Neurologic denied any new focal deficits Objective - Vital Signs Vital signs: Vital Signs Temp 97.3 F L 12/07/17 07:00 Pulse 88 12/07/17 11:31 Resp 16 12/07/17 08:00 BP 145/87 12/07/17 07:00 Pulse Ox 95 12/07/17 07:00 Intake & Output 12/06/17 12/07/17 12/07/17 18:59 06:59 18:59 Intake Total 480 480 Balance 480 480 Intake: Oral 480 480 Other: Voiding Method Bedside Commode Bedside Commode Toilet # Voids 3 2 - Exam PHYSICAL EXAMINATION: GENERAL: The patient is alert and oriented x3, not in any acute distress. Well developed, well nourished. HEENT: Pupils are round and equally reacting to light. EOMI. No scleral icterus. No conjunctival pallor. Normocephalic, atraumatic. No pharyngeal erythema. No thyromegaly. CARDIOVASCULAR: S1 and S2 present. No murmurs, rubs, or gallops. PULMONARY: Minimally decreased air entry into bilateral lung contreras no significant wheezing was appreciated. ABDOMEN: Soft, nontender, nondistended, normoactive bowel sounds. No palpable organomegaly. MUSCULOSKELETAL: No joint swelling or deformity. EXTREMITIES: No cyanosis, clubbing, or pedal edema. NEUROLOGICAL: Gross neurological examination did not reveal any focal deficits. SKIN: No rashes. - Labs CBC & Chem 7: 12/05/17 20:22 12/05/17 20:22 Labs: Abnormal Lab Results - Last 24 Hours (Table) 12/06/17 12/06/17 12/07/17 Range/Units 16:54 19:59 07:03 POC Glucose (mg/dL) 215 H 208 H 175 H (75-99) mg/dL 12/07/17 Range/Units 11:49 POC Glucose (mg/dL) 176 H (75-99) mg/dL Microbiology - Last 24 Hours (Table) 12/05/17 20:22 Blood Culture - Preliminary Blood No Growth after 24 hours Assessment and Plan Plan: #1 Acute COPD exacerbation. 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 Patient quit alcohol 6 years ago #6 third-degree AV block status post permanent pacemaker placement #7 history of PE diagnosed in June 2017 patient is presently on xarelto
[2017-12-07 17:27] LABS: Glucose,Whole Blood 152 mg/dL (75-99)
[2017-12-07 20:17] LABS: Glucose,Whole Blood 202 mg/dL (75-99)
[2017-12-07] MEDS: ATORVASTATIN 20 MG TAB PO SCH (20:43)
[2017-12-07] MEDS: DULoxetine HCL 60 MG CAPSULE.DR PO SCH (20:43)
[2017-12-07] MEDS: methylPREDNISolone SOD SUCCI 40 MG/ML 1 ML VIAL IV SCH (20:43)
[2017-12-07] MEDS: NICOTINE POLACRILEX 2 MG GUM BUCCAL PRN (20:47)
[2017-12-08] MEDS: guaiFENesin-DM 600/30MG 1 EACH TAB.ER.12H PO PRN (02:51)
[2017-12-08 06:42] LABS: Glucose,Whole Blood 225 mg/dL (75-99)
[2017-12-08 07:26] VITALS: BP 145/90; RESP 18; TEMP 97.3
[2017-12-08 07:26] LABS: HCT 38.9 % (39.0-53.0); HGB 12.9 gm/dL (13.0-17.5); MCH 31.1 pg (25.0-35.0); MCHC 33.1 g/dL (31.0-37.0); Mean Platelet Volume 7.9; Platelet Count 122 k/uL (150-450); RBC 4.14 m/uL (4.30-5.90); RDW 14.7 % (11.5-15.5); WBC 8.1 k/uL (3.8-10.6)
[2017-12-08] MEDS: SYMBICORT 160-4.5 MCG INHALER INHALATION SCH (07:34)
[2017-12-08] MEDS: IPRATROPIUM-ALBUTEROL 3 ML NEB INHALATION SCH ×2 (07:34→12:23)
[2017-12-08] MEDS: INSULIN ASPART 100 UNIT/ML 1 ML 10 ML VIAL SQ SCH ×2 (07:39→12:28)
[2017-12-08] MEDS: PANTOPRAZOLE 40 MG TABLET PO SCH (07:39)
[2017-12-08 07:40] LABS: Anion Gap 11 mmol/L; Blood Urea Nitrogen 22 mg/dL (9-20); Calcium 8.9 mg/dL (8.4-10.2); Carbon Dioxide 24 mmol/L (22-30); Chloride 102 mmol/L (98-107); Glucose 215 mg/dL (74-99); Potassium 4.6 mmol/L (3.5-5.1); Sodium 137 mmol/L (137-145)
[2017-12-08] MEDS: LISINOPRIL 10 MG TAB PO SCH (08:18)
[2017-12-08] MEDS: SIMETHICONE 80 MG CHEWABLE PO SCH (08:18)
[2017-12-08] MEDS: methylPREDNISolone SOD SUCCI 40 MG/ML 1 ML VIAL IV SCH (08:18)
[2017-12-08] MEDS: RIVAROXABAN 20 MG TAB PO SCH (08:18)
[2017-12-08] MEDS: LEVOFLOXACIN 500 MG TAB PO SCH (08:18)
[2017-12-08] MEDS: NICOTINE POLACRILEX 2 MG GUM BUCCAL PRN (08:46)
[2017-12-08 11:23] LABS: Glucose,Whole Blood 166 mg/dL (75-99)
[2017-12-08] MEDS: MULTIVITAMINS, THERA 1 EACH TAB PO SCH (12:15)
[2017-12-08] MEDS: THIAMINE 100 MG TAB PO SCH (12:16)
[2017-12-08 12:27] VITALS: PULSE 76
--- NOTE | 2017-12-08 16:36 | P.DS ---
Providers Date of admission: 12/05/17 23:15 Expected date of discharge: 12/08/17 Attending physician: Tiffanie Núñez Primary care physician: [facility] Course: Final Diagnoses: #1 Acute COPD exacerbation. 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 Patient quit alcohol 6 years ago #6 third-degree AV block status post permanent pacemaker placement #7 history of PE diagnosed in June 2017 patient is presently on [facility] course:this is [id number] admitted for COPD exacerbation. maintained on nebulized bronchodilators, antibiotics, steroids and Mucinex. Significant clinical improvement. Patient is being discharged home in a stable condition with guarded prognosis. PHYSICAL EXAMINATION: GENERAL: The patient is alert and oriented x3, not in any acute distress. Well developed, well nourished. HEENT: Pupils are round and equally reacting to light. EOMI. No scleral icterus. No conjunctival pallor. Normocephalic, atraumatic. No pharyngeal erythema. No thyromegaly. CARDIOVASCULAR: S1 and S2 present. No murmurs, rubs, or gallops. PULMONARY: Minimally decreased air entry into bilateral lung contreras no significant wheezing was appreciated. ABDOMEN: Soft, nontender, nondistended, normoactive bowel sounds. No palpable organomegaly. MUSCULOSKELETAL: No joint swelling or deformity. EXTREMITIES: No cyanosis, clubbing, or pedal edema. NEUROLOGICAL: Gross neurological examination did not reveal any focal deficits. SKIN: No rashes. The impression and plan of care has been dictated as directed. : I performed a history and examination of this patient, discussed the same with the dictator. I agree with the dictator's note ,documented as a scribe. Any additional findings or plans will be noted. time taken: 35 minutes Patient Condition at Discharge: Stable Plan - Discharge Summary Discharge Rx Participant: No New Discharge Prescriptions: New guaiFENesin-DM 600/30MG [Mucinex Dm] 1 each PO Q12HR PRN tab.er.12h PRN Reason: Cough Levofloxacin [Levaquin] 500 mg PO DAILY #5 tab Nicotine Polacrilex [Nicorette] 2 mg BUCCAL Q4HR PRN gum PRN Reason: Nicotine Cravings predniSONE 10 mg PO DIRECTED #30 tab Sodium Chloride 0.65% Nasal [Deep Sea (Saline)] 2 spray NASAL QID PRN spray PRN Reason: Congestion Continue Omeprazole [PriLOSEC] 20 mg PO AC-BRKFST ALPRAZolam [Xanax] 0.5 mg PO BID PRN PRN Reason: Anxiety Multivitamins, Thera [Multivitamin (formulary)] 1 tab PO DAILY Dicyclomine [Bentyl] 10 mg PO DAILY metFORMIN HCL [Glucophage] 500 mg PO BID Atorvastatin [Lipitor] 20 mg PO HS Lisinopril [Prinivil] 10 mg PO DAILY #30 tab DULoxetine HCL [Cymbalta] 60 mg PO HS Promethazine [Phenergan] 25 mg PO DAILY PRN PRN Reason: Nausea And Vomiting traMADol HCL [Ultram] 50 mg PO BID PRN PRN Reason: Pain Thiamine [Vitamin B-1] 100 mg PO DAILY Albuterol Inhaler [Ventolin Hfa Inhaler] 1 puff INHALATION Q6HR PRN #1 inhaler PRN Reason: Shortness Of Breath Albuterol Nebulized [Ventolin Nebulized] 2.5 mg INHALATION RT-Q4H PRN PRN Reason: Shortness Of Breath Simethicone [Gas-X] 125 mg PO DAILY Budesonide-Formot 160-4.5 Mcg [Symbicort 160-4.5 Mcg Inhaler] 2 puff INHALATION RT-BID Rivaroxaban [Xarelto] 15 mg PO DAILY Ipratropium Nebulized [Atrovent Nebulized] 0.5 mg INHALATION RT-QID #0 Discharge Medication List ALPRAZolam [Xanax] 0.5 mg PO BID PRN 10/23/14 [History] Omeprazole [PriLOSEC] 20 mg PO AC-BRKFST 10/23/14 [History] Dicyclomine [Bentyl] 10 mg PO DAILY 06/23/16 [History] Multivitamins, Thera [Multivitamin (formulary)] 1 tab PO DAILY 06/23/16 [History ] Atorvastatin [Lipitor] 20 mg PO HS 11/09/16 [History] metFORMIN HCL [Glucophage] 500 mg PO BID 11/09/16 [History] Lisinopril [Prinivil] 10 mg PO DAILY #30 tab 11/10/16 [Rx] DULoxetine HCL [Cymbalta] 60 mg PO HS 02/11/17 [History] Promethazine [Phenergan] 25 mg PO DAILY PRN 06/25/17 [History] traMADol HCL [Ultram] 50 mg PO BID PRN 07/19/17 [History] Thiamine [Vitamin B-1] 100 mg PO DAILY 07/24/17 [History] Albuterol Inhaler [Ventolin Hfa Inhaler] 1 puff INHALATION Q6HR PRN #1 inhaler 08/07/17 [Rx] Albuterol Nebulized [Ventolin Nebulized] 2.5 mg INHALATION RT-Q4H PRN 12/06/17 [ History] Budesonide-Formot 160-4.5 Mcg [Symbicort 160-4.5 Mcg Inhaler] 2 puff INHALATION RT-BID 12/06/17 [History] Rivaroxaban [Xarelto] 15 mg PO DAILY 12/06/17 [History] Simethicone [Gas-X] 125 mg PO DAILY 12/06/17 [History] Ipratropium Nebulized [Atrovent Nebulized] 0.5 mg INHALATION RT-QID #0 12/08/17 [Rx] Levofloxacin [Levaquin] 500 mg PO DAILY #5 tab 12/08/17 [Rx] Nicotine Polacrilex [Nicorette] 2 mg BUCCAL Q4HR PRN gum 12/08/17 [Rx] Sodium Chloride 0.65% Nasal [Deep Sea (Saline)] 2 spray NASAL QID PRN spray 11/22 [Rx] guaiFENesin-DM 600/30MG [Mucinex Dm] 1 each PO Q12HR PRN tab.er.12h 12/08/17 [ Rx] predniSONE 10 mg PO DIRECTED #30 tab 12/08/17 [Rx] Follow up Appointment(s)/Referral(s): Brigido Guajardo DO [Primary Care Provider] - 3 Days Ambulatory/Diagnostic Orders: Complete Blood Count w/diff [LAB.AMB] Time Frame: 3 Days, Location: Determined By Patient Patient Instructions/Handouts: Prednisone (By mouth), Levofloxacin (By mouth) Discharge Disposition: HOME SELF-CARE
== END 2017-12-08 14:24 | disposition home or self-care (01) | DRG 191 ==
LOC: EC 21:14 → 5MS5E 23:15
PROVIDERS: ADMIT Hospitalist; ATTEND Hospitalist
DX: J44.1 Chronic obstructive pulmonary disease with (acute) exacerbation (principal); E87.2 Acidosis; E11.40 Type 2 diabetes mellitus with diabetic neuropathy, unspecified; K70.30 Alcoholic cirrhosis of liver without ascites; E78.5 Hyperlipidemia, unspecified; F41.9 Anxiety disorder, unspecified; I10 Essential (primary) hypertension; K21.9 Gastro-esophageal reflux disease without esophagitis; K58.9 Irritable bowel syndrome, unspecified; Z79.01 Long term (current) use of anticoagulants; Z79.51 Long term (current) use of inhaled steroids; Z79.52 Long term (current) use of systemic steroids; Z79.899 Other long term (current) drug therapy; Z83.3 Family history of diabetes mellitus; Z86.711 Personal history of pulmonary embolism; Z95.0 Presence of cardiac pacemaker; F17.290 Nicotine dependence, other tobacco product, uncomplicated; Z79.84 Long term (current) use of oral hypoglycemic drugs
CPT/HCPCS: 36415; 71046; 80048; 80053; 82550; 82553; 83036; 83605; 83735; 83880; 84484; 85025; 85027; 85610; 85730; 87040; 87502; 93005; 94640; 94644; 94760; 96365; 96368; 96375; 99291

== ENCOUNTER 2018-03-29 12:34 | Emergency (ER) | payer MEDICARE ==
[2018-03-29 12:47] VITALS: RESP 18
[2018-03-29] MEDS ORDERED: SODIUM CHLORIDE 0.9% 1,000 ML IV STA (13:02)
[2018-03-29] MEDS ORDERED: ONDANSETRON 4 MG/2 ML VIAL IVP STA (13:02)
--- NOTE | 2018-03-29 13:06 | ED ---
Abdominal Pain HPI - General Chief Complaint: Abdominal Pain Stated Complaint: Abd Pain Time Seen by Provider: 03/29/18 12:50 Source: patient, RN notes reviewed Mode of arrival: ambulatory Limitations: no limitations - History of Present Illness Initial Comments: 57-year-old male presents emergency Department with chief complaint of abdominal discomfort. He states she's been having on and off it's over the last month. He states that he was started on a new medication which cause constipation. He states then he had to take magnesium citrate and lactulose states that he was regular one week ago but states now his been having increased abdominal pain and bloating. He states he felt that he ate too much last night and it vomiting states he woke up today still feeling nauseated. Denies any chest pain or shortness of breath. Patient denies any fever, chills , dysuria, hematuria. Patient states she's had no prior abdominal surgeries she 's has had paracentesis 4 times in the past secondary to liver disease but states this was several years ago. - Related Data Home Medications Medication Instructions Recorded Confirmed ALPRAZolam [Xanax] 0.5 mg PO DAILY 10/23/14 03/29/18 Omeprazole [PriLOSEC] 20 mg PO AC-BRKFST 10/23/14 03/29/18 Dicyclomine [Bentyl] 10 mg PO DAILY 06/23/16 03/29/18 Multivitamins, Thera [Multivitamin 1 tab PO DAILY 06/23/16 03/29/18 (formulary)] Atorvastatin [Lipitor] 20 mg PO HS 11/09/16 03/29/18 metFORMIN HCL [Glucophage] 500 mg PO BID 11/09/16 03/29/18 Promethazine [Phenergan] 25 mg PO DAILY 06/25/17 03/29/18 traMADol HCL [Ultram] 50 mg PO BID 07/19/17 03/29/18 Thiamine [Vitamin B-1] 100 mg PO DAILY 07/24/17 03/29/18 Albuterol Nebulized [Ventolin 2.5 mg INHALATION RT-Q4H PRN 12/06/17 03/29/18 Nebulized] Budesonide-Formot 160-4.5 Mcg 2 puff INHALATION RT-BID 12/06/17 03/29/18 [Symbicort 160-4.5 Mcg Inhaler] Rivaroxaban [Xarelto] 15 mg PO DAILY 12/06/17 03/29/18 Simethicone [Gas-X] 125 mg PO DAILY 12/06/17 03/29/18 Albuterol Inhaler [Ventolin Hfa 1 puff INHALATION RT-QID PRN 03/29/18 03/29/18 Inhaler] Previous Rx's Medication Instructions Recorded Lisinopril [Prinivil] 10 mg PO DAILY #30 tab 11/10/16 Ipratropium Nebulized [Atrovent 0.5 mg INHALATION RT-QID #0 12/08/17 Nebulized] Allergies Allergy/AdvReac Type Severity Reaction Status Date / Time No Known Allergies Allergy Verified 03/29/18 13:25 Review of Systems ROS Statement: Those systems with pertinent positive or pertinent negative responses have been documented in the HPI. ROS Other: All systems not noted in ROS Statement are negative. Past Medical History Past Medical History: COPD, Diabetes Mellitus, GERD/Reflux, Hyperlipidemia, Hypertension, Pulmonary Embolus (PE) Additional Past Medical History / Comment(s): Liver cirrhosis, IBS, Sciatica ddd neuropathy, diabetic neuropathy. third degree heart block. History of Any Multi-Drug Resistant Organisms: None Reported Past Surgical History: Orthopedic Surgery, Pacemaker Additional Past Surgical History / Comment(s): left foot surgery, pacemaker placed 11/09/2016 Past Anesthesia/Blood Transfusion Reactions: No Reported Reaction Type of Cardiac Device: Permanent Pacemaker Device Placement Date:: 11/08/2016 Past Psychological History: Anxiety Smoking Status: Current some day smoker Past Alcohol Use History: Occasional Past Drug Use History: None Reported - Past Family History Father History Unknown: Yes Family Medical History: No Reported History Mother History Unknown: Yes Family Medical History: Diabetes Mellitus General Exam General appearance: alert, in no apparent distress Head exam: Present: atraumatic, normocephalic, normal inspection Respiratory exam: Present: normal lung sounds bilaterally. Absent: respiratory distress, wheezes, rales, rhonchi, stridor Cardiovascular Exam: Present: regular rate, normal rhythm, normal heart sounds. Absent: systolic murmur, diastolic murmur, rubs, gallop, clicks GI/Abdominal exam: Present: soft, tenderness (Mild mid to epigastric tenderness) , normal bowel sounds. Absent: distended, guarding, rebound, rigid Back exam: Absent: CVA tenderness (R), CVA tenderness (L) Course Vital Signs 03/29/18 12:42 Temperature 98.2 F Pulse Rate 82 Respiratory 18 Rate Blood Pressure 164/107 O2 Sat by Pulse 97 Oximetry Medical Decision Making - Medical Decision Making 57-year-old male presented for multiple abdominal complaints. Patient has normal limits normal x-ray. Patient feels improved after fluids not the Zofran. Patient will follow-up outpatient return parameters were discussed. - Lab Data Result diagrams: 03/29/18 13:14 03/29/18 13:14 Lab Results 03/29/18 03/29/18 03/29/18 Range/Units 12:55 13:14 13:14 WBC 6.0 (3.8-10.6) k/uL RBC 4.80 (4.30-5.90) m/uL Hgb 15.0 (13.0-17.5) gm/dL Hct 44.7 (39.0-53.0) % MCV 93.1 (80.0-100.0) fL MCH 31.2 (25.0-35.0) pg MCHC 33.5 (31.0-37.0) g/dL RDW 13.7 (11.5-15.5) % Plt Count 163 (150-450) k/uL Neutrophils % 61 % Lymphocytes % 22 % Monocytes % 7 % Eosinophils % 7 % Basophils % 1 % Neutrophils # 3.7 (1.3-7.7) k/uL Lymphocytes # 1.3 (1.0-4.8) k/uL Monocytes # 0.4 (0-1.0) k/uL Eosinophils # 0.4 (0-0.7) k/uL Basophils # 0.0 (0-0.2) k/uL Sodium 139 (137-145) mmol/L Potassium 4.1 (3.5-5.1) mmol/L Chloride 106 (98-107) mmol/L Carbon Dioxide 27 (22-30) mmol/L Anion Gap 6 mmol/L BUN 9 (9-20) mg/dL Creatinine 0.90 (0.66-1.25) mg/dL Est GFR (CKD-EPI)AfAm >90 (>60 ml/min/1.73 sqM) Est GFR (CKD-EPI)NonAf >90 (>60 ml/min/1.73 sqM) Glucose 107 H (74-99) mg/dL Calcium 9.0 (8.4-10.2) mg/dL Total Bilirubin 0.6 (0.2-1.3) mg/dL AST 23 (17-59) U/L ALT 28 (21-72) U/L Alkaline Phosphatase 97 (38-126) U/L Total Protein 6.4 (6.3-8.2) g/dL Albumin 3.8 (3.5-5.0) g/dL Amylase 62 (30-110) U/L Lipase 58 (23-300) U/L Urine Color Yellow Urine Appearance Cloudy (Clear) Urine pH 7.5 (5.0-8.0) Ur Specific [place] 1.013 (1.001-1.035) Urine Protein Trace H (Negative) Urine Glucose (UA) Negative (Negative) Urine Ketones Negative (Negative) Urine Blood Negative (Negative) Urine Nitrite Negative (Negative) Urine Bilirubin Negative (Negative) Urine Urobilinogen <2.0 (<2.0) mg/dL Ur Leukocyte Esterase Negative (Negative) Ur Squamous Epith Cells <1 (0-4) /hpf Amorphous Sediment Few H (None) /hpf Disposition Clinical Impression: Abdominal pain, IBS (irritable bowel syndrome) Disposition: HOME SELF-CARE Condition: Stable Instructions: Abdominal Pain (ED) Additional Instructions: Please return to the Emergency Department if symptoms worsen or any other concerns. Is patient prescribed a controlled substance at d/c from ED?: No Referrals: Brigido Guajardo DO [Primary Care Provider] - 1-2 days Kwadwo Burns MD [STAFF PHYSICIAN] - 1-2 days Time of Disposition: 14:19
[2018-03-29 13:35] LABS: Amorphous Sediment,Urine Few /hpf; Appearance,Urine Cloudy (Clear); Bilirubin,Urine Negative (Negative); Blood,Urine Negative (Negative); Color,Urine Yellow; Glucose,Urine (UA) Negative (Negative); Ketones,Urine Negative (Negative); Leukocyte Esterase,Urine Negative (Negative); Nitrite,Urine Negative (Negative); PH, Urine 7.5 (5.0-8.0); Protein,Urine Trace (Negative); Specific Gravity,Urine 1.013 (1.001-1.035); Squamous Epithelial Cell,Urine <1 /hpf (0-4); Urobilinogen,Urine <2.0 mg/dL (<2.0)
[2018-03-29 13:40] LABS: ALT 28 U/L (21-72); AST 23 U/L (17-59); Albumin 3.8 g/dL (3.5-5.0); Alkaline Phosphatase 97 U/L (38-126); Amylase 62 U/L (30-110); Anion Gap 6 mmol/L; Blood Urea Nitrogen 9 mg/dL (9-20); Carbon Dioxide 27 mmol/L (22-30); Chloride 106 mmol/L (98-107); Glucose 107 mg/dL (74-99); Lipase 58 U/L (23-300); Potassium 4.1 mmol/L (3.5-5.1); Sodium 139 mmol/L (137-145); Total Bilirubin 0.6 mg/dL (0.2-1.3); Total Protein 6.4 g/dL (6.3-8.2)
[2018-03-29 13:42] LABS: Basophils % (A) 1 %; Eosinophils # (A) 0.4 k/uL (0-0.7); Eosinophils % (A) 7 %; HCT 44.7 % (39.0-53.0); Lymphocytes # (A) 1.3 k/uL (1.0-4.8); Lymphocytes % (A) 22 %; MCH 31.2 pg (25.0-35.0); MCHC 33.5 g/dL (31.0-37.0); MCV 93.1 fL (80.0-100.0); Mean Platelet Volume 7.2; Monocytes # (A) 0.4 k/uL (0-1.0); Monocytes % (A) 7 %; Neutrophils # (A) 3.7 k/uL (1.3-7.7); Neutrophils % (A) 61 %; Platelet Count 163 k/uL (150-450); RDW 13.7 % (11.5-15.5)
--- NOTE | 2018-03-29 14:03 | XR ---
EXAMINATION TYPE: XR KUB DATE OF EXAM: 03/29/2018 COMPARISON: NONE HISTORY: Pain TECHNIQUE: One view abdominal series FINDINGS: The osseous structures are intact. The bowel gas pattern is nonspecific. Lung bases are clear. Card iac leads are noted. Arthropathy of the hips noted. IMPRESSION: 1. Nonspecific abdomen.
[2018-03-29 14:35] VITALS: BP 151/101; PULSE 56; TEMP 98.1
== END 2018-03-29 14:35 | disposition home or self-care (01) ==
LOC: EC 12:34
DX: K58.9 Irritable bowel syndrome, unspecified (principal); K59.00 Constipation, unspecified; J44.9 Chronic obstructive pulmonary disease, unspecified; E11.40 Type 2 diabetes mellitus with diabetic neuropathy, unspecified; E78.5 Hyperlipidemia, unspecified; I10 Essential (primary) hypertension; I44.2 Atrioventricular block, complete; K21.9 Gastro-esophageal reflux disease without esophagitis; F41.9 Anxiety disorder, unspecified; F17.200 Nicotine dependence, unspecified, uncomplicated; Z79.01 Long term (current) use of anticoagulants; Z79.51 Long term (current) use of inhaled steroids; Z79.84 Long term (current) use of oral hypoglycemic drugs; Z79.891 Long term (current) use of opiate analgesic; Z79.899 Other long term (current) drug therapy; Z86.711 Personal history of pulmonary embolism
CPT/HCPCS: 36415; 80053; 82150; 83690; 85025; 81001; 74018; 99284; 96374; 96361; J2405

== ENCOUNTER 2018-04-24 17:37 | Emergency (ER) | payer MEDICARE ==
[2018-04-24 19:18] VITALS: RESP 18
--- NOTE | 2018-04-24 19:35 | ED ---
General Adult HPI - General Chief complaint: Dizziness Stated complaint: Dizziness Source: patient, EMS Mode of arrival: EMS Limitations: no limitations - History of Present Illness Initial comments: Dictation was produced using [employer] dictation software. please excuse any grammatical, word or spelling errors. Chief Complaint: 57-year-old male past medical history of pacemaker, COPD, diabetes, PE on Xarelto presents with presyncope. History of Present Illness: Patient states over the past 3 days he has been feeling presyncopal. Patient states that he is currently on Xarelto for pulmonary embolus. Patient stopped his Xarelto 4 or 5 days ago secondary to scheduled colonoscopy. He is supposed since colonoscopy performed in a couple days. Patient states he's been feeling lightheaded whenever he stands up. Patient denies any constitutional symptoms no shortness of breath, chest pain or abdominal pain. Chart review shows that patient has a past past medical history of orthostasis. Medications reviewed. He is not on any beta blockers or calcium channel blockers. The ROS documented in this emergency department record has been reviewed and confirmed by me. Those systems with pertinent positive or negative responses have been documented in the HPI. All other systems are other negative and/or noncontributory. - Related Data Home Medications Medication Instructions Recorded Confirmed ALPRAZolam [Xanax] 0.5 mg PO DAILY 10/23/14 04/24/18 Omeprazole [PriLOSEC] 20 mg PO AC-BRKFST 10/23/14 04/24/18 Dicyclomine [Bentyl] 10 mg PO DAILY 06/23/16 04/24/18 Multivitamins, Thera [Multivitamin 1 tab PO DIRECTED 06/23/16 04/24/18 (formulary)] Atorvastatin [Lipitor] 20 mg PO HS 11/09/16 04/24/18 metFORMIN HCL [Glucophage] 500 mg PO BID 11/09/16 04/24/18 Promethazine [Phenergan] 25 mg PO DAILY 06/25/17 04/24/18 traMADol HCL [Ultram] 50 mg PO BID 07/19/17 04/24/18 Thiamine [Vitamin B-1] 100 mg PO DAILY 07/24/17 04/24/18 Albuterol Nebulized [Ventolin 2.5 mg INHALATION RT-Q4H PRN 12/06/17 04/24/18 Nebulized] Budesonide-Formot 160-4.5 Mcg 2 puff INHALATION RT-BID 12/06/17 04/24/18 [Symbicort 160-4.5 Mcg Inhaler] Rivaroxaban [Xarelto] 15 mg PO DIRECTED 12/06/17 04/24/18 Simethicone [Gas-X] 125 mg PO DAILY 12/06/17 04/24/18 Albuterol Inhaler [Ventolin Hfa 1 puff INHALATION RT-QID PRN 03/29/18 04/24/18 Inhaler] Previous Rx's Medication Instructions Recorded Lisinopril [Prinivil] 10 mg PO DAILY #30 tab 11/10/16 Ipratropium Nebulized [Atrovent 0.5 mg INHALATION RT-QID #0 12/08/17 Nebulized] Allergies Allergy/AdvReac Type Severity Reaction Status Date / Time No Known Allergies Allergy Verified 04/24/18 17:55 Review of Systems ROS Statement: Those systems with pertinent positive or pertinent negative responses have been documented in the HPI. ROS Other: All systems not noted in ROS Statement are negative. Past Medical History Past Medical History: COPD, Diabetes Mellitus, GERD/Reflux, Hyperlipidemia, Hypertension, Pulmonary Embolus (PE) Additional Past Medical History / Comment(s): Liver cirrhosis, IBS, Sciatica ddd neuropathy, diabetic neuropathy. third degree heart block. History of Any Multi-Drug Resistant Organisms: None Reported Past Surgical History: Orthopedic Surgery, Pacemaker Additional Past Surgical History / Comment(s): left foot surgery, pacemaker placed 11/09/2016, COLONOSCOPY scheduled for 05/27/2018. Past Anesthesia/Blood Transfusion Reactions: No Reported Reaction Type of Cardiac Device: Permanent Pacemaker Device Placement Date:: 11/08/2016 Past Psychological History: Anxiety Smoking Status: Current every day smoker Past Alcohol Use History: Occasional Past Drug Use History: None Reported - Past Family History Father History Unknown: Yes Family Medical History: No Reported History Mother History Unknown: Yes Family Medical History: Diabetes Mellitus General Exam - General Exam Comments Initial Comments: PHYSICAL EXAM: General Impression: Alert and oriented x3, not in acute distress HEENT: Normocephalic atraumatic, extra-ocular movements intact, pupils equal and reactive to light bilaterally, mucous membranes moist. Cardiovascular: Heart regular rate and rhythm, S1&S2 audible, no murmurs, rubs or gallops Chest: Mild rhonchi to bilateral lung contreras Abdomen: Bowel sounds present, abdomen soft, non-tender, non-distended, no organomegaly Musculoskeletal: Pulses present and equal in all extremities, no peripheral edema Motor: Power 5/5 bilaterally, no focal deficits noted Neurological: CN II-XII grossly intact, no focal motor or sensory deficits noted Skin: Intact with no visualized rashes Psych: Normal affect and mood Limitations: no limitations Course Vital Signs 04/24/18 04/24/18 04/24/18 17:52 19:15 20:43 Temperature 100.5 F H 97.7 F Pulse Rate 81 70 60 Respiratory 16 18 18 Rate Blood Pressure 148/81 139/96 152/97 O2 Sat by Pulse 99 97 98 Oximetry Medical Decision Making - Medical Decision Making ED course: 57-year-old male with multiple comorbidities presents with chief complaint of presyncope vital signs upon arrival shows temperature 100.5, rest of vital signs within normal limits. Laboratory evaluation obtained. CBC is unremarkable. Coag panel shows INR 1.2. Laboratory evaluation obtained. Creatinine 1.23 which is higher than patient's baseline compared to previous results. Urinalysis obtained showing no acute processes. Chest x-ray obtained showing no acute processes. Chart review was performed. Echocardiogram shows that patient had 55% ejection fraction. Patient states he just had a echocardiogram performed last week. States he has not been drinking fluids. Physical examination does suggest dehydration. Patient given the option to be admitted to observation with consultation to cardiology versus being discharged with outpatient management. Patient given intravenous fluids. He is reevaluated found to be in stable condition. He reports feeling mildly improved. Patient requesting discharge with outpatient management of his symptoms. She told to 18 adequate hydration. He is told that his kidneys appear mildly damaged however not to his severe extent. Patient told to return to the emergency Department with any worsening conditions. Medications reviewed. Patient is not on any beta blockers or calcium channel blockers EKG Interpretation: A 12 lead EKG was obtained. It was interpreted by myself and attending physician. There is a P wave before every QRS complex. Rate is 77. Rhythm is rhythm, WI interval 170, QS 180, QTc 509. QT is not prolonged. No ST segment depression or elevation. No sgarbossa criteria. Overall, this EKG is unremarkable - Lab Data Result diagrams: 04/24/18 17:45 04/24/18 17:45 Lab Results 04/24/18 04/24/18 04/24/18 Range/Units 17:45 17:45 17:45 WBC 7.6 (3.8-10.6) k/uL RBC 4.90 (4.30-5.90) m/uL Hgb 15.1 (13.0-17.5) gm/dL Hct 45.4 (39.0-53.0) % MCV 92.6 (80.0-100.0) fL MCH 30.7 (25.0-35.0) pg MCHC 33.2 (31.0-37.0) g/dL RDW 13.8 (11.5-15.5) % Plt Count 156 (150-450) k/uL Neutrophils % 73 % Lymphocytes % 13 % Monocytes % 9 % Eosinophils % 2 % Basophils % 1 % Neutrophils # 5.6 (1.3-7.7) k/uL Lymphocytes # 1.0 (1.0-4.8) k/uL Monocytes # 0.7 (0-1.0) k/uL Eosinophils # 0.2 (0-0.7) k/uL Basophils # 0.1 (0-0.2) k/uL PT 11.6 (9.0-12.0) sec INR 1.2 H (<1.2) Sodium 141 (137-145) mmol/L Potassium 4.0 (3.5-5.1) mmol/L Chloride 105 (98-107) mmol/L Carbon Dioxide 27 (22-30) mmol/L Anion Gap 9 mmol/L BUN 12 (9-20) mg/dL Creatinine 1.33 H (0.66-1.25) mg/dL Est GFR (CKD-EPI)AfAm 69 (>60 ml/min/1.73 sqM) Est GFR (CKD-EPI)NonAf 60 (>60 ml/min/1.73 sqM) Glucose 120 H (74-99) mg/dL Calcium 9.1 (8.4-10.2) mg/dL Total Bilirubin 1.0 (0.2-1.3) mg/dL AST 22 (17-59) U/L ALT 24 (21-72) U/L Alkaline Phosphatase 94 (38-126) U/L Troponin I (0.000-0.034) ng/mL Total Protein 6.4 (6.3-8.2) g/dL Albumin 3.7 (3.5-5.0) g/dL Urine Color Urine Appearance (Clear) Urine pH (5.0-8.0) Ur Specific [place] (1.001-1.035) Urine Protein (Negative) Urine Glucose (UA) (Negative) Urine Ketones (Negative) Urine Blood (Negative) Urine Nitrite (Negative) Urine Bilirubin (Negative) Urine Urobilinogen (<2.0) mg/dL Ur Leukocyte Esterase (Negative) Urine RBC (0-5) /hpf Urine WBC (0-5) /hpf Amorphous Sediment (None) /hpf Hyaline Casts (0-2) /lpf Urine Mucus (None) /hpf 04/24/18 04/24/18 Range/Units 17:45 19:35 WBC (3.8-10.6) k/uL RBC (4.30-5.90) m/uL Hgb (13.0-17.5) gm/dL Hct (39.0-53.0) % MCV (80.0-100.0) fL MCH (25.0-35.0) pg MCHC (31.0-37.0) g/dL RDW (11.5-15.5) % Plt Count (150-450) k/uL Neutrophils % % Lymphocytes % % Monocytes % % Eosinophils % % Basophils % % Neutrophils # (1.3-7.7) k/uL Lymphocytes # (1.0-4.8) k/uL Monocytes # (0-1.0) k/uL Eosinophils # (0-0.7) k/uL Basophils # (0-0.2) k/uL PT (9.0-12.0) sec INR (<1.2) Sodium (137-145) mmol/L Potassium (3.5-5.1) mmol/L Chloride (98-107) mmol/L Carbon Dioxide (22-30) mmol/L Anion Gap mmol/L BUN (9-20) mg/dL Creatinine (0.66-1.25) mg/dL Est GFR (CKD-EPI)AfAm (>60 ml/min/1.73 sqM) Est GFR (CKD-EPI)NonAf (>60 ml/min/1.73 sqM) Glucose (74-99) mg/dL Calcium (8.4-10.2) mg/dL Total Bilirubin (0.2-1.3) mg/dL AST (17-59) U/L ALT (21-72) U/L Alkaline Phosphatase (38-126) U/L Troponin I <0.012 (0.000-0.034) ng/mL Total Protein (6.3-8.2) g/dL Albumin (3.5-5.0) g/dL Urine Color Yellow Urine Appearance Clear (Clear) Urine pH 5.5 (5.0-8.0) Ur Specific [place] 1.023 (1.001-1.035) Urine Protein 1+ H (Negative) Urine Glucose (UA) Negative (Negative) Urine Ketones Negative (Negative) Urine Blood Negative (Negative) Urine Nitrite Negative (Negative) Urine Bilirubin 1+ H (Negative) Urine Urobilinogen 3.0 (<2.0) mg/dL Ur Leukocyte Esterase Negative (Negative) Urine RBC 2 (0-5) /hpf Urine WBC 1 (0-5) /hpf Amorphous Sediment Rare H (None) /hpf Hyaline Casts 263 H (0-2) /lpf Urine Mucus Moderate H (None) /hpf Disposition Clinical Impression: Dizziness Disposition: HOME SELF-CARE Condition: Good Is patient prescribed a controlled substance at d/c from ED?: No Referrals: Brigido Guajardo DO [Primary Care Provider] - 1-2 days Time of Disposition: 21:07
[2018-04-24 19:53] LABS: Basophils # (A) 0.1 k/uL (0-0.2); Basophils % (A) 1 %; Eosinophils # (A) 0.2 k/uL (0-0.7); Eosinophils % (A) 2 %; HCT 45.4 % (39.0-53.0); HGB 15.1 gm/dL (13.0-17.5); Lymphocytes % (A) 13 %; MCH 30.7 pg (25.0-35.0); MCHC 33.2 g/dL (31.0-37.0); MCV 92.6 fL (80.0-100.0); Mean Platelet Volume 7.5; Monocytes # (A) 0.7 k/uL (0-1.0); Monocytes % (A) 9 %; Neutrophils # (A) 5.6 k/uL (1.3-7.7); Neutrophils % (A) 73 %; Platelet Count 156 k/uL (150-450); RDW 13.8 % (11.5-15.5); WBC 7.6 k/uL (3.8-10.6)
[2018-04-24 19:55] LABS: Albumin 3.7 g/dL (3.5-5.0); Calcium 9.1 mg/dL (8.4-10.2); Total Protein 6.4 g/dL (6.3-8.2)
[2018-04-24 19:56] LABS: INR 1.2 (<1.2); Prothrombin Time 11.6 sec (9.0-12.0)
[2018-04-24 20:02] LABS: Amorphous Sediment,Urine Rare /hpf; Appearance,Urine Clear (Clear); Bilirubin,Urine 1+ (Negative); Blood,Urine Negative (Negative); Color,Urine Yellow; Glucose,Urine (UA) Negative (Negative); Hyaline Casts,Urine 263 /lpf (0-2); Ketones,Urine Negative (Negative); Leukocyte Esterase,Urine Negative (Negative); Mucus,Urine Moderate /hpf; Nitrite,Urine Negative (Negative); PH, Urine 5.5 (5.0-8.0); Protein,Urine 1+ (Negative); RBC,Urine 2 /hpf (0-5); Specific Gravity,Urine 1.023 (1.001-1.035); WBC,Urine 1 /hpf (0-5)
--- NOTE | 2018-04-24 20:09 | XR ---
EXAMINATION TYPE: XR chest 2V DATE OF EXAM: 04/24/2018 COMPARISON: Prior chest x-ray December 05, 2017 HISTORY: History of hypertension and COPD with dizziness and weakness. TECHNIQUE: Frontal and lateral views of the chest are obtained. FINDINGS: There is no focal air space opacity, pleural effusion, or pneumothorax seen. The cardiac silhouette size is within normal limits. Dual lead pacemaker is redemonstrated. The osseous structu res are intact. IMPRESSION: No acute cardiopulmonary process. No significant change from prior.
[2018-04-24] MEDS ORDERED: SODIUM CHLORIDE 0.9% 1,000 ML IV STA (20:43)
[2018-04-24 20:45] VITALS: PULSE 60
[2018-04-24 21:32] VITALS: BP 161/94; TEMP 97.9
== END 2018-04-24 22:07 | disposition home or self-care (01) ==
LOC: EC 17:37
DX: R42 Dizziness and giddiness (principal); J44.9 Chronic obstructive pulmonary disease, unspecified; E11.40 Type 2 diabetes mellitus with diabetic neuropathy, unspecified; K21.9 Gastro-esophageal reflux disease without esophagitis; E78.5 Hyperlipidemia, unspecified; F41.9 Anxiety disorder, unspecified; F17.200 Nicotine dependence, unspecified, uncomplicated; Z86.711 Personal history of pulmonary embolism; Z95.0 Presence of cardiac pacemaker; Z79.84 Long term (current) use of oral hypoglycemic drugs; Z79.51 Long term (current) use of inhaled steroids; Z79.01 Long term (current) use of anticoagulants; Z79.899 Other long term (current) drug therapy
CPT/HCPCS: 36415; 71046; 80053; 81001; 84484; 85025; 85610; 93005; 96360; 99285

== ENCOUNTER 2019-01-28 10:58 | Emergency (ER) | payer MEDICARE ==
[2019-01-28 11:02] VITALS: TEMP 98.1
[2019-01-28] MEDS ORDERED: IBUPROFEN 800 MG TAB PO STA (11:21)
[2019-01-28] MEDS ORDERED: LORATADINE-PSEUDOEPH 5-120 MG 1 EACH TAB.ER.12H PO STA (11:21)
[2019-01-28] MEDS ORDERED: ACETAMINOPHEN TAB 500 MG TAB PO STA (11:21)
--- NOTE | 2019-01-28 11:23 | ED ---
Headache HPI - General Chief Complaint: Headache Stated Complaint: Pain in head for 12 days Time Seen by Provider: 01/28/19 11:10 Source: RN notes reviewed, old records reviewed Mode of arrival: ambulatory Limitations: no limitations - History of Present Illness Initial Comments: This is a 58-year-old male the ER with right eye pain complaining of headache with eye pain with no changes in vision. No fevers. Patient states he doesn't with flu and illness about 2 weeks ago, this headache and eye pain going on for about 12 days episodic no improvement worse when he touches it. No recent known sick contacts. No nausea vomiting. Patient denies active having headache states the pain is more in the anterior around the orbit MD Complaint: headache -: week(s) Onset Description: gradual Location: right, other (Periorbital, right superior orbital ridge pain and tenderness) Severity: moderate (Worse with palpation) Severity scale (1-10): 4 Quality: aching, sharp Consistency: intermittent Improves With: nothing Worsens With: other (Palpation) - Related Data Home Medications Medication Instructions Recorded Confirmed ALPRAZolam [Xanax] 0.5 mg PO DAILY 10/23/14 04/24/18 Omeprazole [PriLOSEC] 20 mg PO AC-BRKFST 10/23/14 04/24/18 Dicyclomine [Bentyl] 10 mg PO DAILY 06/23/16 04/24/18 Multivitamins, Thera [Multivitamin 1 tab PO DIRECTED 06/23/16 04/24/18 (formulary)] Atorvastatin [Lipitor] 20 mg PO HS 11/09/16 04/24/18 metFORMIN HCL [Glucophage] 500 mg PO BID 11/09/16 04/24/18 Promethazine [Phenergan] 25 mg PO DAILY 06/25/17 04/24/18 traMADol HCL [Ultram] 50 mg PO BID 07/19/17 04/24/18 Thiamine [Vitamin B-1] 100 mg PO DAILY 07/24/17 04/24/18 Albuterol Nebulized [Ventolin 2.5 mg INHALATION RT-Q4H PRN 12/06/17 04/24/18 Nebulized] Budesonide-Formot 160-4.5 Mcg 2 puff INHALATION RT-BID 12/06/17 04/24/18 [Symbicort 160-4.5 Mcg Inhaler] Rivaroxaban [Xarelto] 15 mg PO DIRECTED 12/06/17 04/24/18 Simethicone [Gas-X] 125 mg PO DAILY 12/06/17 04/24/18 Albuterol Inhaler [Ventolin Hfa 1 puff INHALATION RT-QID PRN 03/29/18 04/24/18 Inhaler] Previous Rx's Medication Instructions Recorded Lisinopril [Prinivil] 10 mg PO DAILY #30 tab 11/10/16 Ipratropium Nebulized [Atrovent 0.5 mg INHALATION RT-QID #0 12/08/17 Nebulized 0.2 MG/ML] Amoxic-Pot Clav 875-125Mg 1 tab PO Q12HR #20 tablet 01/28/19 [Augmentin 875-125] Allergies Allergy/AdvReac Type Severity Reaction Status Date / Time No Known Allergies Allergy Verified 04/24/18 17:55 Review of Systems ROS Statement: Those systems with pertinent positive or pertinent negative responses have been documented in the HPI. ROS Other: All systems not noted in ROS Statement are negative. Past Medical History Past Medical History: COPD, Diabetes Mellitus, GERD/Reflux, Hyperlipidemia, Hypertension, Pulmonary Embolus (PE) Additional Past Medical History / Comment(s): Liver cirrhosis, IBS, Sciatica ddd neuropathy, diabetic neuropathy. third degree heart block. History of Any Multi-Drug Resistant Organisms: None Reported Past Surgical History: Orthopedic Surgery, Pacemaker Additional Past Surgical History / Comment(s): left foot surgery, pacemaker placed 11/09/2016, COLONOSCOPY scheduled for 05/27/2018. Past Anesthesia/Blood Transfusion Reactions: No Reported Reaction Type of Cardiac Device: Permanent Pacemaker Device Placement Date:: 11/08/2016 Past Psychological History: Anxiety Smoking Status: Current every day smoker Past Alcohol Use History: Occasional Past Drug Use History: None Reported - Past Family History Father History Unknown: Yes Family Medical History: No Reported History Mother History Unknown: Yes Family Medical History: Diabetes Mellitus General Exam - General Exam Comments Initial Comments: No palpation over temporal artery, no palpation to orbital proptosis, patient does have tenderness to superior orbital ridge Limitations: no limitations General appearance: alert, in no apparent distress Head exam: Present: atraumatic, normocephalic, normal inspection Eye exam: Present: normal appearance, PERRL, EOMI. Absent: scleral icterus, conjunctival injection, periorbital swelling ENT exam: Present: normal exam, mucous membranes moist Neck exam: Present: normal inspection. Absent: tenderness, meningismus, lymphad enopathy Respiratory exam: Present: normal lung sounds bilaterally. Absent: respiratory distress, wheezes, rales, rhonchi, stridor Cardiovascular Exam: Present: regular rate, normal rhythm, normal heart sounds. Absent: systolic murmur, diastolic murmur, rubs, gallop, clicks GI/Abdominal exam: Present: soft, normal bowel sounds. Absent: distended, tenderness, guarding, rebound, rigid Extremities exam: Present: normal inspection, full ROM, normal capillary refill. Absent: tenderness, pedal edema, joint swelling, calf tenderness Back exam: Present: normal inspection Neurological exam: Present: alert, oriented X3, CN II-XII intact Psychiatric exam: Present: normal affect, normal mood Skin exam: Present: warm, dry, intact, normal color. Absent: rash Course Vital Signs 01/28/19 11:00 Temperature 98.1 F Pulse Rate 87 Respiratory 18 Rate Blood Pressure 174/101 O2 Sat by Pulse 98 Oximetry Medical Decision Making - Medical Decision Making 58 male the ER for eversion of right eye pain, will treat a sinus infection sinus headache, does have normal computed tomography scan of orbits and brain - Radiology Data Radiology results: report reviewed (CT facial bones orbits and brain is negative for acute disease), image reviewed Disposition Clinical Impression: Sinus headache Disposition: HOME SELF-CARE Condition: Good Instructions (If sedation given, give patient instructions): Sinusitis (ED), Acute Headache (ED) Prescriptions: Amoxic-Pot Clav 875-125Mg [Augmentin 875-125] 1 tab PO Q12HR #20 tablet Is patient prescribed a controlled substance at d/c from ED?: No Referrals: Brigido Guajardo DO [Primary Care Provider] - 1-2 days
--- NOTE | 2019-01-28 11:53 | CT ---
EXAMINATION TYPE: CT brain wo con DATE OF EXAM: 01/28/2019 COMPARISON: 02/19/2012 HISTORY: Right supraorbital pain x [address] DLP: 1057.[address] of the brain was performed. The ventricles, basal cisterns and sulci overlying the cerebral convexities demonstrate mild enlargem ent. There is no evidence for intracranial hemorrhage or sulcal effacement. There is decreased attenuation about the periventricular white matter and deep white matter of both c erebral hemispheres, compatible with chronic small vessel ischemia. Differential diagnosis does inclu de demyelination. No mass effects are seen.No midline shift. Osseous calvarium is intact. If symptoms persist consider MRI. Moderate chronic sinusitis. IMPRESSION: 1. Age related atrophic and chronic small vessel ischemic change without acute intracranial process s een at this time.
--- NOTE | 2019-01-28 11:56 | CT ---
EXAMINATION TYPE: CT orbits wo con DATE OF EXAM: 01/28/2019 COMPARISON: None HISTORY: Right supraorbital pain x [address] DLP: 1057.6 mGycm Automated exposure control for dose reduction was used. Unenhanced CT of the orbits was performed. Th e lack of contrast limits evaluation. FINDINGS: The globes are symmetric. There is no evidence for intra or extraconal lesion or inflammatory change. Extraocular musculature appear to be symmetric. There is moderate maxillary and ethmoidal chronic si nusitis. No fractures are seen. IMPRESSION: NO DISTINCT ABNORMALITY OF THE ORBITS.
[2019-01-28] MEDS ORDERED: DEXAMETHASONE SOD PHOSPHATE 10 MG/ML 1 ML VIAL IM STA (12:50)
[2019-01-28 13:02] VITALS: BP 150/85; PULSE 57; RESP 16
== END 2019-01-28 13:15 | disposition home or self-care (01) ==
LOC: EC 10:58
DX: J32.9 Chronic sinusitis, unspecified (principal); J44.9 Chronic obstructive pulmonary disease, unspecified; E11.40 Type 2 diabetes mellitus with diabetic neuropathy, unspecified; K21.9 Gastro-esophageal reflux disease without esophagitis; E78.5 Hyperlipidemia, unspecified; I10 Essential (primary) hypertension; K58.9 Irritable bowel syndrome, unspecified; F41.9 Anxiety disorder, unspecified; F17.200 Nicotine dependence, unspecified, uncomplicated; Z79.01 Long term (current) use of anticoagulants; Z79.51 Long term (current) use of inhaled steroids; Z79.84 Long term (current) use of oral hypoglycemic drugs; Z79.891 Long term (current) use of opiate analgesic; Z79.899 Other long term (current) drug therapy; Z86.711 Personal history of pulmonary embolism; Z87.19 Personal history of other diseases of the digestive system; Z87.39 Personal history of other diseases of the musculoskeletal system and connective tissue; Z86.79 Personal history of other diseases of the circulatory system; Z95.0 Presence of cardiac pacemaker
CPT/HCPCS: 70450; 70480; 99284; 96372; J1100